=== PATIENT | female | born 1970 | race Caucasian/White ===

== ENCOUNTER 2016-07-16 20:50 | Emergency (ER) | payer MEDICAID ==
[~2016-07-16] VITALS: Ht 167.6 cm; Wt 95.4 kg
[~2016-07-16 20:50] MED LIST: ALBU2.5V4 IH; ALPR0.5T PO; BREX0.5T PO; CEFD300C3 PO; CEPH-507 PO; CEPH500C PO; CEPH500T PO; CLIN150C17 PO; CLIN300C11 PO; DIAZ5TAB3; DICL25CA4 PO; DOXY100T2 PO; FLUO40CA PO; FLX20C; GABA800T2 PO; HYDR-3820 PO; HYDR-700 PO; HYDR-757 PO; HYDR25TA4 PO; HYDR50CA3 PO; IBUP-1780 PO; IVER3TAB2 PO; LAMO25TA; LEVE500T99 PO; LEVO100T PO; LEVO125T PO; LEVO125T6 PO; LEVO750T9 PO; LISI1TAB8 PO; MUPI15CR11 TP; NAPR500T PO; NITR-65 PO; NITR100C10 PO; Norflex PO; OMEP40CA36 PO; ONDA4TAB11 PO; PERM60CR4 TOP; PHEN-827 PO; PRAZ600T2 PO; PRD20T PO; RISP0.2552 PO; RT-ALBUINH IH; SUMA100T3; TOPI100T11 PO; TPR100T PO; TRAM50TA2 PO; TRAZ-28 PO; TRAZ100T92 PO; [UNRECOGNIZED DRUG - REMARK]
[2016-07-16] MEDS ORDERED: ASPIRIN 81 MG CHEW (CHILDREN'S ASA) PO ONE (21:30)
[2016-07-16 21:44] LABS: BASOPHILS # (AUTO) 0.1 10^3/uL (0.0-0.1); BASOPHILS % (AUTO) 1 % (0-10); EOSINOPHILS # (AUTO) 0.4 10^3/uL (0.0-0.3); EOSINOPHILS % (AUTO) 4 % (0-10); LYMPHOCYTES # (AUTO) 5.1 X 10^3 (1.0-4.0); LYMPHOCYTES % (AUTO) 48 % (12-44); MEAN CORPUSCULAR HEMOGLOBIN 32 PG (25-34); MEAN CORPUSCULAR HGB CONC 34 G/DL (32-36); MEAN CORPUSCULAR VOLUME 93 FL (80-99); MEAN PLATELET VOLUME 9.8 FL (7.4-10.4); MONOCYTES # (AUTO) 0.9 X 10^3 (0.0-1.0); MONOCYTES % (AUTO) 9 % (0-12); NEUTROPHILS # (AUTO) 4.2 X 10^3 (1.8-7.8); NEUTROPHILS % (AUTO) 39 % (42-75); PLATELET COUNT 314 10^3/uL (130-400); RED BLOOD COUNT 4.42 10^6/uL (4.35-5.85); RED CELL DISTRIBUTION WIDTH 14.4 % (10.0-14.5); WHITE BLOOD COUNT 10.7 10^3/uL (4.3-11.0)
[2016-07-16 21:55] LABS: PROTHROMBIN TIME PATIENT 12.8 SEC (12.2-14.7)
[2016-07-16] MEDS ORDERED: RT-ALBUTEROL/IPRATROPIUM 3 ML (DUONEB) VIAL INH ONE (22:00)
[2016-07-16 22:04] LABS: ANION GAP 9 MMOL/L (5-14); BLOOD UREA NITROGEN 9 MG/DL (7-18); BUN/CREATININE RATIO 10; CARBON DIOXIDE 25 MMOL/L (21-32); CHLORIDE 108 MMOL/L (98-107); CREATININE SERUM 0.93 MG/DL (0.60-1.30); POTASSIUM 3.9 MMOL/L (3.6-5.0); SODIUM 142 MMOL/L (135-145)
[2016-07-16 22:05] LABS: ALANINE AMINOTRANSFERASE 10 U/L (0-55); ALBUMIN 3.8 G/DL (3.2-4.5); ASPARTATE AMINO TRANSFERASE 16 U/L (5-34); BILIRUBIN,TOTAL 0.2 MG/DL (0.1-1.0); CALCIUM 8.7 MG/DL (8.5-10.1); GFR ESTIMATED > 60; GLUCOSE 82 MG/DL (70-105); MAGNESIUM 2.4 MG/DL (1.8-2.4); TOTAL PROTEIN 6.9 G/DL (6.4-8.2)
[2016-07-16 22:10] LABS: MYOGLOBIN SERUM 27.1 NG/ML (10.0-92.0)
[2016-07-16] MEDS ORDERED: ONDA4TAB8 SL (23:11)
[2016-07-16] MEDS ORDERED: RT-ALBUINH IH (23:11)
--- NOTE | 2016-07-16 23:11 | ED Chest Pain ---
General Chief Complaint: General Problems/Pain Stated Complaint: LOW BP/VOMITING/CP/L SIDE NUMBNESS Nursing Triage Note: PT REPORTS SHE HAS HAD CP, DIZZINESS, DUNCAN, L ARM PAIN THAT HAS BEEN GOING ON FOR MONTHS. SHE REPORTS FATIGUE AND POOR APPETITE WELL. Nursing Sepsis Screen: No Definite Risk Source: patient Exam Limitations: no limitations History of Present Illness Time seen by provider: 21:16 Initial Comments This 45-year-old woman presents to the emergency room with numerous vague complaints. She describes vomiting in the parking lot just prior to checking in. She reports left facial numbness without weakness, lightheadedness, headache, and left chest and arm pain. The pain is reproducible with palpation. She reports having chest pain and shortness of air since having sepsis in February. Symptoms have been worse the past couple of days. She has had a remote cardiac workup but nothing performed recently. She complains of poor appetite recently. Pain is somewhat dependent on position and feels better when she is lying flat and still. She reports using her sister's supplemental oxygen at home which was helpful. She reports pain is a heaviness that is rated as a 10 at its worst and 7/10 now. She also complains of congestion, wheezing, and cough 3 months. She is a smoker. Allergies and Home Medications Allergies Coded Allergies: Sulfa (Sulfonamide Antibiotics) (Unverified Allergy, Severe, 11/30/06) PT STATES SHE'S "DEATHLY" ALLERGIC TO SULFA amoxicillin (Unverified Allergy, Severe, 11/30/06) Penicillins (Verified Allergy, Unknown, 12/22/06) moxifloxacin (Verified Allergy, Unknown, "HIGH FEVER, DIDN'T WAKE UP", CAN TAKE LEVAQUIN W/O PROBLEM, 12/22/06) Uncoded Allergies: AVALOX (Allergy, Intermediate, 11/30/06) FEVER AND VOMITTING Home Medications Albuterol Sulfate 18 Gm Hfa.aer.ad, 2 PUFF IH Q4H PRN for SHORTNESS OF BREATH, ( Reported) Albuterol Sulfate 2.5 Mg/3 Ml Vial.neb, 2.5 MG IH Q4H PRN for SHORTNESS OF BREATH, #30 Ref 1 Prescribed by: LIZBETH COFFMAN on 02/26/16 0066 Albuterol Sulfate 1 Puff Puff, 1-4 PUFF IH Q4H, #1 1 PUFF = 90 MCG Prescribed by: PAVEL JOY on 07/16/16 2311 Alprazolam 0.5 Mg Tablet, 0.5 MG PO BID PRN for ANXIETY, (Reported) Brexpiprazole 0.5 Mg Tablet, 0.5 MG PO UD, (Reported) FILLED 02/19/16 #30 1 TAB PO QD X 10 DAYS; THEN 2 TABS QD THEREAFTER Fluoxetine HCl 40 Mg Capsule, 40 MG PO DAILY, (Reported) Gabapentin 800 Mg Tablet, 800 MG PO TID, (Reported) Hydroxyzine Pamoate 50 Mg Capsule, 50 MG PO BID PRN for ANXIETY, (Reported) Ibuprofen 800 Mg Tablet, 800 MG PO TID PRN for PAIN, (Reported) Ivermectin 3 Mg Tablet, 3 MG PO ONCE, #1 Prescribed by: PAVEL JOY on 03/01/16 1230 Levothyroxine Sodium 125 Mcg Tablet, 125 MCG PO DAILY, (Reported) Lisinopril/Hydrochlorothiazide 1 Each Tablet, 1 TAB PO DAILY, (Reported) Omeprazole 40 Mg Capsule.dr, 40 MG PO DAILY, (Reported) Ondansetron 4 Mg Tab.rapdis, 4 MG SL Q4H, #10 Prescribed by: PAVEL JOY on 07/16/16 2311 Risperidone 0.25 Mg Tab.rapdis, 0.25 MG PO HS PRN for BAD THOUGHTS , (Reported) Sumatriptan Succinate 100 Mg Tablet, #9 (Reported) ONE TAB DAILY NEEDED; MAY REPEAT IN 2 HOURS IF HEADACHE REOCCURS Topiramate 100 Mg Tablet, 150 MG PO BID, (Reported) TAKES 1 & 1/2 OF A (100 MG) TABLETS Tramadol HCl 50 Mg Tablet, 50 MG PO Q6H PRN for PAIN, (Reported) Trazodone HCl 50 Mg Tablet, 50-100 MG PO HS PRN for SLEEP, (Reported) TAKES 1-2 (50 MG) TABLETS [Water Pill Otc ] , (Reported) Review of Systems Constitutional: see HPI EENTM: No Symptoms Reported Respiratory: See HPI Cardiovascular: See HPI Gastrointestinal: See HPI Genitourinary: No Symptoms Reported Musculoskeletal: see HPI Skin: no symptoms reported Psychiatric/Neurological: See HPI Endocrine: No Symptoms Reported Past Htnrkpq-Fgcbqg-Yckkwo Hx Patient Social History Alcohol Use: Denies Use Recreational Drug Use: No Smoking Status: Current Everyday Smoker Type Used: Cigarettes Recent Foreign Travel: No Contact w/Someone Who Travel: No Recent Infectious Disease Expo: No Recent Hopitalizations: No Immunizations Up To Date Tetanus Booster (TDap): More than 5yrs PED Vaccines UTD: No Date of Pneumonia Vaccine: Nov 26, 1999 Date of Influenza Vaccine: Feb 26, 2016 Seasonal Allergies Seasonal Allergies: No Surgeries HX Surgeries: Yes Surgeries: Appendectomy, Section, Gallbladder, Hysterectomy, Oophorectomy, Tubal Ligation Respiratory Hx Respiratory Disorders: Yes Respiratory Disorders: Pneumonia, COPD Cardiovascular Hx Cardiac Disorders: No Neurological Hx Neurological Disorders: Yes (CHRONIC HEADACHES) Neurological Disorders: Dementia, Headaches /Migraines, Seizure Disorder, Traumatic Brain Injury 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 System Hx 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 Disorders: No Sexually Transmitted Disease: No HIV/AIDS: No Female 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 Disorders: Denies FIELD TRAINER History: Hysterectomy Genitourinary Hx Genitourinary Disorders: Yes Genitourinary Disorders: Renal Failure, UTI-Chronic Gastrointestinal Hx Gastrointestinal Disorders: Yes Gastrointestinal Disorders: Gastroesophageal Reflux Musculoskeletal Hx Musculoskeletal Disorders: Yes Musculoskeletal Disorders: Degenerate Disk Disease, Chronic Back Pain Endocrine Hx Endocrine Disorders: Yes Endocrine Disorders: Hypothyroidsim HEENT HX ENT Disorders: No Loss of Vision: Denies Hearing Impairment: Denies Cancer Hx Cancer: No Psychosocial Hx Psychiatric Problems: Yes Behavioral Health Disorders: Anxiety, Depression Integumentary HX Skin/Integumentary Disorder: Yes (MRSA) Blood Transfusions Hx Blood Disorders: No Adverse Reaction to a Blood Tr: No Family Medical History Significant Family History: Diabetes, Psychiatric Problems, Renal Disease, Stroke, Vascular Disease Family Medial History: Arthritis 19 MOTHER GRANDMOTHER Cataracts GRANDMOTHER GRANDMOTHER Congenital heart disease 19 FATHER Diabetes mellitus 19 MOTHER FH: defects GRAND-DAUGHTER (3 LUNGS, 36 FINGER AND TOES) FH: brain aneurysm FH: irritable bowel syndrome 19 MOTHER FH: ovarian cancer PATERNAL AUNTS FH: pneumonia 19 MOTHER FH: uterine cancer PATERNAL AUNTS Glaucoma GRANDMOTHER GRANDMOTHER Kidney infection 19 FATHER Visual disorder GRANDMOTHER GRANDMOTHER Physical Exam Vital Signs Vital Sign - Last 12Hours 07/16/16 21:13 Temp 98.9 Pulse 53 Resp 16 B/P (MAP) 115/78 Pulse Ox 100 O2 Delivery Room Air Capillary Refill : Less Than 3 Seconds General Appearance: WD/WN, Mild Distress HEENT: PERRL/EOMI, Normal ENT Inspection, Pharynx Normal Neck: Normal Inspection Respiratory: No Accessory Muscle Use, No Respiratory Distress, Wheezing, Other (Left chest wall tender to palpation) Cardiovascular: Regular Rate, Rhythm, No Edema, No Murmur Gastrointestinal: Normal Bowel Sounds, Non Tender, Soft Extremity: Normal Inspection, No Pedal Edema, Calf Tenderness (Equal bilaterally) Neurologic/Psychiatric: Alert, Oriented x3, No Motor/Sensory Deficits, biologist aide II- XII Norm as Tested, Other (Anxious) Skin: Normal Color, Warm/Dry Progress/Results/Core Measures Results/Orders Lab Results Laboratory Tests Test 07/16/16 21:35 07/16/16 22:15 Range/Units White Blood Count 10.7 4.3-11.0 10^3/uL Red Blood Count 4.42 4.35-5.85 10^6/uL Hemoglobin 14.0 11.5-16.0 G/DL Hematocrit 41 35-52 % Mean Corpuscular Volume 93 80-99 FL Mean Corpuscular Hemoglobin 32 25-34 PG Mean Corpuscular Hemoglobin Concent 34 32-36 G/DL Red Cell Distribution Width 14.4 10.0-14.5 % Platelet Count 314 130-400 10^3/uL Mean Platelet Volume 9.8 7.4-10.4 FL Neutrophils (%) (Auto) 39 L 42-75 % Lymphocytes (%) (Auto) 48 H 12-44 % Monocytes (%) (Auto) 9 0-12 % Eosinophils (%) (Auto) 4 0-10 % Basophils (%) (Auto) 1 0-10 % Neutrophils # (Auto) 4.2 1.8-7.8 X 10^3 Lymphocytes # (Auto) 5.1 H 1.0-4.0 X 10^3 Monocytes # (Auto) 0.9 0.0-1.0 X 10^3 Eosinophils # (Auto) 0.4 H 0.0-0.3 10^3/uL Basophils # (Auto) 0.1 0.0-0.1 10^3/uL Prothrombin Time 12.8 12.2-14.7 SEC INR Comment 1.0 0.8-1.4 Activated Partial Thromboplast Time 29 24-35 SEC Sodium Level 142 135-145 MMOL/L Potassium Level 3.9 3.6-5.0 MMOL/L Chloride Level 108 H 98-107 MMOL/L Carbon Dioxide Level 25 21-32 MMOL/L Anion Gap 9 5-14 MMOL/L Blood Urea Nitrogen 9 7-18 MG/DL Creatinine 0.93 0.60-1.30 MG/DL Estimat Glomerular Filtration Rate > 60 BUN/Creatinine Ratio 10 Glucose Level 82 70-105 MG/DL Calcium Level 8.7 8.5-10.1 MG/DL Magnesium Level 2.4 1.8-2.4 MG/DL Total Bilirubin 0.2 0.1-1.0 MG/DL Aspartate Amino Transf (AST/SGOT) 16 5-34 U/L Alanine Aminotransferase (ALT/SGPT) 10 0-55 U/L Alkaline Phosphatase 86 40-136 U/L Myoglobin 27.1 10.0-92.0 NG/ML Troponin I < 0.30 <0.30 NG/ML C-Reactive Protein High Sensitivity 0.03 0.00-0.50 MG/DL Total Protein 6.9 6.4-8.2 G/DL Albumin 3.8 3.2-4.5 G/DL Urine Opiates Screen POSITIVE H NEGATIVE Urine Oxycodone Screen NEGATIVE NEGATIVE Urine Methadone Screen NEGATIVE NEGATIVE Urine Propoxyphene Screen NEGATIVE NEGATIVE Urine Barbiturates Screen NEGATIVE NEGATIVE Ur Tricyclic Antidepressants Screen NEGATIVE NEGATIVE Urine Phencyclidine Screen NEGATIVE NEGATIVE Urine Amphetamines Screen NEGATIVE NEGATIVE Urine Methamphetamines Screen NEGATIVE NEGATIVE Urine Benzodiazepines Screen NEGATIVE NEGATIVE Urine Cocaine Screen NEGATIVE NEGATIVE Urine Cannabinoids Screen NEGATIVE NEGATIVE My Orders Orders - PAVEL NASH MD Cbc With Automated Diff (07/16/16 21:25) Magnesium (07/16/16 21:25) Ekg Tracing (07/16/16 21:25) Cardiac Profile 1 (07/16/16 21:25) Comprehensive Metabolic Panel (07/16/16 21:25) Myoglobin Serum (07/16/16 21:25) Protime With Inr (07/16/16 21:25) Partial Thromboplastin Time (07/16/16 21:25) O2 (07/16/16 21:25) Monitor-Rhythm Ecg Trace Only (07/16/16 21:25) Aspirin Chewable Tablet (Baby Aspirin Ch (07/16/16 21:30) Saline Lock/Iv-Start (07/16/16 21:25) Hs C Reactive Protein (07/16/16 21:25) Drug Screen Stat (Urine) (07/16/16 21:25) Chest Pa/Lat (2 View) (07/16/16 21:28) Albuterol/Ipra Inhalation Soln (Duoneb I (07/16/16 22:00) Svn Sm Volume Nebulizer Rt-Rfs (07/16/16 21:57) Ketorolac Injection (Toradol Injection) (07/16/16 23:15) Medications Given in ED Vital Signs/I&O Vital Sign - Last 12Hours 07/16/16 07/16/16 07/16/16 21:13 22:04 23:24 Temp 98.9 Pulse 53 51 Resp 16 18 B/P (MAP) 115/78 Pulse Ox 100 98 96 O2 Delivery Room Air Blood Pressure Mean: 90 Progress Note : Progress Note Workup was relatively unremarkable. Patient received a DuoNeb treatment with some improvement. She requested to be dismissed after arrived. ECG Initial ECG Impression Date: Jul 16, 2016 Initial ECG Impression Time: 21:24 Initial ECG Rate: 52 Initial ECG Rhythm: Normal Sinus Comment Normal sinus rhythm with no ST elevation or depression. No abnormal intervals or axis deviation. Nonspecific T wave abnormalities. Diagnostic Imaging Diagonstic Imaging: Xray Plain Films/CT/US/NM/MRI: chest Comments Chest x-ray viewed by me. Report not yet available. No acute abnormalities appreciated. Departure Impression Impression: Primary Impression: Chest wall pain Additional Impressions: Headache Qualified Codes: R51 - Headache Nausea Myalgia Wheezing Disposition: 01 HOME, SELF-CARE Condition: Improved Departure-Patient Inst. Decision time for Depature: 23:00 Referrals: JOSE MCLEAN MD (PCP) Primary Care Physician [facility] (Family) Primary Care Physician Patient Instructions: Chest Pain That Is Not Caused by the Heart (DC) Add. Discharge Instructions: Follow-up with your primary care provider soon as possible. Return to the ER symptoms worsen. You may take Tylenol and/or ibuprofen for pain. Discontinue smoking as soon as possible. Use your inhaler as directed for wheezing. All discharge instructions reviewed with patient and/or family. Voiced understanding. Scripts Ondansetron (Zofran Odt) 4 Mg Tab.rapdis 4 MG SL Q4H, #10 TAB Prov: PAVEL NASH MD 07/16/16 Albuterol Sulfate (PROAIR HFA) 1 Puff Puff 1-4 PUFF IH Q4H, #1 PUFF 1 PUFF = 90 MCG Prov: PAVEL NASH MD 07/16/16 Copy Copies To 1: JOSE MCLEAN MD, JOSHUA T MD Jul 16, 2016 23:11
[2016-07-16] MEDS ORDERED: KETOROLAC 30 MG/ML VIAL IVP ONE (23:15)
[2016-07-16 23:24] VITALS: BP 97/61
--- NOTE | 2016-07-17 07:50 | Diagnostic Imaging Report ---
EXAMINATION: PA and lateral views of the chest. INDICATION: Chest pain and headache. FINDINGS: The lungs are clear. The heart size is normal. No effusion or pneumothorax Mediastinum and jeannie appear unremarkable. IMPRESSION: Unremarkable exam. Dictated by: Dictated on workstation # [id number]
--- OUTSIDE RECORDS SUMMARY | 2016-08-17 00:16 | XMS REPORT ---
Author Author GLADYS AUSTIN Organization [employer] Address Unknown Phone Unavailable Care Team Providers Care Camp Tender Name Role Phone GLADYS AUSTIN CP Unavailable Allergies No Known Allergies Problems Problem Type Condition Code Onset Dates Condition Status Problem Unspecified constipation 564.00 Active Problem Cellulitis and abscess of face 682.0 Active Problem Abdominal pain, generalized 789.07 Active Problem Diarrhea 787.91 Active Problem Acute nasopharyngitis (common cold) 460 Active Problem Lumbago 724.2 Active Problem Chest pain, unspecified 786.50 Active Problem Helicobacter pylori (H. pylori) infection 041.86 Active Problem Acute sinusitis, unspecified 461.9 Active Problem Cellulitis and abscess of leg, except foot 682.6 Active Problem Chronic back pain 724.5 Active Problem COPD (chronic obstructive pulmonary disease) 496 Active Problem PTSD (post-traumatic stress disorder) 309.81 Active Problem UTI (urinary tract infection) 599.0 Active Problem Pyelonephritis 590.80 Active Problem Special screening examination, human papillomavirus [HPV] V73.81 Active Problem Screening for malignant neoplasm of the cervix V76.2 Active Problem Facial abscess L02.01 Active Problem Unspecified breast screening V76.10 Active Problem Migraine 346.90 Active Problem Depression 311 Active Problem Degenerative disc disease, lumbar 722.52 Active Problem Insomnia 780.52 Active Problem Other affections of shoulder region, not elsewhere classified 726.2 Active Problem Esophageal reflux 530.81 Active Problem Urinary tract infection, site not specified 599.0 Active Problem Restless legs syndrome [RLS] 333.94 Active Problem Acute bronchitis 466.0 Active Problem Palpitations 785.1 Active Problem Pain in joint, pelvic region and thigh 719.45 Active Problem Thoracic or lumbosacral neuritis or radiculitis, unspecified 724.4 Active Medications Medication Code System Code Instructions Start Date End Date Status Dosage Diflucan [facility] [address]-11 150 MG Orally Once a day, repeat in 1 week Feb 04, 2015 1 tablet Results No Known Results Summary Purpose [employer] Submission
--- OUTSIDE RECORDS SUMMARY | 2016-08-17 00:16 | XMS REPORT ---
Author Author GLADYS AUSTIN Organization [employer] Address Unknown Phone Unavailable Care Team Providers Care Monorail Helper Name Role Phone GLADYS AUSTIN CP Unavailable Allergies No Known Allergies Problems Problem Type Condition ICD-9 Code Onset Dates Condition Status Problem Unspecified constipation 564.00 Active Problem Cellulitis and abscess of face 682.0 Active Problem Abdominal pain, generalized 789.07 Active Problem Diarrhea 787.91 Active Problem Acute nasopharyngitis (common cold) 460 Active Problem Palpitations 785.1 Active Problem Lumbago 724.2 Active Problem Chest pain, unspecified 786.50 Active Problem Helicobacter pylori (H. pylori) infection 041.86 Active Problem Acute sinusitis, unspecified 461.9 Active Problem PTSD (post-traumatic stress disorder) 309.81 Active Problem Chronic back pain 724.5 Active Problem Pyelonephritis 590.80 Active Problem Degenerative disc disease, lumbar 722.52 Active Problem Screening for malignant neoplasm of the cervix V76.2 Active Problem Unspecified breast screening V76.10 Active Problem UTI (urinary tract infection) 599.0 Active Problem Cellulitis and abscess of leg, except foot 682.6 Active Problem Depression 311 Active Problem COPD (chronic obstructive pulmonary disease) 496 Active Problem Insomnia 780.52 Active Problem Migraine 346.90 Active Problem Restless legs syndrome [RLS] 333.94 Active Problem Other affections of shoulder region, not elsewhere classified 726.2 Active Problem Special screening examination, human papillomavirus [HPV] V73.81 Active Problem Urinary tract infection, site not specified 599.0 Active Problem Thoracic or lumbosacral neuritis or radiculitis, unspecified 724.4 Active Problem Acute bronchitis 466.0 Active Problem Esophageal reflux 530.81 Active Problem Pain in joint, pelvic region and thigh 719.45 Active Medications No Known Medications Results No Known Results Summary Purpose [employer]Clinical[employer] Submission
--- OUTSIDE RECORDS SUMMARY | 2016-08-17 00:17 | XMS REPORT ---
Author Author GLADYS AUSTIN [facility] e[employer] Address Unknown Phone Unavailable Care Team Providers Care Emergency Vehicle Operations Instructor Name Role Phone GLADYS AUSTIN CP Unavailable Allergies, Adverse Reactions, Alerts Substance Reaction Event Type SulfADIAZINE rash Drug Allergy Depakote nausea Drug Allergy Avelox rash Drug Allergy Augmentin rash Drug Allergy Problems Problem Type Condition Code Onset Dates Condition Status Problem Unspecified constipation 564.00 Active Assessment Right wrist pain M25.531 Active Problem Abdominal pain, generalized 789.07 Active Problem Cellulitis and abscess of face 682.0 Active Problem Diarrhea 787.91 Active Problem Acute nasopharyngitis (common cold) 460 Active Problem Lumbago 724.2 Active Problem Helicobacter pylori (H. pylori) infection 041.86 Active Problem Cellulitis and abscess of leg, except foot 682.6 Active Problem Chronic back pain 724.5 Active Problem Unspecified breast screening V76.10 Active Problem PTSD (post-traumatic stress disorder) 309.81 Active Problem Screening for malignant neoplasm of the cervix V76.2 Active Problem COPD (chronic obstructive pulmonary disease) 496 Active Problem Migraine 346.90 Active Problem Depression 311 Active Problem Strain of right wrist S66.911A Active Problem Facial abscess L02.01 Active Problem Restless legs syndrome [RLS] 333.94 Active Problem Urinary tract infection, site not specified 599.0 Active Problem Right wrist pain M25.531 Active Problem Special screening examination, human papillomavirus [HPV] V73.81 Active Problem Degenerative disc disease, lumbar 722.52 Active Problem Insomnia 780.52 Active Problem UTI (urinary tract infection) 599.0 Active Problem Pyelonephritis 590.80 Active Problem Pain in joint, pelvic region and thigh 719.45 Active Problem Thoracic or lumbosacral neuritis or radiculitis, unspecified 724.4 Active Problem Other affections of shoulder region, not elsewhere classified 726.2 Active Problem Esophageal reflux 530.81 Active Problem Chest pain, unspecified 786.50 Active Problem Acute sinusitis, unspecified 461.9 Active Problem Acute bronchitis 466.0 Active Problem Palpitations 785.1 Active Medications Medication Code System Code Instructions Start Date End Date Status Dosage Gabapentin [facility] [address]-95 800 MG Orally Three times a day 1 tablet Lisinopril-Hydrochlorothiazide [facility] [address]-79 20-12.5 MG Orally Once a day Jan 29, 2015 1 tablet Omeprazole [facility] [address]-32 40 MG Orally Once a day 1 capsule Tramadol HCl [facility] [address]-12 50 MG Orally Once a day at Apr 08, 2015 1 tablet as needed Ibuprofen [facility] [address]-83 800 MG Orally Three times a day 1 tablet Topiramate [facility] [address]-45 100 MG Orally Twice a day 1 tablet Procedures Procedure Coding System Code Date Office Visit, Est Pt., Level 3 CPT-4 78795 Apr 08, 2015 Vital Signs Date/Time: Apr 08, 2015 Temperature 98.0 F Weight 190.8 lbs Height 64 in BMI 32.75 Index Blood Pressure Diastolic 86 mmHg Blood Pressure Systolic 112 mmHg Cardiac Monitoring Heart Rate 68 bpm Results No Known Results Summary Purpose [employer]ClinicalWorks Submission
--- OUTSIDE RECORDS SUMMARY | 2016-08-17 00:17 | XMS REPORT ---
Author Author JAI CORTEZ [facility] e[employer] Address Unknown Phone Unavailable Care Team Providers Care Nurse Behavioral Health Care Name Role Phone JAI CORTEZ CP Unavailable Allergies No Known Allergies Problems Problem Type Condition Code Onset Dates Condition Status Problem Hx of migraines Z86.69 Active Problem GERD (gastroesophageal reflux disease) K21.9 Active Problem HTN (hypertension) I10 Active Problem History of MRSA infection Z86.14 Active Problem Family history of diabetes mellitus Z83.3 Active Problem Lumbago with sciatica, left side M54.42 Active Problem Schizoaffective disorder, unspecified type F25.9 Active Problem Lumbago with sciatica, right side M54.41 Active Problem History of seizures Z87.898 Active Problem Hypothyroidism E03.9 Active Problem Anxiety state, unspecified F41.1 Active Problem Depression, unspecified depression type F32.9 Active Medications Medication Code System Code Instructions Start Date End Date Status Dosage Questran Light [facility] [address]-29 4 GM/DOSE Orally Twice a day Dec 09, 2015 1 null Results No Known Results Summary Purpose [employer]ClinicalWorks Submission
--- OUTSIDE RECORDS SUMMARY | 2016-08-17 00:17 | XMS REPORT ---
Author JAI Dobbins [facility] e[employer] Address Unknown Phone Unavailable Care Team Providers Care Production Or Plant Engineer Name Role Phone JAI CORTEZ CP Unavailable Allergies, Adverse Reactions, Alerts Substance Reaction Event Type Sulfamethoxazole-Trimethoprim anaphylaxis Drug Allergy Sulfamethoxazole-Trimethoprim anaphylaxis Drug Allergy Levaquin Info Not Available Drug Allergy Depakote nausea Drug Allergy Avelox rash Drug Allergy Augmentin anaphylaxis Drug Allergy Augmentin rash Drug Allergy Problems Problem Type Condition Code Onset Dates Condition Status Problem Hx of migraines Z86.69 Active Problem GERD (gastroesophageal reflux disease) K21.9 Active Problem HTN (hypertension) I10 Active Problem Lumbago with sciatica, left side M54.42 Active Problem Schizoaffective disorder, unspecified type F25.9 Active Problem Lumbago with sciatica, right side M54.41 Active Problem History of seizures Z87.898 Active Problem Hypothyroidism E03.9 Active Problem Anxiety state, unspecified F41.1 Active Problem Depression, unspecified depression type F32.9 Active Assessment HTN (hypertension) I10 Active Assessment Lumbago with sciatica, right side M54.41 Active Assessment Depression, unspecified depression type F32.9 Active Assessment Other chronic pain G89.29 Active Problem History of MRSA infection Z86.14 Active Assessment Lumbago with sciatica, left side M54.42 Active Problem Family history of diabetes mellitus Z83.3 Active Medications Medication Code System Code Instructions Start Date End Date Status Dosage Valium [facility] [address]-37 5 mg Orally Once a day October 22, 2015 1 tablet as needed HydrOXYzine HCl [facility] [address]-70 50 MG Orally every 6 hrs 1 tablet as needed Omeprazole [facility] [address]-93 40 MG Orally Once a day 1 capsule Promethazine HCl [facility] [address]-99 25 MG Orally every 12 hrs October 03, 2015 1 tablet as needed Prozac [facility] [address]-04 40 mg Orally Once a day October 22, 2015 1 capsule in the morning Zofran [facility] [address]-17 8 MG Orally 3 times a day 1 tablet as needed Keppra [facility] [address]-14 500 MG Orally 2 times a day 1 tablet Ibuprofen [facility] [address]-08 800 MG Orally Three times a day 1 tablet Gabapentin [facility] [address]-89 800 MG Orally Three times a day 1 tablet Ventolin HFA [facility] [address]-20 108 (90 Base) MCG/ACT Inhalation every 4 hrs 2 puffs as needed Levothyroxine Sodium [facility] [address]-56 125 mcg Orally Once a day 1 tablet Lisinopril [facility] [address]-00 10 mg Orally Once a day October 31, 2015 1 tablet Tramadol HCl [facility] [address]-11 50 mg Orally every 6 hours 1 Procedures Procedure Coding System Code Date Office Visit, Est Pt., Level 4 CPT-4 20234 October 31, 2015 Vital Signs Date/Time: October 31, 2015 Cardiac Monitoring Heart Rate 68 bpm Weight 186.2 lbs Height 64 in Blood Pressure Diastolic 70 mmHg Blood Pressure Systolic 94 mmHg Results No Known Results Summary Purpose eClinicalWorks Submission
--- OUTSIDE RECORDS SUMMARY | 2016-08-17 00:17 | XMS REPORT ---
Author Author GLADYS AUSTIN [facility] eClinicalWorks Address Unknown Phone Unavailable Care Team Providers Care Lathe Setup Operator Name Role Phone GLADYS AUSTIN CP Unavailable Allergies, Adverse Reactions, Alerts Substance Reaction Event Type SulfADIAZINE rash Drug Allergy Depakote nausea Drug Allergy Avelox rash Drug Allergy Augmentin rash Drug Allergy Problems Problem Type Condition Code Onset Dates Condition Status Assessment Essential hypertension I10 Active Problem Unspecified constipation 564.00 Active Assessment Cellulitis and abscess of face 682.0 Active Problem Cellulitis and abscess of face [...] Instructions Start Date End Date Status Dosage Omeprazole [facility] [address]-11 40 MG Orally Once a day 1 capsule Bactroban [facility] [address]-42 2 % Externally Three times a day 1 application to affected area Clindamycin HCl [facility] [address]-03 300 MG Orally every 8 hrs Jan 22, 2015 Feb 01, 2015 1 capsule Tramadol HCl [facility] [address]-16 50 MG Orally 3 times a day, PRN Dec 26, 2014 1 tablet as needed Doxycycline Hyclate [facility] [address]-74 100 MG Orally every 12 hrs 1 capsule Potassium Chloride [facility] [address]-48 20 MEQ Orally Twice a day 1 tablet Topiramate [facility] [address]-98 100 MG Orally Twice a day 1 tablet Ibuprofen [facility] [address]-17 800 MG Orally Three times a day 1 tablet Gabapentin [facility] [address]-65 800 MG Orally Three times a day 1 tablet Lisinopril-Hydrochlorothiazide [facility] [address]-25 20-12.5 MG Orally Once a day Jan 29, 2015 1 tablet Rifampin [facility] [address]-62 300 MG Orally 3 times a day Jan 22, 2015 1 cap Procedures Procedure Coding System Code Date Office Visit, Est Pt., Level 3 CPT-4 03528 Jan 29, 2015 Vital Signs Date/Time: Jan 29, 2015 Temperature 98 F Weight 187 lbs Height 64 in BMI 32.09 Index Blood Pressure Diastolic 95 mmHg Blood Pressure Systolic 150 mmHg Cardiac Monitoring Heart Rate 70 bpm Results No Known Results Summary Purpose eClinicalWorks Submission
--- OUTSIDE RECORDS SUMMARY | 2016-08-17 00:18 | XMS REPORT ---
Author Author JOSE MCLEAN Organization eClinicalWorks Address Unknown Phone Unavailable Care Team Providers Care Board Finisher Name Role Phone JOSE MCLEAN CP Unavailable Allergies No Known Allergies Problems Problem Type Condition Code Onset Dates Condition Status Problem GERD (gastroesophageal reflux disease) K21.9 Active Problem History of seizures Z87.898 Active Problem Hypothyroidism E03.9 Active Problem Irritable bowel syndrome with diarrhea K58.0 Active Problem Lumbago with sciatica, right side M54.41 Active Problem High risk sexual behavior Z72.51 Active Problem Anxiety state, unspecified F41.1 Active Problem Depression, unspecified depression type F32.9 Active Problem Lumbago with sciatica, left side M54.42 Active Problem Schizoaffective disorder, unspecified type F25.9 Active Problem History of MRSA infection Z86.14 Active Problem Family history of diabetes mellitus Z83.3 Active Problem Hx of migraines Z86.69 Active Problem HTN (hypertension) I10 Active Medications Medication Code System Code Instructions Start Date End Date Status Dosage Magic Mouthwash NDC 0 30 ML each of 2% Viscous Lidocaine/Maalox/Benadryl Oral Swish and Spit 4 times daily as needed Mar 03, 2016 Mar 17, 2016 5 ML Results No Known Results Summary Purpose eClinicalWorks Submission
--- OUTSIDE RECORDS SUMMARY | 2016-08-17 00:18 | XMS REPORT ---
Author Author JOSE MCLEAN [facility] eClinicalWorks Address Unknown Phone Unavailable Care Team Providers Care Author Agent Name Role Phone JOSE MCLEAN CP Unavailable Allergies, Adverse Reactions, Alerts Substance Reaction Event Type Sulfamethoxazole-Trimethoprim anaphylaxis Drug Allergy Levaquin Info Not Available Drug Allergy Depakote nausea Drug Allergy Avelox rash Drug Allergy Augmentin anaphylaxis Drug Allergy Problems Problem Type Condition Code [...] Problem Schizoaffective disorder, unspecified type F25.9 Active Assessment Hypotension, unspecified hypotension type I95.9 Active Assessment Acute cystitis with hematuria N30.01 Active Problem History of MRSA infection Z86.14 Active Problem Family history of diabetes mellitus Z83.3 Active Assessment History of MRSA infection Z86.14 Active Problem Hx of migraines Z86.69 Active Assessment Community acquired pneumonia J18.9 Active Problem HTN (hypertension) I10 Active Medications Medication Code System Code Instructions Start Date End Date Status Dosage Imitrex [facility] [address]-19 100 MG Orally 1 time per day and repeat once more after 2 hours if headache recurs PRN Nov 29, 2015 1 tablet Tramadol HCl [facility] [address]-96 50 mg Orally every 6 hours 1 Ventolin HFA [facility] [address]-23 108 (90 Base) MCG/ACT Inhalation every 4 hrs 2 puffs as needed Abilify [facility] [address]-42 5 mg Orally Once a day Jan 14, 2016 1 tablet Omeprazole [facility] [address]-81 40 MG Orally Once a day 1 capsule Topiramate [facility] [address]-54 100 MG Orally Twice a day 1.5 tablets Omeprazole [facility] [address]-02 40 mg Orally Once a day 1 capsule Prozac [facility] [address]-55 40 mg Orally Once a day October 22, 2015 1 capsule in the morning Lisinopril [facility] [address]-89 10 mg Orally Once a day October 31, 2015 1 tablet Gabapentin [facility] [address]-16 800 MG Orally Three times a day 1 tablet Alprazolam [facility] [address]-97 0.5 MG Orally Twice a day as needed 1 tablet HydrOXYzine HCl [facility] [address]-16 50 MG Orally every 6 hrs 1 tablet as needed Levothyroxine Sodium [facility] [address]-10 125 mcg Orally Once a day 1 tablet Procedures Procedure Coding System Code Date Office Visit, Est Pt., Level 4 CPT-4 28776 Feb 25, 2016 MEASURE BLOOD OXYGEN LEVEL CPT-4 90911 Feb 25, 2016 Vital Signs Date/Time: Feb 25, 2016 Cardiac Monitoring Heart Rate 59 bpm Weight 206.9 lbs Height 64 in BMI 35.51 Index Oximetry 99 % Blood Pressure Diastolic 77 mmHg Blood Pressure Systolic 92 mmHg Results No Known Results Summary Purpose eClinicalWorks Submission
--- OUTSIDE RECORDS SUMMARY | 2016-08-17 00:18 | XMS REPORT ---
Author Author GLADYS AUSTIN [facility] eClinicalWorks Address Unknown Phone Unavailable Care Team Providers Care Cras Name Role Phone GLADYS AUSTIN CP Unavailable Allergies, Adverse Reactions, Alerts Substance Reaction Event Type SulfADIAZINE rash Drug Allergy Depakote nausea Drug Allergy Avelox rash Drug Allergy Augmentin rash Drug Allergy Problems Problem Type Condition Code Onset Dates Condition Status Problem Unspecified constipation 564.00 Active Assessment Facial abscess L02.01 Active Problem Cellulitis and abscess of face [...] Instructions Start Date End Date Status Dosage Bactroban [facility] [address]-17 2 % Externally Three times a day 1 application to affected area Gabapentin [facility] [address]-40 800 MG Orally Three times a day [address] [facility] [address]-11 20 MEQ Orally Twice a day [address] [facility] [address]-54 300 MG Orally every 8 hrs Jan 22, 2015 Feb 01, [address] [facility] [address]-48 40 MG Orally Once a day [address] [facility] [address]-78 100 MG Orally Twice a day [address] [facility] [address]-68 300 MG Orally 3 times a day Jan 22, [address] [facility] [address]-44 100 MG Orally every 12 hrs [address] [facility] [address]-26 50 MG Orally 3 times a day, PRN Dec 26, 2014 1 tablet as needed Ibuprofen [facility] [address]-70 800 MG Orally Three times a day 1 tablet Procedures Procedure Coding System Code Date ROCEPHIN 1 GM (IM) CPT-4 J0696 Jan 22, 2015 THER/PROPH/DIAG INJ, SC/IM CPT-4 73238 Jan 22, 2015 Office Visit, Est Pt., Level 3 CPT-4 25076 Jan 22, 2015 Vital Signs Date/Time: Jan 22, 2015 Temperature 97.8 F Weight 191 lbs Height 64 in BMI 32.78 Index Blood Pressure Diastolic 80 mmHg Blood Pressure Systolic 130 mmHg Cardiac Monitoring Heart Rate 61 bpm Results No Known Results Summary Purpose eClinicalWorks Submission
--- OUTSIDE RECORDS SUMMARY | 2016-08-17 00:18 | XMS REPORT ---
Author Author NICOLA SYLVESTER Organization eClinicalWorks Address Unknown Phone Unavailable Care Team Providers Care Hoseman Name Role Phone NICOLA SYLVESTER CP Unavailable Allergies, Adverse Reactions, Alerts Substance Reaction Event Type SulfADIAZINE rash Drug Allergy Levaquin Info Not Available Drug Allergy Depakote nausea Drug Allergy Avelox rash Drug Allergy Augmentin rash Drug Allergy Problems Problem Type Condition Code Onset Dates Condition Status Assessment Obesity E66.9 Active Assessment Urinary tract infection N39.0 Active Assessment Abnormal lung sounds R09.89 Active Assessment Cervicalgia M54.2 Active Assessment Dysuria R30.0 Active Assessment History of seizures Z87.898 Active Assessment History of tremor G25.0 Active Assessment History of chronic pain Z87.898 Active Assessment Exposure to hepatitis Z20.5 Active Problem History of drug abuse Z87.898 Active Assessment Right upper quadrant pain R10.11 Active Problem Urinary tract infection N39.0 Active Assessment General medical exam Z00.00 Active Problem Obesity E66.9 Active Problem Abnormal lung sounds R09.89 Active Problem Cervicalgia M54.2 Active Problem Right upper quadrant pain R10.11 Active Problem Exposure to hepatitis Z20.5 Active Problem Family history of diabetes mellitus Z83.3 Active Problem History of MRSA infection Z86.14 Active Assessment Hx of migraines Z86.69 Active Problem General medical exam Z00.00 Active Problem Urinary tract infection, site not specified N39.0 Active Assessment Family history of brain aneurysm Z82.49 Active Problem History of seizures Z87.898 Active Assessment Family history of cancer Z80.9 Active Problem Dysuria R30.0 Active Assessment Family history of diabetes mellitus Z83.3 Active Problem History of chronic pain Z87.898 Active Assessment History of MRSA infection Z86.14 Active Problem History of tremor G25.0 Active Assessment History of chest pain Z87.898 Active Problem Hx of migraines Z86.69 Active Assessment History of drug abuse Z87.898 Active Problem High risk sexual behavior Z72.51 Active Assessment GERD (gastroesophageal reflux disease) K21.9 Active Problem Family history of cancer Z80.9 Active Assessment Hypothyroidism E03.9 Active Problem Family history of brain aneurysm Z82.49 Active Assessment High risk sexual behavior Z72.51 Active Problem Hypothyroidism E03.9 Active Assessment HTN (hypertension) I10 Active Problem History of chest pain Z87.898 Active Problem HTN (hypertension) I10 Active Problem GERD (gastroesophageal reflux disease) K21.9 Active Medications Medication Code System Code Instructions Start Date End Date Status Dosage Gabapentin [facility] [address]-01 800 MG Orally Three times a day 1 tablet Tylenol 8 Hour [facility] [address]-99 650 MG Orally every 8 hrs 1 tablet as needed Levothyroxine Sodium [facility] [address]-08 88 MCG Orally Once a day 1 tablet ProAir HFA [facility] [address]-96 108 (90 Base) MCG/ACT Inhalation every 4 hrs May 21, 2015 2 puffs as needed Lisinopril-Hydrochlorothiazide [facility] [address]-02 20-12.5 MG Orally Once a day Jan 29, 2015 1 tablet Topiramate [facility] [address]-60 100 MG Orally Twice a day 1 tablet Omeprazole [facility] [address]-98 40 MG Orally Once a day 1 capsule Doxycycline Monohydrate [facility] [address]-27 100 MG Orally every 12 hrs MayMay 31, 2015 1 tablet Macrobid [facility] [address]-22 100 MG Orally every 12 hrs May 24, 2015May 1 capsule with food Ibuprofen [facility] [address]-11 800 MG Orally Three times a day 1 tablet Procedures Procedure Coding System Code Date CHEST X-RAY CPT-4 48042 May 24, 2015 X-RAY EXAM OF NECK SPINE CPT-4 03258 May 24, 2015 URINALYSIS, AUTO, W/O SCOPE CPT-4 87249 May 24, 2015 Office Visit, Est Pt., Level 4 CPT-4 73971 May 24, 2015 URINE CULTURE/COLONY COUNT CPT-4 48952 May 24, 2015 Vital Signs Date/Time: May 24, 2015 Temperature 98.8 F Weight 187.6 lbs Height 64 in BMI 32.20 Index Blood Pressure Diastolic 84 mmHg Blood Pressure Systolic 104 mmHg Cardiac Monitoring Heart Rate 74 bpm Results No Known Results Summary Purpose eClinicalWorks Submission
--- OUTSIDE RECORDS SUMMARY | 2016-08-17 00:18 | XMS REPORT ---
Author Author JAI CORTEZ [facility] eClinicalWorks Address Unknown Phone Unavailable Care Team Providers Care Electrician Journeyman Wireman Name Role Phone JAI CORTEZ CP Unavailable [...] Depression, unspecified depression type F32.9 Active Medications No Known Medications Results No Known Results Summary Purpose eClinicalWorks Submission
--- OUTSIDE RECORDS SUMMARY | 2016-08-17 00:18 | XMS REPORT ---
Author Author BUTCH GARZA Organization eClinicalWorks Address Unknown Phone Unavailable Care Team Providers Care Loading Dock Hand Name Role Phone BUTCH GARZA CP Unavailable Allergies No Known Allergies Problems Problem Type Condition Code Onset Dates Condition Status Assessment Anxiety state, unspecified F41.1 Active Assessment Schizoaffective disorder, unspecified type F25.9 Active Problem Urinary tract infection, site not specified N39.0 Active Problem History of MRSA infection Z86.14 Active Problem Abnormal lung sounds R09.89 Active Problem Family history of diabetes mellitus Z83.3 Active Problem Dysuria R30.0 Active Problem Family history of cancer Z80.9 Active Problem History of seizures Z87.898 Active Problem History of chronic pain Z87.898 Active Problem History of tremor G25.0 Active Problem Anxiety state, unspecified F41.1 Active Problem Depression, unspecified depression type F32.9 Active Problem High risk sexual behavior Z72.51 Active Problem Hx of migraines Z86.69 Active Problem Schizoaffective disorder, unspecified type F25.9 Active Problem Family history of brain aneurysm Z82.49 Active Problem Right upper quadrant pain R10.11 Active Problem Exposure to hepatitis Z20.5 Active Problem Shortness of breath R06.02 Active Problem General medical exam Z00.00 Active Problem Hypothyroidism E03.9 Active Problem History of chest pain Z87.898 Active Problem HTN (hypertension) I10 Active Problem GERD (gastroesophageal reflux disease) K21.9 Active Problem Obesity E66.9 Active Problem Cervicalgia M54.2 Active Problem History of drug abuse Z87.898 Active Problem Urinary tract infection N39.0 Active Medications No Known Medications Procedures Procedure Coding System Code Date Psychotherapy, patient &/family, 30 minutes, established patient CPT-4 54105 October 22, 2015 Results No Known Results Summary Purpose eClinicalWorks Submission
--- OUTSIDE RECORDS SUMMARY | 2016-08-17 00:20 | XMS REPORT | Continuity of Care Document ---
Author Author [facility] Address Unknown Phone Unavailable Allergies Active Description Code Type Severity Reaction Onset Reported/Identified Relationship to Patient Clinical Status Yes amoxicillin [id number] Drug Allergy Severe N/A 11/30/2006 Yes Sulfa (Sulfonamide Antibiotics) [id number] Drug Allergy Severe N/A 11/30/2006 Yes AVALOX AVALOX Moderate N/A 11/30/2006 Yes moxifloxacin [id number] Drug Allergy Unknown "HIGH FEVER, DI 12/22/2006 Yes Penicillins [id number] Drug Allergy Unknown N/A 12/22/2006 Yes Augmentin Drug Allergy N/A N/A 04/22/2009 Yes Avelox Drug Allergy N/A N/A 04/22/2009 Yes Augmentin Drug Allergy 04/22/2009 Yes Avelox Drug Allergy 04/22/2009 Yes sulfa drug Drug Allergy 04/22/2009 Medications Problems Date Dx Coded Attending Type Code Diagnosis Diagnosed By 04/22/2009 682.9 OTHER CELLULITIS AND ABSCESS, UNSPECIFIED SITE 04/22/2009 682.9 OTHER CELLULITIS AND ABSCESS, UNSPECIFIED SITE 04/22/2009 682.9 OTHER CELLULITIS AND ABSCESS, UNSPECIFIED SITE 04/22/2009 682.9 OTHER CELLULITIS AND ABSCESS, UNSPECIFIED SITE 04/22/2009 YUKI BRAN DO 682.9 OTHER CELLULITIS AND ABSCESS, UNSPECIFIED SITE 04/22/2009 YUKI BRAN DO 682.9 OTHER CELLULITIS AND ABSCESS, UNSPECIFIED SITE 04/22/2009 GLADYS AUSTIN APRN 682.9 OTHER CELLULITIS AND ABSCESS, UNSPECIFIED SITE 04/22/2009 YUKI BRAN DO 682.9 OTHER CELLULITIS AND ABSCESS, UNSPECIFIED SITE 04/22/2009 YUKI BRAN DO 682.9 OTHER CELLULITIS AND ABSCESS, UNSPECIFIED SITE 04/22/2009 YUKI BRAN DO 682.9 OTHER CELLULITIS AND ABSCESS, UNSPECIFIED SITE 04/22/2009 BRAN DO, YUKI K 682.9 OTHER CELLULITIS AND ABSCESS, UNSPECIFIED SITE 04/22/2009 GLADYS AUSTIN APRN 682.9 OTHER CELLULITIS AND ABSCESS, UNSPECIFIED SITE 04/22/2009 BRAN DO, YUKI K 682.9 OTHER CELLULITIS AND ABSCESS, UNSPECIFIED SITE 04/22/2009 BRAN DO, YUKI K 682.9 OTHER CELLULITIS AND ABSCESS, UNSPECIFIED SITE 04/22/2009 BRAN DO, YUKI K 682.9 OTHER CELLULITIS AND ABSCESS, UNSPECIFIED SITE 04/22/2009 BRAN DO, YUKI K 682.9 OTHER CELLULITIS AND ABSCESS, UNSPECIFIED SITE 04/22/2009 BRAN DO, YUKI K 682.9 OTHER CELLULITIS AND ABSCESS, UNSPECIFIED SITE 04/22/2009 GLADYS AUSTIN APRN 682.9 OTHER CELLULITIS AND ABSCESS, UNSPECIFIED SITE 04/22/2009 YUKI BRAN DO K 682.9 OTHER CELLULITIS AND ABSCESS, UNSPECIFIED SITE 04/22/2009 GLADYS AUSTIN APRN 682.9 OTHER CELLULITIS AND ABSCESS, UNSPECIFIED SITE 04/22/2009 GLADYS AUSTIN APRN 682.9 OTHER CELLULITIS AND ABSCESS, UNSPECIFIED SITE 04/22/2009 YUKI BRAN DO K 682.9 OTHER CELLULITIS AND ABSCESS, UNSPECIFIED SITE 04/22/2009 GLADYS AUSTIN APRN 682.9 OTHER CELLULITIS AND ABSCESS, UNSPECIFIED SITE 04/22/2009 YUKI BRAN DO K 682.9 OTHER CELLULITIS AND ABSCESS, UNSPECIFIED SITE 04/22/2009 IRMA ARIAS APRN 682.9 OTHER CELLULITIS AND ABSCESS, UNSPECIFIED SITE 04/25/2009 787.01 NAUSEA WITH VOMITING 04/25/2009 787.01 NAUSEA WITH VOMITING 04/25/2009 787.01 NAUSEA WITH VOMITING 04/25/2009 787.01 NAUSEA WITH VOMITING 04/25/2009 SHANT DOELIZAA K 787.01 NAUSEA WITH VOMITING 04/25/2009 SHANT DO YUKI K 787.01 NAUSEA WITH VOMITING 04/25/2009 GLADYS AUSTIN APRN 787.01 NAUSEA WITH VOMITING 04/25/2009 ELIZA BRAN DOA K 787.01 NAUSEA WITH VOMITING 04/25/2009 BRAN DO, YUKI K 787.01 NAUSEA WITH VOMITING 04/25/2009 BRAN DO, YUKI K 787.01 NAUSEA WITH VOMITING 04/25/2009 BRAN DO, YUKI K 787.01 NAUSEA WITH VOMITING 04/25/2009 GLADYS AUSTIN APRN 787.01 NAUSEA WITH VOMITING 04/25/2009 BRAN DO, YUKI K 787.01 NAUSEA WITH VOMITING 04/25/2009 BRAN DO, YUKI K 787.01 NAUSEA WITH VOMITING 04/25/2009 BRAN DO, YUKI K 787.01 NAUSEA WITH VOMITING 04/25/2009 BRAN DO, YUKI K 787.01 NAUSEA WITH VOMITING 04/25/2009 BRAN DO, YUKI K 787.01 NAUSEA WITH VOMITING 04/25/2009 GLADYS AUSTIN APRN 787.01 NAUSEA WITH VOMITING 04/25/2009 SHANT DO, YUKI K 787.01 NAUSEA WITH VOMITING 04/25/2009 GLADYS AUSTIN APRN 787.01 NAUSEA WITH VOMITING 04/25/2009 GLADYS AUSTIN APRN 787.01 NAUSEA WITH VOMITING 04/25/2009 ELIZA BRAN DOA K 787.01 NAUSEA WITH VOMITING 04/25/2009 GLADYS AUSTIN APRN 787.01 NAUSEA WITH VOMITING 04/25/2009 BRAN DO, YUKI K 787.01 NAUSEA WITH VOMITING 04/25/2009 IRMA ARIAS APRN 787.01 NAUSEA WITH VOMITING 01/29/2011 244.9 HYPOTHYROIDISM 01/29/2011 272.4 OTHER AND UNSPECIFIED HYPERLIPIDEMIA 01/29/2011 296.90 MOOD DISORDER NOS 01/29/2011 346.90 HEADACHE, MIGRAINE 01/29/2011 V69.2 HIGH-RISK SEXUAL BEHAVIOR 01/29/2011 244.9 HYPOTHYROIDISM 01/29/2011 272.4 OTHER AND UNSPECIFIED HYPERLIPIDEMIA 01/29/2011 296.90 MOOD DISORDER NOS 01/29/2011 346.90 HEADACHE, MIGRAINE 01/29/2011 V69.2 HIGH-RISK SEXUAL BEHAVIOR 01/29/2011 244.9 HYPOTHYROIDISM 01/29/2011 272.4 OTHER AND UNSPECIFIED HYPERLIPIDEMIA 01/29/2011 296.90 MOOD DISORDER NOS 01/29/2011 346.90 HEADACHE, MIGRAINE 01/29/2011 V69.2 HIGH-RISK SEXUAL BEHAVIOR 01/29/2011 244.9 HYPOTHYROIDISM 01/29/2011 272.4 OTHER AND UNSPECIFIED HYPERLIPIDEMIA 01/29/2011 296.90 MOOD DISORDER NOS 01/29/2011 346.90 HEADACHE, MIGRAINE 01/29/2011 V69.2 HIGH-RISK SEXUAL BEHAVIOR 01/29/2011 BRAN DO, YUKI K 244.9 HYPOTHYROIDISM 01/29/2011 BRAN DO, YUKI K 272.4 OTHER AND UNSPECIFIED HYPERLIPIDEMIA 01/29/2011 BRAN DO, YUKI K 296.90 MOOD DISORDER NOS 01/29/2011 BRAN DO, YUKI K 346.90 HEADACHE, MIGRAINE 01/29/2011 BRAN DO, YUKI K V69.2 HIGH-RISK SEXUAL BEHAVIOR 01/29/2011 BRAN DO, YUKI K 244.9 HYPOTHYROIDISM 01/29/2011 BRAN DO, YUKI K 272.4 OTHER AND UNSPECIFIED HYPERLIPIDEMIA 01/29/2011 BRAN DO, UYKI K 296.90 MOOD DISORDER NOS 01/29/2011 BRAN DO, YUKI K 346.90 HEADACHE, MIGRAINE 01/29/2011 BRAN DO, YUKI K V69.2 HIGH-RISK SEXUAL BEHAVIOR 01/29/2011 GLADYS AUSTIN APRN R 244.9 HYPOTHYROIDISM 01/29/2011 GLADYS AUSTIN APRN R 272.4 OTHER AND UNSPECIFIED HYPERLIPIDEMIA 01/29/2011 GLADYS AUSTIN APRN R 296.90 MOOD DISORDER NOS 01/29/2011 GLADYS AUSTIN APRN R 346.90 HEADACHE, MIGRAINE 01/29/2011 GLADYS AUSTIN APRN R V69.2 HIGH-RISK SEXUAL BEHAVIOR 01/29/2011 BRAN DO, YUKI K 244.9 HYPOTHYROIDISM 01/29/2011 BRAN DO, YUKI K 272.4 OTHER AND UNSPECIFIED HYPERLIPIDEMIA 01/29/2011 BRAN DO, YUKI K 296.90 MOOD DISORDER NOS 01/29/2011 BRAN DO, YUKI K 346.90 HEADACHE, MIGRAINE 01/29/2011 BRAN DO, YUKI K V69.2 HIGH-RISK SEXUAL BEHAVIOR 01/29/2011 BRAN DO, YUKI K 244.9 HYPOTHYROIDISM 01/29/2011 BRAN DO, YUKI K 272.4 OTHER AND UNSPECIFIED HYPERLIPIDEMIA 01/29/2011 BRAN DO, YUKI K 296.90 MOOD DISORDER NOS 01/29/2011 BRAN DO, YUKI K 346.90 HEADACHE, MIGRAINE 01/29/2011 BRAN DO, YUKI K V69.2 HIGH-RISK SEXUAL BEHAVIOR 01/29/2011 BRAN DO, YUKI K 244.9 HYPOTHYROIDISM 01/29/2011 BRAN DO, YUKI K 272.4 OTHER AND UNSPECIFIED HYPERLIPIDEMIA 01/29/2011 BRAN DO, YUKI K 296.90 MOOD DISORDER NOS 01/29/2011 BRAN DO, YUKI K 346.90 HEADACHE, MIGRAINE 01/29/2011 BRAN DO, YUKI K V69.2 HIGH-RISK SEXUAL BEHAVIOR 01/29/2011 BRAN DO, YUKI K 244.9 HYPOTHYROIDISM 01/29/2011 BRAN DO, YUKI K 272.4 OTHER AND UNSPECIFIED HYPERLIPIDEMIA 01/29/2011 BRAN DO, YUKI K 296.90 MOOD DISORDER NOS 01/29/2011 BRAN DO, YUKI K 346.90 HEADACHE, MIGRAINE 01/29/2011 BRAN DO, YUKI K V69.2 HIGH-RISK SEXUAL BEHAVIOR 01/29/2011 AUSTINGLADYS GARZA APRN R 244.9 HYPOTHYROIDISM 01/29/2011 GLADYS AUSTIN APRN R 272.4 OTHER AND UNSPECIFIED HYPERLIPIDEMIA 01/29/2011 GLADYS AUSTIN APRN R 296.90 MOOD DISORDER NOS 01/29/2011 GLADYS AUSTIN APRN R 346.90 HEADACHE, MIGRAINE 01/29/2011 AUSTINGLADYS GARZA APRN R V69.2 HIGH-RISK SEXUAL BEHAVIOR 01/29/2011 BRAN DO, YUKI K 244.9 HYPOTHYROIDISM 01/29/2011 BRAN DO, YUKI K 272.4 OTHER AND UNSPECIFIED HYPERLIPIDEMIA 01/29/2011 BRAN DO, YUKI K 296.90 MOOD DISORDER NOS 01/29/2011 BRAN DO, YUKI K 346.90 HEADACHE, MIGRAINE 01/29/2011 BRAN DO, YUKI K V69.2 HIGH-RISK SEXUAL BEHAVIOR 01/29/2011 BRAN DO, YUKI K 244.9 HYPOTHYROIDISM 01/29/2011 BRAN DO, YUKI K 272.4 OTHER AND UNSPECIFIED HYPERLIPIDEMIA 01/29/2011 BRAN DO, YUKI K 296.90 MOOD DISORDER NOS 01/29/2011 BRAN DO, YUKI K 346.90 HEADACHE, MIGRAINE 01/29/2011 BRAN DO, YUKI K V69.2 HIGH-RISK SEXUAL BEHAVIOR 01/29/2011 BRAN DO, YUKI K 244.9 HYPOTHYROIDISM 01/29/2011 BRAN DO, YUKI K 272.4 OTHER AND UNSPECIFIED HYPERLIPIDEMIA 01/29/2011 BRAN DO, YUKI K 296.90 MOOD DISORDER NOS 01/29/2011 BRAN DO, YUKI K 346.90 HEADACHE, MIGRAINE 01/29/2011 BRAN DO, YUKI K V69.2 HIGH-RISK SEXUAL BEHAVIOR 01/29/2011 BRAN DO, YUKI K 244.9 HYPOTHYROIDISM 01/29/2011 BRAN DO, YUKI K 272.4 OTHER AND UNSPECIFIED HYPERLIPIDEMIA 01/29/2011 BRAN DO, YUKI K 296.90 MOOD DISORDER NOS 01/29/2011 BRAN DO, YUKI K 346.90 HEADACHE, MIGRAINE 01/29/2011 BRAN DO, YUKI K V69.2 HIGH-RISK SEXUAL BEHAVIOR 01/29/2011 BRAN DO, YUKI K 244.9 HYPOTHYROIDISM 01/29/2011 BRAN DO, YUKI K 272.4 OTHER AND UNSPECIFIED HYPERLIPIDEMIA 01/29/2011 BRAN DO, YUKI K 296.90 MOOD DISORDER NOS 01/29/2011 BRAN DO, YUKI K 346.90 HEADACHE, MIGRAINE 01/29/2011 BRAN DO, YUKI K V69.2 HIGH-RISK SEXUAL BEHAVIOR 01/29/2011 GLADYS AUSTIN APRN R 244.9 HYPOTHYROIDISM 01/29/2011 GLADYS AUSTIN APRN R 272.4 OTHER AND UNSPECIFIED HYPERLIPIDEMIA 01/29/2011 GLADYS AUSTIN APRN R 296.90 MOOD DISORDER NOS 01/29/2011 GLADYS AUSTIN APRN R 346.90 HEADACHE, MIGRAINE 01/29/2011 GLADYS AUSTIN APRN R V69.2 HIGH-RISK SEXUAL BEHAVIOR 01/29/2011 BRAN DO, YUKI K 244.9 HYPOTHYROIDISM 01/29/2011 BRAN DO, YUKI K 272.4 OTHER AND UNSPECIFIED HYPERLIPIDEMIA 01/29/2011 BRAN DO, YUKI K 296.90 MOOD DISORDER NOS 01/29/2011 BRAN DO, YUKI K 346.90 HEADACHE, MIGRAINE 01/29/2011 BRAN DO, YUKI K V69.2 HIGH-RISK SEXUAL BEHAVIOR 01/29/2011 GLADYS AUSTIN APRN R 244.9 HYPOTHYROIDISM 01/29/2011 GLADYS AUSTIN APRN R 272.4 OTHER AND UNSPECIFIED HYPERLIPIDEMIA 01/29/2011 GLADYS AUSTIN APRN R 296.90 MOOD DISORDER NOS 01/29/2011 GLADYS AUSTIN APRN R 346.90 HEADACHE, MIGRAINE 01/29/2011 GLADYS AUSTIN APRN R V69.2 HIGH-RISK SEXUAL BEHAVIOR 01/29/2011 GLADYS AUSTIN APRN R 244.9 HYPOTHYROIDISM 01/29/2011 NORMAN FRIENDDeniz GLADYS R 272.4 OTHER AND UNSPECIFIED HYPERLIPIDEMIA 01/29/2011 NORMAN FRIENDDeniz GLADYS R 296.90 MOOD DISORDER NOS 01/29/2011 NORMAN FRIENDN, GLADYS R 346.90 HEADACHE, MIGRAINE 01/29/2011 NORMAN FRIENDDeniz GLADYS R V69.2 HIGH-RISK SEXUAL BEHAVIOR 01/29/2011 BRAN DO, YUKI K 244.9 HYPOTHYROIDISM 01/29/2011 BRAN DO, YUKI K 272.4 OTHER AND UNSPECIFIED HYPERLIPIDEMIA 01/29/2011 BRAN DO, YUKI K 296.90 MOOD DISORDER NOS 01/29/2011 BRAN DO, YUKI K 346.90 HEADACHE, MIGRAINE 01/29/2011 BRAN DO, YUKI K V69.2 HIGH-RISK SEXUAL BEHAVIOR 01/29/2011 NORMAN FRIENDGLADYS Guaman R 244.9 HYPOTHYROIDISM 01/29/2011 NORMAN FRIENDGLADYS Guaman R 272.4 OTHER AND UNSPECIFIED HYPERLIPIDEMIA 01/29/2011 NORMAN FRIENDGLADYS Guaman R 296.90 MOOD DISORDER NOS 01/29/2011 NORMAN FRIENDDeniz GLADYS R 346.90 HEADACHE, MIGRAINE 01/29/2011 NORMAN FRIENDDeniz GLADYS R V69.2 HIGH-RISK SEXUAL BEHAVIOR 01/29/2011 BRAN DO, YUKI K 244.9 HYPOTHYROIDISM 01/29/2011 BRAN DO, YUKI K 272.4 OTHER AND UNSPECIFIED HYPERLIPIDEMIA 01/29/2011 BRAN DO, YUKI K 296.90 MOOD DISORDER NOS 01/29/2011 BRAN DO, YUKI K 346.90 HEADACHE, MIGRAINE 01/29/2011 BRAN DO, YUKI K V69.2 HIGH-RISK SEXUAL BEHAVIOR 01/29/2011 HELLCHARLIE MAX IRMA E 244.9 HYPOTHYROIDISM 01/29/2011 HELLCHARLIE MSWS, IRMA E 272.4 OTHER AND UNSPECIFIED HYPERLIPIDEMIA 01/29/2011 HELLCHARLIE MSWS, IRMA E 296.90 MOOD DISORDER NOS 01/29/2011 HELLWIG MSWS, IRMA E 346.90 HEADACHE, MIGRAINE 01/29/2011 HELLWIG MSWS, IRMA E V69.2 HIGH-RISK SEXUAL BEHAVIOR 04/28/2012 333.94 RESTLESS LEGS SYNDROME (RLS) 04/28/2012 726.2 OTHER AFFECTIONS OF SHOULDER REGION NOT ELSEWHERE CLASSIFIED 04/28/2012 333.94 RESTLESS LEGS SYNDROME (RLS) 04/28/2012 726.2 OTHER AFFECTIONS OF SHOULDER REGION NOT ELSEWHERE CLASSIFIED 04/28/2012 333.94 RESTLESS LEGS SYNDROME (RLS) 04/28/2012 726.2 OTHER AFFECTIONS OF SHOULDER REGION NOT ELSEWHERE CLASSIFIED 04/28/2012 333.94 RESTLESS LEGS SYNDROME (RLS) 04/28/2012 726.2 OTHER AFFECTIONS OF SHOULDER REGION NOT ELSEWHERE CLASSIFIED 04/28/2012 BRAN DO, YUKI K 333.94 RESTLESS LEGS SYNDROME (RLS) 04/28/2012 BRAN DO, YUKI K 726.2 OTHER AFFECTIONS OF SHOULDER REGION NOT ELSEWHERE CLASSIFIED 04/28/2012 BRAN DO, YUKI K 333.94 RESTLESS LEGS SYNDROME (RLS) 04/28/2012 BRAN DO, YUKI K 726.2 OTHER AFFECTIONS OF SHOULDER REGION NOT ELSEWHERE CLASSIFIED 04/28/2012 GLADYS AUSTIN APRN 333.94 RESTLESS LEGS SYNDROME (RLS) 04/28/2012 GLADYS AUSTIN APRN 726.2 OTHER AFFECTIONS OF SHOULDER REGION NOT ELSEWHERE CLASSIFIED 04/28/2012 BRAN DO, YUKI K 333.94 RESTLESS LEGS SYNDROME (RLS) 04/28/2012 BRAN DO, YUKI K 726.2 OTHER AFFECTIONS OF SHOULDER REGION NOT ELSEWHERE CLASSIFIED 04/28/2012 BRAN DO, YUKI K 333.94 RESTLESS LEGS SYNDROME (RLS) 04/28/2012 BRAN DO, YUKI K 726.2 OTHER AFFECTIONS OF SHOULDER REGION NOT ELSEWHERE CLASSIFIED 04/28/2012 BRAN DO, YUKI K 333.94 RESTLESS LEGS SYNDROME (RLS) 04/28/2012 BRAN DO, YUKI K 726.2 OTHER AFFECTIONS OF SHOULDER REGION NOT ELSEWHERE CLASSIFIED 04/28/2012 BRAN DO, YUKI K 333.94 RESTLESS LEGS SYNDROME (RLS) 04/28/2012 BRAN DO, YUKI K 726.2 OTHER AFFECTIONS OF SHOULDER REGION NOT ELSEWHERE CLASSIFIED 04/28/2012 GLADYS AUSTIN APRN 333.94 RESTLESS LEGS SYNDROME (RLS) 04/28/2012 GLADYS AUSTIN APRN 726.2 OTHER AFFECTIONS OF SHOULDER REGION NOT ELSEWHERE CLASSIFIED 04/28/2012 BRAN DO, YUKI K 333.94 RESTLESS LEGS SYNDROME (RLS) 04/28/2012 BRAN DO, YUKI K 726.2 OTHER AFFECTIONS OF SHOULDER REGION NOT ELSEWHERE CLASSIFIED 04/28/2012 BRAN DO, YUKI K 333.94 RESTLESS LEGS SYNDROME (RLS) 04/28/2012 BRAN DO, YUKI K 726.2 OTHER AFFECTIONS OF SHOULDER REGION NOT ELSEWHERE CLASSIFIED 04/28/2012 BRAN DO, YUKI K 333.94 RESTLESS LEGS SYNDROME (RLS) 04/28/2012 BRAN DO, YUKI K 726.2 OTHER AFFECTIONS OF SHOULDER REGION NOT ELSEWHERE CLASSIFIED 04/28/2012 BRAN DO, YUKI K 333.94 RESTLESS LEGS SYNDROME (RLS) 04/28/2012 BRAN DO, YUKI K 726.2 OTHER AFFECTIONS OF SHOULDER REGION NOT ELSEWHERE CLASSIFIED 04/28/2012 BRAN DO, YUKI K 333.94 RESTLESS LEGS SYNDROME (RLS) 04/28/2012 BRAN DO, YUKI K 726.2 OTHER AFFECTIONS OF SHOULDER REGION NOT ELSEWHERE CLASSIFIED 04/28/2012 GLADYS AUSTIN APRN 333.94 RESTLESS LEGS SYNDROME (RLS) 04/28/2012 GLADYS AUSTIN APRN 726.2 OTHER AFFECTIONS OF SHOULDER REGION NOT ELSEWHERE CLASSIFIED 04/28/2012 BRAN DO, YUKI K 333.94 RESTLESS LEGS SYNDROME (RLS) 04/28/2012 BRAN DO, YUKI K 726.2 OTHER AFFECTIONS OF SHOULDER REGION NOT ELSEWHERE CLASSIFIED 04/28/2012 GLADYS AUSTIN APRN 333.94 RESTLESS LEGS SYNDROME (RLS) 04/28/2012 GLADYS AUSTIN APRN R 726.2 OTHER AFFECTIONS OF SHOULDER REGION NOT ELSEWHERE CLASSIFIED 04/28/2012 GLADYS AUSTIN APRN 333.94 RESTLESS LEGS SYNDROME (RLS) 04/28/2012 GLADYS AUSTIN APRN R 726.2 OTHER AFFECTIONS OF SHOULDER REGION NOT ELSEWHERE CLASSIFIED 04/28/2012 BRAN DO YUKI K 333.94 RESTLESS LEGS SYNDROME (RLS) 04/28/2012 BRAN DO, YUKI K 726.2 OTHER AFFECTIONS OF SHOULDER REGION NOT ELSEWHERE CLASSIFIED 04/28/2012 GLADYS AUSTIN APRN 333.94 RESTLESS LEGS SYNDROME (RLS) 04/28/2012 GLADYS AUSTIN APRN R 726.2 OTHER AFFECTIONS OF SHOULDER REGION NOT ELSEWHERE CLASSIFIED 04/28/2012 BRAN DO YUKI K 333.94 RESTLESS LEGS SYNDROME (RLS) 04/28/2012 BRAN DO, YUKI K 726.2 OTHER AFFECTIONS OF SHOULDER REGION NOT ELSEWHERE CLASSIFIED 04/28/2012 IRMA ARIAS APRN 333.94 RESTLESS LEGS SYNDROME (RLS) 04/28/2012 IRMA ARIAS APRN E 726.2 OTHER AFFECTIONS OF SHOULDER REGION NOT ELSEWHERE CLASSIFIED 08/05/2012 724.2 BACK PAIN, LOWER 08/05/2012 724.2 BACK PAIN, LOWER 08/05/2012 724.2 BACK PAIN, LOWER 08/05/2012 BRAN DO, YUKI K 724.2 BACK PAIN, LOWER 08/05/2012 BRAN DO, YUKI K 724.2 BACK PAIN, LOWER 08/05/2012 GLADYS AUSTIN APRN 724.2 BACK PAIN, LOWER 08/05/2012 BRAN DO, YUKI K 724.2 BACK PAIN, LOWER 08/05/2012 BRAN DO, YUKI K 724.2 BACK PAIN, LOWER 08/05/2012 BRAN DO, YUKI K 724.2 BACK PAIN, LOWER 08/05/2012 BRAN DO, YUKI K 724.2 BACK PAIN, LOWER 08/05/2012 AUSTINGLADYS GARZA APRN R 724.2 BACK PAIN, LOWER 08/05/2012 BRAN DO, YUKI K 724.2 BACK PAIN, LOWER 08/05/2012 BRAN DO, YUKI K 724.2 BACK PAIN, LOWER 08/05/2012 BRAN DO, YUKI K 724.2 BACK PAIN, LOWER 08/05/2012 BRAN DO, YUKI K 724.2 BACK PAIN, LOWER 08/05/2012 BRAN DO, YUKI K 724.2 BACK PAIN, LOWER 08/05/2012 GLADYS AUSTIN APRN 724.2 BACK PAIN, LOWER 08/05/2012 BRAN DO, YUKI K 724.2 BACK PAIN, LOWER 08/05/2012 GLADYS AUSTIN APRN 724.2 BACK PAIN, LOWER 08/05/2012 GLADYS AUSTIN APRN 724.2 BACK PAIN, LOWER 08/05/2012 BRAN DO, YUKI K 724.2 BACK PAIN, LOWER 08/05/2012 GLADYS AUSTIN APRN 724.2 BACK PAIN, LOWER 08/05/2012 BRAN DO, YUKI K 724.2 BACK PAIN, LOWER 08/05/2012 IRMA ARIAS APRN 724.2 BACK PAIN, LOWER 10/26/2012 599.0 URINARY TRACT INFECTION 10/26/2012 599.0 URINARY TRACT INFECTION 10/26/2012 BRAN DO, YUKI K 599.0 URINARY TRACT INFECTION 10/26/2012 BRAN DO, YUKI K 599.0 URINARY TRACT INFECTION 10/26/2012 GLADYS AUSTIN APRN 599.0 URINARY TRACT INFECTION 10/26/2012 BRAN DO, YUKI K 599.0 URINARY TRACT INFECTION 10/26/2012 BRAN DO, YUKI K 599.0 URINARY TRACT INFECTION 10/26/2012 BRAN DO, YUKI K 599.0 URINARY TRACT INFECTION 10/26/2012 BRAN DO, YUKI K 599.0 URINARY TRACT INFECTION 10/26/2012 GLADYS AUSTIN APRN 599.0 URINARY TRACT INFECTION 10/26/2012 BRAN DO, YUKI K 599.0 URINARY TRACT INFECTION 10/26/2012 BRAN DO, YUKI K 599.0 URINARY TRACT INFECTION 10/26/2012 BRAN DO, YUKI K 599.0 URINARY TRACT INFECTION 10/26/2012 BRAN DO, YUKI K 599.0 URINARY TRACT INFECTION 10/26/2012 BRAN DO, YUKI K 599.0 URINARY TRACT INFECTION 10/26/2012 GLADYS AUSTIN APRN 599.0 URINARY TRACT INFECTION 10/26/2012 BRAN DO, YUKI K 599.0 URINARY TRACT INFECTION 10/26/2012 GLADYS AUSTIN APRN 599.0 URINARY TRACT INFECTION 10/26/2012 GLADYS AUSTIN APRN 599.0 URINARY TRACT INFECTION 10/26/2012 BRAN DO, YUKI K 599.0 URINARY TRACT INFECTION 10/26/2012 GLADYS AUSTIN APRN 599.0 URINARY TRACT INFECTION 10/26/2012 BRAN DO, YUKI K 599.0 URINARY TRACT INFECTION 10/26/2012 IRMA ARIAS APRN 599.0 URINARY TRACT INFECTION 01/11/2013 BRAN DO, YKUI K 461.9 SINUSITIS ACUTE 01/11/2013 BRAN DO, YUKI K 461.9 SINUSITIS ACUTE 01/11/2013 GLADYS AUSTIN APRN 461.9 SINUSITIS ACUTE 01/11/2013 BRAN DO, YUKI K 461.9 SINUSITIS ACUTE 01/11/2013 BRAN DO, YUKI K 461.9 SINUSITIS ACUTE 01/11/2013 BRAN DO, YUKI K 461.9 SINUSITIS ACUTE 01/11/2013 BRAN DO, YUKI K 461.9 SINUSITIS ACUTE 01/11/2013 AUSTINGLADYS GARZA APRN R 461.9 SINUSITIS ACUTE 01/11/2013 BRAN DO, YUKI K 461.9 SINUSITIS ACUTE 01/11/2013 BRAN DO, YUKI K 461.9 SINUSITIS ACUTE 01/11/2013 BRAN DO, YUKI K 461.9 SINUSITIS ACUTE 01/11/2013 BRAN DO, YUKI K 461.9 SINUSITIS ACUTE 01/11/2013 BRAN DO, YUKI K 461.9 SINUSITIS ACUTE 01/11/2013 GLADYS AUSTIN APRN R 461.9 SINUSITIS ACUTE 01/11/2013 BRAN DO, YKUI K 461.9 SINUSITIS ACUTE 01/11/2013 GLADYS AUSTIN APRN R 461.9 SINUSITIS ACUTE 01/11/2013 AUSTINGLADYS GARZA APRN R 461.9 SINUSITIS ACUTE 01/11/2013 BRAN DO, YUKI K 461.9 SINUSITIS ACUTE 01/11/2013 AUSTINGLADYS GARZA APRN R 461.9 SINUSITIS ACUTE 01/11/2013 BRAN DO, YUKI K 461.9 SINUSITIS ACUTE 01/11/2013 IRMA ARIAS APRN 461.9 SINUSITIS ACUTE 02/20/2013 GLADYS AUSTIN APRN 719.45 PAIN- HIP 02/20/2013 BRAN DO, YUKI K 719.45 PAIN- HIP 02/20/2013 BRAN DO, YUKI K 719.45 PAIN- HIP 02/20/2013 BRAN DO, YUKI K 719.45 PAIN- HIP 02/20/2013 BRAN DO, YUKI K 719.45 PAIN- HIP 02/20/2013 GLADYS AUSTIN APRN 719.45 PAIN- HIP 02/20/2013 BRAN DO, YUKI K 719.45 PAIN- HIP 02/20/2013 BRAN DO, YUKI K 719.45 PAIN- HIP 02/20/2013 BRAN DO, YUKI K 719.45 PAIN- HIP 02/20/2013 BRAN DO, YUKI K 719.45 PAIN- HIP 02/20/2013 BRAN DO, YUKI K 719.45 PAIN- HIP 02/20/2013 GLADYS A[place] APRN 719.45 PAIN- HIP 02/20/2013 BRAN DO, YUKI K 719.45 PAIN- HIP 02/20/2013 GLADYS [place] APRN 719.45 PAIN- HIP 02/20/2013 GLADYS A[place]IN APRN 719.45 PAIN- HIP 02/20/2013 BRAN DO, YUKI K 719.45 PAIN- HIP 02/20/2013 GLADYS [place] APRN 719.45 PAIN- HIP 02/20/2013 BRAN DO, YUKI K 719.45 PAIN- HIP 02/20/2013 IRMA ARIAS APRN 719.45 PAIN- HIP 04/07/2013 BRAN DO, YUKI K 787.91 DIARRHEA 04/07/2013 BRAN DO, YUKI K 789.07 ABDOMINAL PAIN GENERALIZED 04/07/2013 BRAN DO, YUKI K 787.91 DIARRHEA 04/07/2013 BRAN DO, YUKI K 789.07 ABDOMINAL PAIN GENERALIZED 04/07/2013 BRAN DO, YUKI K 787.91 DIARRHEA 04/07/2013 BRAN DO, YUKI K 789.07 ABDOMINAL PAIN GENERALIZED 04/07/2013 GLADYS AUSTIN APRN 787.91 DIARRHEA 04/07/2013 GLADYS AUSTIN APRN 789.07 ABDOMINAL PAIN GENERALIZED 04/07/2013 BRAN DO, YUKI K 787.91 DIARRHEA 04/07/2013 BRAN DO, YUKI K 789.07 ABDOMINAL PAIN GENERALIZED 04/07/2013 BRAN DO, YUKI K 787.91 DIARRHEA 04/07/2013 BRAN DO, YUKI K 789.07 ABDOMINAL PAIN GENERALIZED 04/07/2013 BRAN DO, YUKI K 787.91 DIARRHEA 04/07/2013 BRAN DO, YUKI K 789.07 ABDOMINAL PAIN GENERALIZED 04/07/2013 BRAN DO, YUKI K 787.91 DIARRHEA 04/07/2013 BRAN DO, YUKI K 789.07 ABDOMINAL PAIN GENERALIZED 04/07/2013 BRAN DO, YUKI K 787.91 DIARRHEA 04/07/2013 BRAN DO, YUKI K 789.07 ABDOMINAL PAIN GENERALIZED 04/07/2013 [place] MSWSGLADYS Guaman R 787.91 DIARRHEA 04/07/2013 [place] MSWS, GLADYS R 789.07 ABDOMINAL PAIN GENERALIZED 04/07/2013 BRAN DO, YUKI K 787.91 DIARRHEA 04/07/2013 BRAN DO, YUKI K 789.07 ABDOMINAL PAIN GENERALIZED 04/07/2013 [place] MSWSGLADYS Guaman R 787.91 DIARRHEA 04/07/2013 [place] MSWS, GLADYS R 789.07 ABDOMINAL PAIN GENERALIZED 04/07/2013 [place] MSWS, GLADYS R 787.91 DIARRHEA 04/07/2013 [place] MSWSGLADYS R 789.07 ABDOMINAL PAIN GENERALIZED 04/07/2013 BRAN DO, YUKI K 787.91 DIARRHEA 04/07/2013 BRAN DO, YUKI K 789.07 ABDOMINAL PAIN GENERALIZED 04/07/2013 [place] MSWSGLADYS Guaman R 787.91 DIARRHEA 04/07/2013 [place] MSWSGLADYS Guaman R 789.07 ABDOMINAL PAIN GENERALIZED 04/07/2013 BRAN DO, YUKI K 787.91 DIARRHEA 04/07/2013 BRAN DO, YUKI K 789.07 ABDOMINAL PAIN GENERALIZED 04/07/2013 HELLWIG IRMA MAX E 787.91 DIARRHEA 04/07/2013 HELLWIG IRMA MAX E 789.07 ABDOMINAL PAIN GENERALIZED 04/10/2013 BRAN DO, YUKI K 564.00 CONSTIPATION 04/10/2013 BRAN DO, YUKI K 564.00 CONSTIPATION 04/10/2013 GLADYS AUSTIN APRN R 564.00 CONSTIPATION 04/10/2013 BRAN DO, YUKI K 564.00 CONSTIPATION 04/10/2013 BRAN DO, YUKI K 564.00 CONSTIPATION 04/10/2013 BRAN DO, YUKI K 564.00 CONSTIPATION 04/10/2013 BRAN DO, YUKI K 564.00 CONSTIPATION 04/10/2013 BRAN DO, YUKI K 564.00 CONSTIPATION 04/10/2013 GLADYS AUSTIN APRN 564.00 CONSTIPATION 04/10/2013 BRAN DO, YUKI K 564.00 CONSTIPATION 04/10/2013 GLADYS AUSTIN APRN R 564.00 CONSTIPATION 04/10/2013 NORMAN WINTER GLADYS Matthews 564.00 CONSTIPATION 04/10/2013 BRAN DO, YUKI K 564.00 CONSTIPATION 04/10/2013 [place] MSWS, GLADYS R 564.00 CONSTIPATION 04/10/2013 BRAN DO, YUKI K 564.00 CONSTIPATION 04/10/2013 IRMA ARIAS APRN 564.00 CONSTIPATION 04/20/2013 BRAN DO, YUKI K 724.4 BACK PAIN WITH RADIATION 04/20/2013 [place] MSWS, GLADYS R 724.4 BACK PAIN WITH RADIATION 04/20/2013 BRAN DO, YUKI K 724.4 BACK PAIN WITH RADIATION 04/20/2013 BRAN DO, YUKI K 724.4 BACK PAIN WITH RADIATION 04/20/2013 BRAN DO, YUKI K 724.4 BACK PAIN WITH RADIATION 04/20/2013 BRAN DO, YUKI K 724.4 BACK PAIN WITH RADIATION 04/20/2013 BRAN DO, YUKI K 724.4 BACK PAIN WITH RADIATION 04/20/2013 [place] MSWS, GLADYS R 724.4 BACK PAIN WITH RADIATION 04/20/2013 BRAN DO, YUKI K 724.4 BACK PAIN WITH RADIATION 04/20/2013 [place] MSWS, GLADYS R 724.4 BACK PAIN WITH RADIATION 04/20/2013 [place] MSWS, GLADYS R 724.4 BACK PAIN WITH RADIATION 04/20/2013 BRAN DO, YUKI K 724.4 BACK PAIN WITH RADIATION 04/20/2013 [place] MSWS, GLADYS R 724.4 BACK PAIN WITH RADIATION 04/20/2013 BRAN DO, YUKI K 724.4 BACK PAIN WITH RADIATION 04/20/2013 IRMA ARIAS APRN 724.4 BACK PAIN WITH RADIATION 10/23/2013 BRAN DO, YUKI K 530.81 GERD 10/23/2013 BRAN DO, YUKI K 530.81 GERD 10/23/2013 BRAN DO, YUKI K 530.81 GERD 10/23/2013 [place] MSWS, GLADYS R 530.81 GERD 10/23/2013 BRAN DO, YUKI K 530.81 GERD 10/23/2013 [place] MSWS, GLADYS R 530.81 GERD 10/23/2013 [place] MSWS, GLADYS R 530.81 GERD 10/23/2013 BRAN DO, YUKI K 530.81 GERD 10/23/2013 [place] MSWS, GLADYS R 530.81 GERD 10/23/2013 BRAN DO, YUKI K 530.81 GERD 10/23/2013 IRMA ARIAS APRN 530.81 GERD 11/07/2013 BRAN DO, YUKI K 682.0 ABCESS, FACE 11/07/2013 BRAN DO, YUKI K 682.0 ABCESS, FACE 11/07/2013 [place] MSWS, GLADYS R 682.0 ABCESS, FACE 11/07/2013 BRAN DO, YUKI K 682.0 ABCESS, FACE 11/07/2013 [place] MSWS, GLADYS R 682.0 ABCESS, FACE 11/07/2013 [place] MSWS, GLADYS R 682.0 ABCESS, FACE 11/07/2013 BRAN DO, YUKI K 682.0 ABCESS, FACE 11/07/2013 [place] MSWS, GLADYS R 682.0 ABCESS, FACE 11/07/2013 BRAN DO, YUKI K 682.0 ABCESS, FACE 11/07/2013 IRMA ARIAS APRN 682.0 ABCESS, FACE 12/18/2013 BRAN DO, YUKI K 785.1 PALPITATIONS 12/18/2013 BRAN DO, YUKI K 786.50 CHEST PAIN 12/18/2013 [place] MSWS, GLADYS R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 SMEAR 04/30/2014 76239 THERAPUTIC INJ SQ/IM 07/05/2014 J2930 SOLUMEDROL INJ 42846 INFLUENZA A & B (IN-HOUSE) 07/05/2014 56536 STREP A (IN-HOUSE) 07/05/2014 01056 OXIMETRY 2014 86.04 OTHER SKIN SUBQ I D 11/24/2014 Encounters ACCT No. Visit Date/Time Discharge Status Pt. Type Provider Facility Loc./Unit Complaint [id number] 07/05/2014 14:42:00 07/05/2014 23: 59:59 CLS Outpatient YUKI BRAN DO [id number] 07/05/2014 14:42:00 07/05/2014 23: 59:59 CLS Outpatient IRMA ARIAS APRN [id number] 05/10/2014 13:42:00 05/10/2014 23: 59:59 CLS Outpatient GLADYS AUSTIN APRN [id number] 04/30/2014 14:23:00 04/30/2014 23: 59:59 CLS Outpatient BRAN DOELIZAQuinten Joyner [id number] 04/03/2014 10:53:00 04/03/2014 23: 59:59 CLS Outpatient NORMAN MAXGLADYS [id number] 03/20/2014 09:56:00 03/20/2014 23: 59:59 CLS Outpatient BRAN DO YUKI Joyner [id number] 03/20/2014 09:56:00 03/20/2014 23: 59:59 CLS Outpatient NORMAN MAXGLADYS [id number] 12/18/2013 12:45:00 12/18/2013 23: 59:59 CLS Outpatient BRAN DO YUKI Joyner [id number] 12/18/2013 12:45:00 12/18/2013 23: 59:59 CLS Outpatient NORMAN MAXGLADYS [id number] 11/07/2013 11:06:00 11/07/2013 23: 59:59 CLS Outpatient BRAN DOELIZAQuinten Joyner [id number] 10/23/2013 11:03:00 10/23/2013 23: 59:59 CLS Outpatient BRAN DOELIZAQuinten Joyner [id number] 09/25/2013 09:57:00 09/25/2013 23: 59:59 CLS Outpatient BRAN DOELIZAQuinten Joyner [id number] 08/28/2013 09:30:00 08/28/2013 23: 59:59 CLS Outpatient BRAN DOYUKI Ar [id number] 05/22/2013 14:18:00 05/22/2013 23: 59:59 CLS Outpatient NORMAN MAXGLADYS [id number] 04/28/2013 10:05:00 04/28/2013 23: 59:59 CLS Outpatient BRAN DOELIZAQuinten Joyner [id number] 04/10/2013 13:50:00 04/10/2013 23: 59:59 CLS Outpatient BRAN DO YUKI Joyner [id number] 04/07/2013 13:59:00 04/07/2013 23: 59:59 CLS Outpatient BRAN DOELIZAQuinten Joyner [id number] 03/28/2013 14:28:00 03/28/2013 23: 59:59 CLS Outpatient BRAN DO YUKI Joyner [id number] 02/20/2013 11:10:00 02/20/2013 23: 59:59 CLS Outpatient GLADYS AUSTIN APRN [id number] 02/06/2013 12:40:00 02/06/2013 23: 59:59 CLS Outpatient YUKI BRAN DO [id number] 01/11/2013 13:52:00 01/11/2013 23: 59:59 CLS Outpatient YUKI BRAN DO [id number] 04/28/2012 14:07:00 04/28/2012 23: 59:59 CLS Outpatient [id number] 12/05/2012 09:54:00 Document Registration [id number] 11/21/2012 11:53:00 Document Registration [id number] 08/18/2012 14:45:00 Document Registration
--- OUTSIDE RECORDS SUMMARY | 2016-08-17 00:21 | XMS REPORT ---
Author Author JAI CORTEZ Organization [facility] Address [address] [place] [address] Care Team Providers Care Nut Sorter Operator Name Role Phone JAI CORTEZ Unavailable PROBLEMS Type Condition ICD9-CM Code UQU01-RT Code Onset Dates Condition Status SNOMED Code Problem GERD (gastroesophageal reflux disease) K21.9 Active 648941033 Problem History of seizures Z87.898 Active 217219718 Problem Hypothyroidism E03.9 Active 74003501 Problem History of MRSA infection Z86.14 Active 754813325 Problem Family history of diabetes mellitus Z83.3 Active 546490054 Problem Hx of migraines Z86.69 Active 358550832 Problem HTN (hypertension) I10 Active 03785275 Problem Irritable bowel syndrome with diarrhea K58.0 Active 030601239 Problem Lumbago with sciatica, right side M54.41 Active 363746588 Problem Anxiety state, unspecified F41.1 Active 353300459 Problem Depression, unspecified depression type F32.9 Active 64565998 Problem Lumbago with sciatica, left side M54.42 Active 189633178 Problem Schizoaffective disorder, unspecified type F25.9 Active 80527172 ALLERGIES Unknown Allergies SOCIAL HISTORY No smoking Hx information available PLAN OF CARE VITAL SIGNS MEDICATIONS Medication Instructions Dosage Frequency Start Date End Date Duration Status Ventolin HFA 108 (90 Base) MCG/ACT Inhalation every 4 hrs 2 puffs as needed 4h Active RESULTS No Results PROCEDURES No Known procedures IMMUNIZATIONS No Known Immunizations
--- OUTSIDE RECORDS SUMMARY | 2016-08-17 00:21 | XMS REPORT ---
Author Author GLADYS AUSTIN [facility] eClinicalWorks Address Unknown Phone Unavailable Care Team Providers Care Dielectric Testing Machine Operator Name Role Phone GLADYS AUSTIN CP Unavailable Allergies, Adverse Reactions, Alerts Substance Reaction Event Type SulfADIAZINE rash Drug Allergy Depakote nausea Drug Allergy Avelox rash Drug Allergy Augmentin rash Drug Allergy Problems Problem Type Condition ICD-9 Code Onset Dates Condition Status Assessment Urinary tract infection, site not specified 599.0 Active Problem Unspecified constipation 564.00 Active Problem Cellulitis [...] pelvic region and thigh 719.45 Active Medications Medication Code System Code Instructions Start Date End Date Status Dosage Fluoxetine [facility] [address]-69 20 MG Orally Once a day 1 tab qd x 2 wk then 2 tab qd October 03, 2014 1-2 capsule in the morning HydrOXYzine HCl [facility] [address]-42 25 MG Orally every 8 hrs October 03, 2014 1 tablet as needed dicyclomine NDC 0 20 mg Mar 20, 2014 1 tablet by Oral route 3 times per day PRN levothyroxine NDC 0 125 mcg Apr 03, 2014 1 Tablet by Oral route 1 time per day Tramadol HCl [facility] [address]-61 50 MG Orally 3 times a day Nov 20, 2014 1 tablet as needed Rocephin [facility] [address]-47 1 GM Injection Once a day Dec 10, 2014Dec as directed Topamax [facility] [address]-78 100 MG Orally Twice a day October 03, 2014 1 tablet Albuterol Sulfate [facility] [address]-62 90 mcg/actuation Mar 20, 2014 inhale 2 puff by Inhalation route as needed every 4-6 hours PRN SOB, wheezing cough Tramadol HCl [facility] [address]-04 50 MG Orally 3 times a day October 22, 2014 1 tablet as needed Gabapentin [facility] [address]-83 800 MG Orally Three times a day October 03, 2014 1 tablet Trazodone HCl [facility] [address]-86 100 MG Orally Once a day October 03, 2014 2 tablet at bedtime Clonazepam [facility] [address]-42 0.5 mg Dec 18, 2013 0.5-1 tablet by Oral route 2 times per day Omeprazole [facility] [address]-47 40 mg May 10, 2014 take 1 capsule by Oral route before a meal 2 times per day Imitrex [facility] [address]-52 100 MG June 14, 2014 1 tablet by Oral route 1 time per day and repeat once more after 2 hours if headache recurs PRN Carafate [facility] [address]-33 1 gram May 10, 2014 1 tablet by Oral route 4 times per day Procedures Procedure Coding System Code Date URINALYSIS, AUTO, W/O SCOPE CPT-4 47710 Dec 10, 2014 No Charge CPT-4 10615 Dec 10, 2014 URINE CULTURE/COLONY COUNT CPT-4 80854 Dec 10, 2014 ROCEPHIN 1 GM (IM) CPT-4 J0696 Dec 10, 2014 Office Visit, Est Pt., Level 3 CPT-4 36116 Dec 10, 2014 THER/PROPH/DIAG INJ, SC/IM CPT-4 92283 Dec 10, 2014 Vital Signs Date/Time: Dec 10, 2014 Temperature 98.3 F Weight 189 lbs Height 64 in BMI 32.44 Index Blood Pressure Diastolic 70 mmHg Blood Pressure Systolic 110 mmHg Cardiac Monitoring Heart Rate 84 bpm Results Name Result Date Reference Range Unit Abnormality Flag UA LONG DIP (IN HOUSE) CULTURE, URINE ----Urine Culture, Routine Final report [id number] Summary Purpose eClinicalWorks Submission
--- OUTSIDE RECORDS SUMMARY | 2016-08-17 00:21 | XMS REPORT ---
Author Author BUTCH GARZA Organization eClinicalWorks Address Unknown Phone Unavailable Care Team Providers Care Joist Setter Name Role Phone BUTCH GARZA CP Unavailable [...] patient &/family, 30 minutes, established patient CPT-4 25815 October 30, 2015 Results No Known Results Summary Purpose eClinicalWorks Submission
--- OUTSIDE RECORDS SUMMARY | 2016-08-17 00:21 | XMS REPORT ---
Author LIZBETH Aguirre [facility] eClinicalWorks Address Unknown Phone Unavailable Care Team Providers Care Special Inspector Name Role Phone LIZBETH COFFMAN CP Unavailable Allergies No Known Allergies Problems [...] Instructions Start Date End Date Status Dosage HydrOXYzine HCl [facility] [address]-03 50 MG Orally every 6 hrs 1 tablet as needed Omeprazole [facility] [address]-23 40 MG Orally Once a day [address] [facility] [address]-45 0.5 MG Orally Twice a day as needed [address] [facility] [address]-11 0.25 MG Orally Once a day ay HS as needed 1 tablet on the tongue and allow to dissolve Topiramate [facility] [address]-67 100 MG Orally Twice a day 1.[address] [facility] [address]-41 108 (90 Base) MCG/ACT Inhalation every 4 hrs 2 puffs as needed Trazodone HCl [facility] [address]-57 50 mg Orally Once a day 1.5 tablet at bedtime as needed Levaquin [facility] [address]-36 750 MG Orally Once a day Feb 27, 2016 Mar 01, [address] [facility] [address]-96 (2.5 MG/3ML) 0.083% Inhalation every 4 hours as needed Feb 26, [address] [facility] [address]-80 40 mg Orally Once a day October 22, 2015 1 capsule in the morning Levothyroxine Sodium [facility] [address]-47 125 mcg Orally Once a day [address] [facility] [address]-82 20 mg Orally Once a day Feb 27, 2016 Mar 02, 2016 2 tablets Lisinopril-Hydrochlorothiazide [facility] [address]-21 20-12.5 MG Orally Once a day [address] [facility] [address]-03 800 MG Orally Three times a day [address] [facility] [address]-20 800 MG Orally Three times a day [address] [facility] [address]-09 50 mg Orally every [address] [facility] [address]-57 0.5 MG Orally Once a day 1 tablet every lynda for 10 days and then 2 tabs thereafter Results No Known Results Summary Purpose eClinicalWorks Submission
--- OUTSIDE RECORDS SUMMARY | 2016-08-17 00:22 | XMS REPORT ---
Author Author GLADYS AUSTIN Organization eClinicalWorks Address Unknown Phone Unavailable Care Team Providers Care Foreign Exchange Trader Name Role Phone GLADYS AUSTIN CP Unavailable [...] neuritis or radiculitis, unspecified 724.4 Active Medications No Known Medications Vital Signs Date/Time: Feb 06, 2015 Blood Pressure Diastolic 68 mmHg Blood Pressure Systolic 110 mmHg Height 64 in Results No Known Results Summary Purpose eClinicalWorks Submission
--- OUTSIDE RECORDS SUMMARY | 2016-08-17 00:22 | XMS REPORT ---
Author Author AYLEEN ROBERSON [facility] eClinicalWorks Address Unknown Phone Unavailable Care Team Providers Care Blacksmith Hammer Operator Name Role Phone AYLEEN ROBERSON CP Unavailable Allergies No Known Allergies Problems Problem Type Condition ICD-9 Code Onset Dates Condition Status Assessment Dental examination V72.2 Active Problem Unspecified constipation 564.00 Active Problem Cellulitis and abscess of face 682.0 Active Problem Abdominal pain, generalized 789.07 Active Problem Diarrhea 787.91 Active Problem Acute bronchitis 466.0 Active Problem Acute nasopharyngitis (common cold) 460 Active Problem Palpitations 785.1 Active Problem Lumbago 724.2 Active Problem Chest pain, unspecified 786.50 Active Problem Chronic back pain 724.5 Active Problem Acute sinusitis, unspecified 461.9 Active Problem Degenerative disc disease, lumbar 722.52 Active Problem Insomnia 780.52 Active Problem Unspecified breast screening V76.10 Active Problem Cellulitis and abscess of leg, except foot 682.6 Active Problem Pyelonephritis 590.80 Active Problem Helicobacter pylori (H. pylori) infection 041.86 Active Problem COPD (chronic obstructive pulmonary disease) 496 Active Problem PTSD (post-traumatic stress disorder) 309.81 Active Problem Migraine 346.90 Active Problem Depression 311 Active Problem Urinary tract infection, site not specified 599.0 Active Problem Restless legs syndrome [RLS] 333.94 Active Problem Screening for malignant neoplasm of the cervix V76.2 Active Problem Special screening examination, human papillomavirus [HPV] V73.81 Active Problem Pain in joint, pelvic region and thigh 719.45 Active Problem Thoracic or lumbosacral neuritis or radiculitis, unspecified 724.4 Active Problem Other affections of shoulder region, not elsewhere classified 726.2 Active Problem Esophageal reflux 530.81 Active Medications No Known Medications Procedures Procedure Coding System Code Date INTRAORL-PERIAPICAL 1 FILM 27003 CPT-4 D0220 November 02, 2014 BITEWING - SINGLE FILM CPT-4 D0270 November 02, 2014 LTD ORAL EVALUATION - PROBLEM FOCUS CPT-4 D0140 November 02, 2014 EXTRAC ERUPTED TOOTH/EXPOSED ROOT CPT-4 D7140 November 02, 2014 Results No Known Results Summary Purpose eClinicalWorks Submission
--- OUTSIDE RECORDS SUMMARY | 2016-08-17 00:22 | XMS REPORT ---
Author Author JAI CORTEZ [facility] eClinicalWorks Address Unknown Phone Unavailable Care Team Providers Care Air Defense Control Officer Name Role Phone JAI CORTEZ CP Unavailable [...] Active Problem HTN (hypertension) I10 Active Medications No Known Medications Results No Known Results Summary Purpose eClinicalWorks Submission
--- OUTSIDE RECORDS SUMMARY | 2016-08-17 00:22 | XMS REPORT ---
Author Author GLADYS AUSTIN Organization eClinicalWorks Address Unknown Phone Unavailable Care Team Providers Care Industrial Relations Specialist Name Role Phone GLADYS AUSTIN CP Unavailable [...] unspecified 724.4 Active Medications No Known Medications Results No Known Results Summary Purpose eClinicalWorks Submission
--- OUTSIDE RECORDS SUMMARY | 2016-08-17 00:22 | XMS REPORT ---
Author Author GLADYS AUSTIN [facility] eClinicalWorks Address Unknown Phone Unavailable Care Team Providers Care Recovery Agent Name Role Phone GLADYS AUSTIN CP Unavailable [...] thigh 719.45 Active Medications No Known Medications Procedures Procedure Coding System Code Date URINALYSIS, AUTO, W/O SCOPE CPT-4 88688 Dec 18, 2014 ROCEPHIN 1 GM (IM) CPT-4 J0696 Dec 18, 2014 Office Visit, Est Pt., Level 3 CPT-4 14486 Dec 18, 2014 THER/PROPH/DIAG INJ, SC/IM CPT-4 70654 Dec 18, 2014 Vital Signs Date/Time: Dec 18, 2014 Temperature 98.8 F Weight 189 lbs Height 64 in BMI 32.44 Index Blood Pressure Diastolic 90 mmHg Blood Pressure Systolic 120 mmHg Results Name Result Date Reference Range Unit Abnormality Flag UA LONG DIP (IN HOUSE) Summary Purpose eClinicalWorks Submission
--- OUTSIDE RECORDS SUMMARY | 2016-08-17 00:23 | XMS REPORT ---
Author Author JAI CORTEZ [facility] eClinicalWorks Address Unknown Phone Unavailable Care Team Providers Care Application Technical Designer Name Role Phone JAI CORTEZ CP Unavailable Allergies, Adverse Reactions, Alerts Substance Reaction Event Type Sulfamethoxazole-Trimethoprim anaphylaxis Drug Allergy Sulfamethoxazole-Trimethoprim anaphylaxis Drug Allergy Levaquin Info Not Available Drug Allergy Depakote nausea Drug Allergy Avelox rash Drug Allergy Augmentin anaphylaxis Drug Allergy Augmentin rash Drug Allergy Problems Problem Type Condition Code Onset Dates Condition Status Problem History of MRSA infection Z86.14 Active Problem Hx of migraines Z86.69 Active Problem Family history of diabetes mellitus Z83.3 Active Problem Anxiety state, unspecified F41.1 Active Problem Depression, unspecified depression type F32.9 Active Problem Schizoaffective disorder, unspecified type F25.9 Active Problem GERD (gastroesophageal reflux disease) K21.9 Active Problem HTN (hypertension) I10 Active Problem History of seizures Z87.898 Active Problem Hypothyroidism E03.9 Active Assessment GERD (gastroesophageal reflux disease) K21.9 Active Assessment HTN (hypertension) I10 Active Assessment History of chronic pain Z87.898 Active Assessment Cellulitis of face L03.211 Active Assessment Hypothyroidism E03.9 Active Assessment Depression, unspecified depression type F32.9 Active Medications Medication Code System Code Instructions Start Date End Date Status Dosage Omeprazole [facility] [address]-29 40 MG Orally Once a day [address] [facility] [address]-39 not defined Imitrex [facility] [address]-07 not defined Lisinopril-Hydrochlorothiazide [facility] [address]-18 20-12.5 MG Orally Once a day [address] [facility] [address]-20 500 MG Orally not defined Valium [facility] [address]-70 5 MG Orally qd prn anxiety October 22, 2015 1 tablet as needed Cleocin [facility] [address]-17 300 MG Orally every 8 hrs October 22, 2015October 1 capsule Promethazine HCl [facility] [address]-35 25 MG Orally every 12 hrs October 03, 2015 1 tablet as needed Ventolin HFA [facility] [address]-15 108 (90 Base) MCG/ACT Inhalation every 4 hrs 2 puffs as needed HydrOXYzine HCl [facility] [address]-69 50 MG Orally every 6 hrs 1 tablet as needed Gabapentin [facility] [address]-57 800 MG Orally Three times a day 1 tablet Prozac [facility] [address]-59 40 mg Orally Once a day October 22, 2015 1 capsule in the morning Levothyroxine Sodium [facility] [address]-50 125 mcg Orally Once a day 1 tablet Ibuprofen [facility] [address]-33 800 MG Orally Three times a day 1 tablet Procedures Procedure Coding System Code Date Office Visit, Est Pt., Level 5 CPT-4 83177 October 22, 2015 Vital Signs Date/Time: October 22, 2015 Cardiac Monitoring Heart Rate 70 bpm Weight 191.5 lbs Height 64 in Blood Pressure Diastolic 80 mmHg Blood Pressure Systolic 118 mmHg Results No Known Results Summary Purpose eClinicalWorks Submission
--- OUTSIDE RECORDS SUMMARY | 2016-08-17 00:24 | XMS REPORT ---
Author Author GLADYS AUSTIN [facility] eClinicalWorks Address Unknown Phone Unavailable Care Team Providers Care Fruit Dumper Name Role Phone GLADYS AUSTIN CP Unavailable Allergies, Adverse Reactions, Alerts Substance Reaction Event Type SulfADIAZINE rash Drug Allergy Depakote nausea Drug Allergy Avelox rash Drug Allergy Augmentin rash Drug Allergy Problems Problem Type Condition Code Onset Dates Condition Status Problem Unspecified constipation 564.00 Active Assessment Cellulitis [...] Instructions Start Date End Date Status Dosage Rifampin [facility] [address]-43 300 MG Orally 3 times a day Jan 22, 2015 1 cap Clindamycin HCl [facility] [address]-22 300 MG Orally every 8 hrs Jan 22, 2015 Feb 01, 2015 1 capsule Potassium Chloride [facility] [address]-99 20 MEQ Orally Twice a day 1 tablet Gabapentin [facility] [address]-52 800 MG Orally Three times a day 1 tablet Tramadol HCl [facility] [address]-91 50 MG Orally 3 times a day, PRN Dec 26, 2014 1 tablet as needed Topiramate [facility] [address]-70 100 MG Orally Twice a day 1 tablet Bactroban [facility] [address]-86 2 % Externally Three times a day 1 application to affected area Ibuprofen [facility] [address]-11 800 MG Orally Three times a day 1 tablet Omeprazole [facility] [address]-83 40 MG Orally Once a day 1 capsule Doxycycline Hyclate [facility] [address]-12 100 MG Orally every 12 hrs 1 capsule Procedures Procedure Coding System Code Date Office Visit, Est Pt., Level 3 CPT-4 90134 Jan 24, 2015 Vital Signs Date/Time: Jan 24, 2015 Temperature 97.9 F Weight 187.0 lbs Height 64 in BMI 32.09 Index Blood Pressure Diastolic 90 mmHg Blood Pressure Systolic 130 mmHg Cardiac Monitoring Heart Rate 56 bpm Results No Known Results Summary Purpose eClinicalWorks Submission
--- OUTSIDE RECORDS SUMMARY | 2016-08-17 00:24 | XMS REPORT ---
Author Author JAI CORTEZ [facility] eClinicalWorks Address Unknown Phone Unavailable Care Team Providers Care Credit Analysis Manager Name Role Phone JAI CORTEZ CP Unavailable [...]
--- OUTSIDE RECORDS SUMMARY | 2016-08-17 00:24 | XMS REPORT ---
Author Author GLADYS AUSTIN [facility] eClinicalWorks Address Unknown Phone Unavailable Care Team Providers Care Ui Designer Name Role Phone GLADYS AUSTIN CP Unavailable Allergies No Known Allergies Problems Problem Type Condition Code Onset Dates Condition Status Problem Cellulitis and abscess of face 682.0 Active Problem Unspecified constipation 564.00 Active Problem Diarrhea 787.91 Active Problem Abdominal pain, generalized 789.07 Active Problem Acute nasopharyngitis (common cold) 460 Active Problem Lumbago 724.2 Active Problem Helicobacter pylori (H. pylori) infection 041.86 Active Problem Cellulitis and abscess of leg, except foot 682.6 Active Problem Unspecified breast screening V76.10 Active Problem PTSD (post-traumatic stress disorder) 309.81 Active Problem Screening for malignant neoplasm of the cervix V76.2 Active Problem COPD (chronic obstructive pulmonary disease) 496 Active Problem Special screening examination, human papillomavirus [HPV] V73.81 Active Problem Depression 311 Active Problem Insomnia 780.52 Active Problem Migraine 346.90 Active Problem Right wrist pain M25.531 Active Problem Strain of right wrist S66.911A Active Problem Other affections of shoulder region, not elsewhere classified 726.2 Active Problem Restless legs syndrome [RLS] 333.94 Active Problem Urinary tract infection, site not specified N39.0 Active Problem Urinary tract infection, site not specified 599.0 Active Problem Pyelonephritis 590.80 Active Problem Degenerative disc disease, lumbar 722.52 Active Problem Facial abscess L02.01 Active Problem UTI (urinary tract infection) 599.0 Active Problem Thoracic or lumbosacral neuritis or radiculitis, unspecified 724.4 Active Assessment Trichomoniasis A59.9 Active Problem Acute bronchitis 466.0 Active Problem Esophageal reflux 530.81 Active Problem Pain in joint, pelvic region and thigh 719.45 Active Problem Acute sinusitis, unspecified 461.9 Active Problem Chronic back pain 724.5 Active Problem Palpitations 785.1 Active Problem Chest pain, unspecified 786.50 Active Medications Medication Code System Code Instructions Start Date End Date Status Dosage Yara [facility] [address]-97 500 MG Orally once May 02, 2015 4 tablets Results No Known Results Summary Purpose eClinicalWorks Submission
--- OUTSIDE RECORDS SUMMARY | 2016-08-17 00:24 | XMS REPORT ---
Author IRMA Swain [facility] eClinicalWorks Address Unknown Phone Unavailable Care Team Providers Care Solar Installer Technician Name Role Phone IRMA ARIAS Unavailable Allergies No Known Allergies Problems Problem Type Condition ICD-9 Code Onset Dates Condition Status Assessment Cellulitis and abscess of face 682.0 [...] Instructions Start Date End Date Status Dosage Wilber [facility] [address]-05 0.5 % Externally one time Dec 13, 2014 as directed Procedures Procedure Coding System Code Date THER/PROPH/DIAG INJ, SC/IM CPT-4 88769 Dec 13, 2014 ROCEPHIN 1 GM () CPT-4 J0696 Dec 13, 2014 Results No Known Results Summary Purpose eClinicalWorks Submission
--- OUTSIDE RECORDS SUMMARY | 2016-08-17 00:24 | XMS REPORT ---
Author YUKI Rodriguez Organization [employer] Address Unknown Phone Unavailable Care Team Providers Care Railroader Name Role Phone YUKI BRAN CP Unavailable Allergies No Known Allergies Problems Problem Type Condition Code Onset Dates Condition Status Problem Urinary tract infection N39.0 Active Assessment test negative Z32.02 Active Problem Obesity E66.9 Active Problem Urinary tract infection, site not specified N39.0 Active Problem Cervicalgia M54.2 Active Problem Dysuria R30.0 Active Problem Abnormal lung sounds R09.89 Active Problem General medical exam Z00.00 Active Problem Right upper quadrant pain R10.11 Active Problem Family history of cancer Z80.9 Active Problem Family history of diabetes mellitus Z83.3 Active Problem Shortness of breath R06.02 Active Problem History of MRSA infection Z86.14 Active Problem History of tremor G25.0 Active Problem History of seizures Z87.898 Active Problem Exposure to hepatitis Z20.5 Active Problem History of chronic pain Z87.898 Active Problem High risk sexual behavior Z72.51 Active Problem HTN (hypertension) I10 Active Problem Family history of brain aneurysm Z82.49 Active Problem Hx of migraines Z86.69 Active Problem History of chest pain Z87.898 Active Problem History of drug abuse Z87.898 Active Problem GERD (gastroesophageal reflux disease) K21.9 Active Problem Hypothyroidism E03.9 Active Medications No Known Medications Procedures Procedure Coding System Code Date URINE TEST CPT-4 16796 July 29, 2015 Results No Known Results Summary Purpose eClinicalWorks Submission
--- OUTSIDE RECORDS SUMMARY | 2016-08-17 00:24 | XMS REPORT ---
Author Author JAI CORTEZ [facility] Address [address] [place] [address] Care Team Providers Care Inspector Motor Vehicles Name Role Phone JAI CORTEZ Unavailable PROBLEMS Type Condition ICD9-CM Code [id number] Code Onset Dates Condition Status SNOMED Code Problem GERD (gastroesophageal reflux disease) K21.9 Active 422005984 Problem History of seizures Z87.898 Active 678608219 Problem Hypothyroidism E03.9 Active 16712505 Problem History of MRSA infection Z86.14 Active 534292052 Problem Family history of diabetes mellitus Z83.3 Active 634980103 Problem Hx of migraines Z86.69 Active 243911425 Problem HTN (hypertension) I10 Active 03806593 Problem Irritable bowel syndrome with diarrhea K58.0 Active 798047842 Problem Lumbago with sciatica, right side M54.41 Active 874329687 Problem Anxiety state, unspecified F41.1 Active 224186482 Problem Depression, unspecified depression type F32.9 Active 25173439 Problem Lumbago with sciatica, left side M54.42 Active 492620448 Problem Schizoaffective disorder, unspecified type F25.9 Active 46431842 ALLERGIES Unknown Allergies SOCIAL HISTORY No smoking Hx information available PLAN OF CARE VITAL SIGNS MEDICATIONS Unknown Medications RESULTS No Results PROCEDURES No Known procedures IMMUNIZATIONS No Known Immunizations
--- OUTSIDE RECORDS SUMMARY | 2016-08-17 00:24 | XMS REPORT ---
Author Author JAI CORTEZ [facility] eClinicalWorks Address Unknown Phone Unavailable Care Team Providers Care Sheet Rocker Name Role Phone JAI CORTEZ CP Unavailable [...] Problem Hx of migraines Z86.69 Active Assessment High risk sexual behavior Z72.51 Active Problem HTN (hypertension) I10 Active Medications No Known Medications Results No Known Results Summary Purpose eClinicalWorks Submission
--- OUTSIDE RECORDS SUMMARY | 2016-08-17 00:24 | XMS REPORT ---
Author Author JAI CORTEZ [facility] eClinicalWorks Address Unknown Phone Unavailable Care Team Providers Care Franchise Consultant Name Role Phone JAI CORTEZ CP Unavailable [...] (hypertension) I10 Active Medications No Known Medications Procedures Procedure Coding System Code Date No Charge CPT-4 24152 Jan 27, 2016 Results No Known Results Summary Purpose eClinicalWorks Submission
--- OUTSIDE RECORDS SUMMARY | 2016-08-17 00:25 | XMS REPORT ---
Author Author JAI CORTEZ [facility] Address [address] [place] [address] Care Team Providers Care Heating Engineer Name Role Phone JAI CORTEZ Unavailable PROBLEMS Type Condition ICD9-CM Code [id number] Code Onset Dates Condition Status SNOMED Code Problem GERD (gastroesophageal reflux disease) K21.9 Active 462492280 Problem History of seizures Z87.898 Active 174968653 Problem Hypothyroidism E03.9 Active 35488469 Problem History of MRSA infection Z86.14 Active 342965509 Problem Family history of diabetes mellitus Z83.3 Active 480691491 Problem Hx of migraines Z86.69 Active 825008215 Problem HTN (hypertension) I10 Active 32446305 Problem Irritable bowel syndrome with diarrhea K58.0 Active 660374439 Problem Lumbago with sciatica, right side M54.41 Active 290696254 Problem Anxiety state, unspecified F41.1 Active 617291485 Problem Depression, unspecified depression type F32.9 Active 39464868 Problem Lumbago with sciatica, left side M54.42 Active 189869012 Problem Schizoaffective disorder, unspecified type F25.9 Active 42939362 ALLERGIES Unknown Allergies SOCIAL HISTORY No smoking Hx information available PLAN OF CARE VITAL SIGNS MEDICATIONS Medication Instructions Dosage Frequency Start Date End Date Duration Status Valium 5 mg Orally Once a day 1 tablet as needed 24h 12 Oct, 2015 Active RESULTS No Results PROCEDURES No Known procedures IMMUNIZATIONS No Known Immunizations
--- OUTSIDE RECORDS SUMMARY | 2016-08-17 00:25 | XMS REPORT ---
Author Author JAI CORTEZ Organization [facility] Address [address] [place] [address] Care Team Providers Care Australian Rules Footballer Name Role Phone JAI CORTEZ Unavailable PROBLEMS Type Condition ICD9-CM Code ETK34-MR Code Onset Dates Condition Status SNOMED Code Problem GERD (gastroesophageal reflux disease) K21.9 Active 926797812 Problem History of seizures Z87.898 Active 642345446 Problem Hypothyroidism E03.9 Active 56987907 Problem Irritable bowel syndrome with diarrhea K58.0 Active 960815947 Problem Lumbago with sciatica, right side M54.41 Active 890589426 Problem Anxiety state, unspecified F41.1 Active 725059562 Problem Depression, unspecified depression type F32.9 Active 81428580 Problem Lumbago with sciatica, left side M54.42 Active 837474372 Problem Schizoaffective disorder, unspecified type F25.9 Active 45331615 Problem History of MRSA infection Z86.14 Active 166535338 Problem Family history of diabetes mellitus Z83.3 Active 167524842 Problem Hx of migraines Z86.69 Active 776725041 Assessment Methamphetamine abuse F15.10 Dec, 2016 Active 749130333 Problem HTN (hypertension) I10 Active 46748682 ALLERGIES Unknown Allergies SOCIAL HISTORY No smoking Hx information available PLAN OF CARE VITAL SIGNS MEDICATIONS Unknown Medications RESULTS No Results PROCEDURES No Known procedures IMMUNIZATIONS No Known Immunizations
--- OUTSIDE RECORDS SUMMARY | 2016-08-17 00:25 | XMS REPORT ---
Author Author JAI CORTEZ [facility] Address [address] [place] [address] Care Team Providers Care Lead Military Analyst Name Role Phone JAI CORTEZ Unavailable PROBLEMS Type Condition ICD9-CM Code [id number] Code Onset Dates Condition Status SNOMED Code Problem GERD (gastroesophageal reflux disease) K21.9 Active 202313259 Problem History of seizures Z87.898 Active 981671351 Problem Hypothyroidism E03.9 Active 00085584 Problem Irritable bowel syndrome with diarrhea K58.0 Active 692104847 Problem Lumbago with sciatica, right side M54.41 Active 257764636 Problem Anxiety state, unspecified F41.1 Active 653472546 Problem Depression, unspecified depression type F32.9 Active 74840266 Problem Lumbago with sciatica, left side M54.42 Active 614824161 Problem Schizoaffective disorder, unspecified type F25.9 Active 03919510 Problem History of MRSA infection Z86.14 Active 751881195 Problem Family history of diabetes mellitus Z83.3 Active 346373594 Problem Hx of migraines Z86.69 Active 744751401 Assessment Irritable bowel syndrome with diarrhea K58.0 Dec, Active 638403253 Problem HTN (hypertension) I10 Active 70116240 ALLERGIES Substance Reaction Event Type Date Status Sulfamethoxazole-Trimethoprim anaphylaxis Drug Allergy Dec, Active Sulfamethoxazole-Trimethoprim anaphylaxis Drug Allergy Dec, Active Levaquin Unknown Drug Allergy Dec, Active Depakote nausea Drug Allergy Dec, Active Avelox rash Drug Allergy Dec, Active Augmentin anaphylaxis Drug Allergy Dec, Active Augmentin rash Drug Allergy Dec, Active SOCIAL HISTORY No smoking Hx information available PLAN OF CARE VITAL SIGNS Height 64 in 2015-12-30 Weight 184.4 lbs 2015-12-30 Heart Rate 64 bpm 2015-12-30 Respiratory Rate 18 2015-12-30 BMI 31.65 kg/m2 2015-12-30 Blood pressure systolic 90 mmHg 2015-12-30 Blood pressure diastolic 60 mmHg 2015-12-30 MEDICATIONS Medication Instructions Dosage Frequency Start Date End Date Duration Status HydrOXYzine HCl 50 MG Orally every 6 hrs 1 tablet as needed 6h Active Levothyroxine Sodium 125 mcg Orally Once a day 1 tablet 24h Active Lisinopril 10 mg Orally Once a day 1 tablet 24h Oct, Active Omeprazole 40 MG Orally Once a day 1 capsule 24h Active Ibuprofen 800 MG Orally Three times a day 1 tablet 8h Active Imitrex Active Bentyl 10 mg Orally 3 times a day, ac 1 capsule Dec, Active Prozac 40 mg Orally Once a day 1 capsule in the morning 24h Oct, Active Imitrex 100 MG Orally 1 time per day and repeat once more after 2 hours if headache recurs PRN 1 tablet Nov, Active Promethazine HCl 25 MG Orally every 6 hours as needed 1 tablet as needed Sep, Active Valium 5 mg Orally Once a day 1 tablet as needed 24h Oct, Active Gabapentin 800 MG Orally Three times a day 1 tablet 8h Active Tramadol HCl 50 mg Orally every 6 hours 1 6h Active Ventolin HFA 108 (90 Base) MCG/ACT Inhalation every 4 hrs 2 puffs as needed 4h Active RESULTS No Results PROCEDURES Procedure Date Ordered Related Diagnosis Body Site Office Visit, Est Pt., Level 3 Dec 30, 2015 IMMUNIZATIONS No Known Immunizations
--- OUTSIDE RECORDS SUMMARY | 2016-08-17 00:25 | XMS REPORT ---
Author Author GLADYS AUSTIN [facility] eClinicalWorks Address Unknown Phone Unavailable Care Team Providers Care Cook Dinner Name Role Phone GLADYS AUSTIN CP Unavailable [...] Instructions Start Date End Date Status Dosage Ibuprofen NDC [address]-12 800 MG Orally Three times a day 1 tablet Omeprazole [facility] [address]-94 40 MG Orally Once a day 1 capsule Results No Known Results Summary Purpose eClinicalWorks Submission
--- OUTSIDE RECORDS SUMMARY | 2016-08-17 00:25 | XMS REPORT ---
Author Author GLADYS AUSTIN Organization [employer] Address Unknown Phone Unavailable Care Team Providers Care Reserve Operator Name Role Phone GLADYS AUSTIN CP [...] Instructions Start Date End Date Status Dosage Tramadol HCl [facility] [address]-93 50 MG Orally 3 times a day, PRN Dec 26, 2014 1 tablet as needed Results No Known Results Summary Purpose eClinicalWorks Submission
--- OUTSIDE RECORDS SUMMARY | 2016-08-17 00:25 | XMS REPORT ---
Author Author FRANCHESCA CALIXTO [facility] eClinicalWorks Address Unknown Phone Unavailable Care Team Providers Care Director Of Brand Marketing Name Role Phone FRANCHESCA CALIXTO CP Unavailable Allergies No Known Allergies Problems [...] Depression, unspecified depression type F32.9 Active Assessment Schizoaffective disorder, unspecified type F25.9 Active Assessment Depression, unspecified depression type F32.9 Active Problem History of MRSA infection Z86.14 Active Assessment Anxiety state, unspecified F41.1 Active Problem Family history of diabetes mellitus Z83.3 Active Medications No Known Medications Procedures Procedure Coding System Code Date Psych diagnostic evaluation, established patient CPT-4 91843 October 31, 2015 Results No Known Results Summary Purpose eClinicalWorks Submission
--- OUTSIDE RECORDS SUMMARY | 2016-08-17 00:25 | XMS REPORT ---
Author Author GLADYS AUSTIN [facility] eClinicalWorks Address Unknown Phone Unavailable Care Team Providers Care Fresh Foods Technician Name Role Phone GLADYS AUSTIN CP Unavailable Allergies, Adverse Reactions, Alerts Substance Reaction Event Type SulfADIAZINE rash Drug Allergy Depakote nausea Drug Allergy Avelox rash Drug Allergy Augmentin rash Drug Allergy Problems Problem Type Condition ICD-9 Code Onset Dates Condition Status Assessment Chronic back pain 724.5 Active Assessment UTI (urinary tract infection) 599.0 Active Problem Unspecified constipation 564.00 Active [...] Code Date URINALYSIS, AUTO, W/O SCOPE CPT-4 70420 Dec 25, 2014 Office Visit, Est Pt., Level 3 CPT-4 94795 Dec 25, 2014 Vital Signs Date/Time: Dec 25, 2014 Temperature 98.8 F Weight 187 lbs Height 64 in BMI 32.09 Index Blood Pressure Diastolic 90 mmHg Blood Pressure Systolic 130 mmHg Cardiac Monitoring Heart Rate 80 bpm Results No Known Results Summary Purpose eClinicalWorks Submission
--- OUTSIDE RECORDS SUMMARY | 2016-08-17 00:26 | XMS REPORT ---
Author Author JAI CORTEZ Organization [facility] Address [address] [place] [address] Care Team Providers Care Medical Sonographer Name Role Phone JAI CORTEZ Unavailable PROBLEMS Type Condition ICD9-CM Code EZF31-ML Code Onset Dates Condition Status SNOMED Code Problem GERD (gastroesophageal reflux disease) K21.9 Active 174329800 Problem History of seizures Z87.898 Active 374444563 Problem Hypothyroidism E03.9 Active 35110759 Problem History of MRSA infection Z86.14 Active 203785076 Problem Family history of diabetes mellitus Z83.3 Active 624517167 Problem Hx of migraines Z86.69 Active 136932870 Problem HTN (hypertension) I10 Active 80373737 Problem Irritable bowel syndrome with diarrhea K58.0 Active 879950399 Problem Lumbago with sciatica, right side M54.41 Active 730044404 Problem Anxiety state, unspecified F41.1 Active 168304372 Problem Depression, unspecified depression type F32.9 Active 16447609 Problem Lumbago with sciatica, left side M54.42 Active 868267923 Problem Schizoaffective disorder, unspecified type F25.9 Active 37592659 ALLERGIES Unknown Allergies SOCIAL HISTORY No smoking Hx information available PLAN OF CARE VITAL SIGNS MEDICATIONS Medication Instructions Dosage Frequency Start Date End Date Duration Status Ventolin HFA 108 (90 Base) MCG/ACT Inhalation every 4 hrs 2 puffs as needed 4h Active RESULTS No Results PROCEDURES No Known procedures IMMUNIZATIONS No Known Immunizations
--- OUTSIDE RECORDS SUMMARY | 2016-08-17 00:26 | XMS REPORT ---
Author JAI Dobbins [facility] eClinicalWorks Address Unknown Phone Unavailable Care Team Providers Care Parking Enforcement Manager Name Role Phone JAI CORTEZ CP [...] Schizoaffective disorder, unspecified type F25.9 Active Assessment High risk sexual behavior Z72.51 Active Assessment Irritable bowel syndrome with diarrhea K58.0 Active Problem History of MRSA infection Z86.14 Active Problem Family history of diabetes mellitus Z83.3 Active Assessment Lumbago with sciatica, right side M54.41 Active Problem Hx of migraines Z86.69 Active Assessment Schizoaffective disorder, unspecified type F25.9 Active Problem HTN (hypertension) I10 Active Medications Medication Code System Code Instructions Start Date End Date Status Dosage Prozac [facility] [address]-19 40 mg Orally Once a day October 22, 2015 1 capsule in the morning Lisinopril [facility] [address]-83 10 mg Orally Once a day October 31, 2015 1 tablet Ibuprofen [facility] [address]-54 800 MG Orally Three times a day 1 tablet Tramadol HCl [facility] [address]-53 50 mg Orally every 6 hours 1 Valium [facility] [address]-13 5 mg Orally Once a day October 22, 2015 1 tablet as needed Omeprazole [facility] [address]-83 40 MG Orally Once a day 1 capsule Levothyroxine Sodium [facility] [address]-27 125 mcg Orally Once a day 1 tablet Abilify [facility] [address]-43 5 mg Orally Once a day Jan 14, 2016 1 tablet Bentyl [facility] [address]-22 10 mg Orally 3 times a day, ac Dec 30, 2015 1 capsule Imitrex [facility] [address]-27 100 MG Orally 1 time per day and repeat once more after 2 hours if headache recurs PRN Nov 29, 2015 1 tablet HydrOXYzine HCl [facility] [address]-55 50 MG Orally every 6 hrs 1 tablet as needed Gabapentin [facility] [address]-63 800 MG Orally Three times a day 1 tablet Ventolin HFA [facility] [address]-61 108 (90 Base) MCG/ACT Inhalation every 4 hrs 2 puffs as needed Procedures Procedure Coding System Code Date LAB [facility] CPT-4 NOBLL Jan 14, 2016 Office Visit, Est Pt., Level 4 CPT-4 86627 Jan 14, 2016 No Charge CPT-4 08426 Jan 14, 2016 VENIPUNCT, ROUTINE* CPT-4 27113 Jan 14, 2016 Vital Signs Date/Time: Jan 14, 2016 Cardiac Monitoring Heart Rate 66 bpm Weight 179.8 lbs Height 64 in BMI 30.86 Index Blood Pressure Diastolic 72 mmHg Blood Pressure Systolic 98 mmHg Results Name Result Date Reference Range Unit Abnormality Flag ROUTINE VENIPUNCTURE Summary Purpose eClinicalWorks Submission
--- OUTSIDE RECORDS SUMMARY | 2016-08-17 00:26 | XMS REPORT ---
Author Author GLADYS AUSTIN [facility] eClinicalWorks Address Unknown Phone Unavailable Care Team Providers Care Excelsior Picker Name Role Phone GLADYS AUSTIN CP Unavailable Allergies, Adverse Reactions, Alerts Substance Reaction Event Type SulfADIAZINE rash Drug Allergy Depakote nausea Drug Allergy Avelox rash Drug Allergy Augmentin rash Drug Allergy Problems Problem Type Condition Code Onset Dates Condition Status Assessment Strain of right wrist S66.911A Active Problem Cellulitis and abscess of face 682.0 Active Problem Unspecified constipation 564.00 Active Problem Abdominal pain, generalized 789.07 Active [...] PTSD (post-traumatic stress disorder) 309.81 Active Problem Depression 311 Active Problem COPD (chronic obstructive pulmonary disease) 496 Active Problem Facial abscess L02.01 Active Problem UTI (urinary tract infection) 599.0 Active Problem Urinary tract infection, site not specified 599.0 Active Problem Special screening examination, human papillomavirus [HPV] V73.81 Active Problem Strain of right wrist S66.911A Active Problem Screening for malignant neoplasm of the cervix V76.2 Active Problem Insomnia 780.52 Active Problem Migraine 346.90 Active Problem Pyelonephritis 590.80 Active Problem Degenerative disc disease, lumbar 722.52 Active Problem Esophageal reflux 530.81 Active Problem Pain in joint, pelvic region and thigh 719.45 Active Problem Restless legs syndrome [RLS] 333.94 Active Problem Other affections of shoulder region, not elsewhere classified 726.2 Active Problem Palpitations 785.1 Active Problem Chest pain, unspecified 786.50 Active Problem Thoracic or lumbosacral neuritis or radiculitis, unspecified 724.4 Active Problem Acute bronchitis 466.0 Active Medications Medication Code System Code Instructions Start Date End Date Status Dosage Bactroban [facility] [address]-65 2 % Externally Three times a day 1 application to affected area Potassium Chloride [facility] [address]-22 20 MEQ Orally Twice a day 1 tablet Gabapentin [facility] [address]-73 800 MG Orally Three times a day 1 tablet Rifampin [facility] [address]-08 300 MG Orally 3 times a day Jan 22, 2015 1 cap Lisinopril-Hydrochlorothiazide [facility] [address]-72 20-12.5 MG Orally Once a day Jan 29, 2015 1 tablet Topiramate [facility] [address]-41 100 MG Orally Twice a day 1 tablet Hydrocodone-Acetaminophen [facility] [address]-27 5-325 MG Orally 3 times a day Feb 26, 2015 1 tablet as needed Ibuprofen [facility] [address]-20 800 MG Orally Three times a day 1 tablet Omeprazole [facility] [address]-00 40 MG Orally Once a day 1 capsule Procedures Procedure Coding System Code Date Office Visit, Est Pt., Level 3 CPT-4 06466 Mar 05, 2015 Vital Signs Date/Time: Mar 05, 2015 Temperature 98.7 F Weight 187 lbs Height 64 in BMI 32.09 Index Blood Pressure Diastolic 72 mmHg Blood Pressure Systolic 128 mmHg Cardiac Monitoring Heart Rate 55 bpm Results No Known Results Summary Purpose eClinicalWorks Submission
--- OUTSIDE RECORDS SUMMARY | 2016-08-17 00:26 | XMS REPORT ---
Author Author AYLEEN ROBERSON [facility] eClinicalWorks Address Unknown Phone Unavailable Care Team Providers Care Aoc Airspace Control Officer Name Role Phone AYLEEN ROBERSON CP Unavailable Allergies, Adverse Reactions, Alerts Substance Reaction Event Type SulfADIAZINE rash Drug Allergy Depakote nausea Drug Allergy Avelox rash Drug Allergy Augmentin rash Drug Allergy Problems Problem Type Condition Code Onset Dates Condition Status Assessment Dental caries K02.9 Active Problem Unspecified constipation 564.00 Active Assessment Dental examination Z01.20 Active Problem Cellulitis and abscess of face [...] Start Date End Date Status Dosage Ibuprofen [facility] [address]-33 800 MG Orally Three times a day 1 tablet Topiramate [facility] [address]-06 100 MG Orally Twice a day 1 tablet Bactroban [facility] [address]-26 2 % Externally Three times a day 1 application to affected area [place] [facility] [address]-10 5-325 MG Orally every 6 hrs Feb 19, 2015 Feb 23, 2015 1 tablet as needed Lisinopril-Hydrochlorothiazide [facility] [address]-24 20-12.5 MG Orally Once a day Jan 29, 2015 1 tablet Rifampin [facility] [address]-84 300 MG Orally 3 times a day Jan 22, 2015 1 cap Omeprazole [facility] [address]-16 40 MG Orally Once a day 1 capsule Gabapentin [facility] [address]-66 800 MG Orally Three times a day 1 tablet Potassium Chloride [facility] [address]-97 20 MEQ Orally Twice a day 1 tablet Diflucan [facility] [address]-89 150 MG Orally Once a day, repeat in 1 week Feb 04, 2015 1 tablet Doxycycline Hyclate [facility] [address]-00 100 MG Orally every 12 hrs 1 capsule Procedures Procedure Coding System Code Date INTRAORL-PERIAPICAL 1 FILM 30454 CPT-4 D0220 Feb 19, 2015 INTRAORL-PERIAPICAL EA ADD FILM CPT-4 D0230 Feb 19, 2015 LTD ORAL EVALUATION - PROBLEM FOCUS CPT-4 D0140 Feb 19, 2015 EXTRAC ERUPTED TOOTH/EXPOSED ROOT CPT-4 D7140 Feb 19, 2015 BITEWING - SINGLE FILM CPT-4 D0270 Feb 19, 2015 Vital Signs Date/Time: Feb 19, 2015 Blood Pressure Diastolic 90 mmHg Blood Pressure Systolic 140 mmHg Results No Known Results Summary Purpose eClinicalWorks Submission
--- OUTSIDE RECORDS SUMMARY | 2016-08-17 00:26 | XMS REPORT ---
Author Author GLADYS AUSTIN Organization e[employer] Address Unknown Phone Unavailable Care Team Providers Care Director Of Nursing Name Role Phone GLADYS AUSTIN CP Unavailable Allergies, Adverse Reactions, Alerts Substance Reaction Event Type Sulfamethoxazole-Trimethoprim anaphylaxis Drug Allergy Levaquin Info Not Available Drug Allergy Depakote nausea Drug Allergy Avelox rash Drug Allergy Augmentin rash Drug Allergy Problems Problem Type Condition Code Onset Dates Condition Status Problem Urinary tract infection N39.0 Active Assessment Boil, face L02.03 Active Problem Obesity E66.9 Active Problem Urinary [...] K21.9 Active Problem Hypothyroidism E03.9 Active Medications Medication Code System Code Instructions Start Date End Date Status Dosage Clindamycin HCl [facility] [place] [address]-65 300 MG Orally 2 times a day July 18, 2015 July 28, 2015 1 capsule Topiramate [facility] [place] [address]-71 100 MG Orally Twice a day 1.5 tablets Lisinopril-Hydrochlorothiazide [facility] [place] [address]-98 20-12.5 MG Orally Once a day Jan 29, 2015 1 tablet Zofran [facility] [place] [address]-25 8 MG Orally q 8 hours prn Jun 05, 2015 1 tablet Levothyroxine Sodium [facility] [place] [address]-66 88 MCG Orally Once a day 1 tablet Gabapentin [facility] [place] [address]-90 800 MG Orally Three times a day 1 tablet Omeprazole [facility] [place] [address]-13 40 MG Orally Once a day 1 capsule Ibuprofen [facility] [place] [address]-88 800 MG Orally Three times a day 1 tablet ProAir HFA [facility] [place] [address]-47 108 (90 Base) MCG/ACT Inhalation every 4 hrs May 21, 2015 2 puffs as needed Procedures Procedure Coding System Code Date [facility] NOBLL July 18, 2015 Office Visit, Est Pt., Level 3 CPT-4 91769 July 18, 2015 Vital Signs Date/Time: July 18, 2015 Temperature 98.1 F Weight 193.0 lbs Height 64 in BMI 33.12 Index Blood Pressure Diastolic 70 mmHg Blood Pressure Systolic 102 mmHg Cardiac Monitoring Heart Rate 68 bpm Results Name Result Date Reference Range Unit Abnormality Flag CULTURE, ANAEROBIC AND AEROBIC ----Anaerobic Culture [facility] [id number] ----Aerobic Culture Final report [id number] ----Request Problem [facility] [id number] Summary Purpose eClinicalWorks Submission
--- OUTSIDE RECORDS SUMMARY | 2016-08-17 00:26 | XMS REPORT ---
Author KAELA Phillip [facility] eClinicalWorks Address Unknown Phone Unavailable Care Team Providers Care Store Clerk Cashier Name Role Phone KAELA MUNROE CP Unavailable Allergies No Known Allergies Problems [...] neuritis or radiculitis, unspecified 724.4 Active Assessment De Quervain's disease (radial styloid tenosynovitis) M65.4 Active Problem Acute bronchitis 466.0 Active Problem Esophageal reflux 530.81 Active Problem Pain in joint, pelvic region and thigh 719.45 Active Problem Acute sinusitis, unspecified 461.9 Active Problem Chronic back pain 724.5 Active Problem Palpitations 785.1 Active Problem Chest pain, unspecified 786.50 Active Medications No Known Medications Procedures Procedure Coding System Code Date DRAIN/INJECT, JOINT/BURSA CPT-4 May 16, 2015 DEPO MEDROL 40 MG/ML CPT-4 J1030 May 16, 2015 Office Visit, Est Pt., Level 3 CPT-4 28111 May 16, 2015 Vital Signs Date/Time: May 16, 2015 Blood Pressure Diastolic 81 mmHg Blood Pressure Systolic 110 mmHg Height 64 in Results Name Result Date Reference Range Unit Abnormality Flag JOINT INJECTION-SMALL JOINT (specify site) Summary Purpose eClinicalWorks Submission
--- OUTSIDE RECORDS SUMMARY | 2016-08-17 00:27 | XMS REPORT ---
Author Author GLADYS AUSTIN [facility] eClinicalWorks Address Unknown Phone Unavailable Care Team Providers Care Insurance Collector Name Role Phone GLADYS AUSTIN CP Unavailable Allergies, Adverse Reactions, Alerts Substance Reaction Event Type SulfADIAZINE rash Drug Allergy Depakote nausea Drug Allergy Avelox rash Drug Allergy Augmentin rash Drug Allergy Problems Problem Type Condition Code Onset Dates Condition Status Assessment Wrist pain, right M25.531 Active Problem Unspecified constipation 564.00 Active Assessment Pain, dental K08.8 Active Problem Cellulitis and abscess of face [...] Start Date End Date Status Dosage Rifampin [facility] [address]-96 300 MG Orally 3 times a day Jan 22, 2015 1 cap Bactroban [facility] [address]-63 2 % Externally Three times a day 1 application to affected area Potassium Chloride [facility] [address]-69 20 MEQ Orally Twice a day 1 tablet Hydrocodone-Acetaminophen [facility] [address]-10 5-325 MG Orally every 6 hrs Feb 26, 2015 1 tablet as needed Ibuprofen [facility] [address]-72 800 MG Orally Three times a day 1 tablet Topiramate [facility] [address]-94 100 MG Orally Twice a day 1 tablet Omeprazole [facility] [address]-81 40 MG Orally Once a day 1 capsule Gabapentin [facility] [address]-38 800 MG Orally Three times a day 1 tablet Lisinopril-Hydrochlorothiazide [facility] [address]-69 20-12.5 MG Orally Once a day Jan 29, 2015 1 tablet Procedures Procedure Coding System Code Date Office Visit, Est Pt., Level 3 CPT-4 05932 Feb 26, 2015 Vital Signs Date/Time: Feb 26, 2015 Temperature 98.3 F Weight 183 lbs Height 64 in BMI 31.41 Index Blood Pressure Diastolic 82 mmHg Blood Pressure Systolic 140 mmHg Cardiac Monitoring Heart Rate 76 bpm Results Name Result Date Reference Range Unit Abnormality Flag Xray : Wrist, Right Summary Purpose eClinicalWorks Submission
--- OUTSIDE RECORDS SUMMARY | 2016-08-17 00:27 | XMS REPORT ---
Author Author GLADYS AUSTIN [facility] eClinicalWorks Address Unknown Phone Unavailable Care Team Providers Care Job Change Crew Member Name Role Phone GLADYS AUSTIN CP Unavailable Allergies No Known Allergies Problems Problem Type Condition ICD-9 Code Onset Dates Condition Status Assessment UTI (urinary tract infection) 599.0 Active Assessment Migraine 346.90 Active Problem Unspecified constipation 564.00 Active Problem [...] Medications Procedures Procedure Coding System Code Date ROCEPHIN 1 GM (IM) CPT-4 J0696 Dec 19, 2014 THER/PROPH/DIAG INJ, SC/IM CPT-4 52831 Dec 19, 2014 URINE CULTURE/COLONY COUNT CPT-4 87159 Dec 19, 2014 PHENERGAN (IM) 12.5 MG (25 MG/ML) CPT-4 J2550 Dec 19, 2014 Results No Known Results Summary Purpose eClinicalWorks Submission
--- OUTSIDE RECORDS SUMMARY | 2016-08-17 00:27 | XMS REPORT ---
Author Author JAI CORTEZ [facility] eClinicalWorks Address Unknown Phone Unavailable Care Team Providers Care Marketing Sales Manager Name Role Phone AJI CORTEZ CP Unavailable Allergies No Known Allergies [...]
--- OUTSIDE RECORDS SUMMARY | 2016-08-17 00:27 | XMS REPORT ---
Author JAI Dobbins [facility] eClinicalWorks Address Unknown Phone Unavailable Care Team Providers Care Gm Name Role Phone JAI CORTEZ CP Unavailable [...] history of diabetes mellitus Z83.3 Active Assessment Thyroid mass E07.9 Active Problem Hx of migraines Z86.69 Active Assessment Worms in stool B83.9 Active Problem HTN (hypertension) I10 Active Medications Medication Code System Code Instructions Start Date End Date Status Dosage HydrOXYzine HCl [facility] [address]-57 50 MG Orally every 6 hrs 1 tablet as needed Omeprazole [facility] [address]-97 40 MG Orally Once a day 1 capsule Abilify [facility] [address]-58 5 mg Orally Once a day Jan 14, 2016 1 tablet Levothyroxine Sodium [facility] [address]-05 125 mcg Orally Once a day 1 tablet Tramadol HCl [facility] [address]-35 50 mg Orally every 6 hours 1 Topiramate [facility] [address]-34 100 MG Orally Twice a day 1.5 tablets Lisinopril [facility] [address]-49 10 mg Orally Once a day October 31, 2015 1 tablet Gabapentin [facility] [address]-86 800 MG Orally Three times a day 1 tablet Prozac [facility] [address]-12 40 mg Orally Once a day October 22, 2015 1 capsule in the morning Omeprazole [facility] [address]-34 40 mg Orally Once a day 1 capsule Alprazolam [facility] [address]-75 0.5 MG Orally Twice a day as needed 1 tablet Imitrex [facility] [address]-77 100 MG Orally 1 time per day and repeat once more after 2 hours if headache recurs PRN Nov 29, 2015 1 tablet Ventolin HFA [facility] [address]-18 108 (90 Base) MCG/ACT Inhalation every 4 hrs 2 puffs as needed Procedures Procedure Coding System Code Date Office Visit, Est Pt., Level 4 CPT-4 02204 Feb 21, 2016 MEASURE BLOOD OXYGEN LEVEL CPT-4 42995 Feb 21, 2016 Vital Signs Date/Time: Feb 21, 2016 Cardiac Monitoring Heart Rate 88 bpm Weight 200.5 lbs Height 64 in BMI 34.41 Index Oximetry 98 % Blood Pressure Diastolic 64 mmHg Blood Pressure Systolic 96 mmHg Results Name Result Date Reference Range Unit Abnormality Flag Ultrasound : Thyroid Summary Purpose eClinicalWorks Submission
--- OUTSIDE RECORDS SUMMARY | 2016-08-17 00:28 | XMS REPORT ---
Author Author JAI CORTEZ [facility] eClinicalWorks Address Unknown Phone Unavailable Care Team Providers Care Director Hospice Operations Name Role Phone JAI CORTEZ CP Unavailable [...]
--- OUTSIDE RECORDS SUMMARY | 2016-08-17 00:28 | XMS REPORT ---
Author Author GLADYS AUSTIN [facility] eClinicalWorks Address Unknown Phone Unavailable Care Team Providers Care Corrosion Engineer Name Role Phone GLADYS AUSTIN CP Unavailable [...] Instructions Start Date End Date Status Dosage Permethrin [facility] [address]-40 5 % Externally x1 dose, repeat in 10 days Nov 20, 2014 apply to neck to feet before bedtime and shower in the morning Results No Known Results Summary Purpose eClinicalWorks Submission
--- OUTSIDE RECORDS SUMMARY | 2016-08-17 00:28 | XMS REPORT ---
Author Author JAI CORTEZ [facility] Address [address] [place] [address] Care Team Providers Care Rn Renal Name Role Phone JAI CORTEZ Unavailable PROBLEMS Type Condition ICD9-CM Code [id number] Code Onset Dates Condition Status SNOMED Code Problem GERD (gastroesophageal reflux disease) K21.9 Active 959456899 Problem History of seizures Z87.898 Active 704824429 Problem Hypothyroidism E03.9 Active 89740092 Problem History of MRSA infection Z86.14 Active 905117529 Problem Family history of diabetes mellitus Z83.3 Active 776304258 Problem Hx of migraines Z86.69 Active 154621088 Problem HTN (hypertension) I10 Active 57037647 Problem Irritable bowel syndrome with diarrhea K58.0 Active 581494074 Problem Lumbago with sciatica, right side M54.41 Active 989033279 Problem Anxiety state, unspecified F41.1 Active 099880095 Problem Depression, unspecified depression type F32.9 Active 84743954 Problem Lumbago with sciatica, left side M54.42 Active 688669457 Problem Schizoaffective disorder, unspecified type F25.9 Active 54002648 ALLERGIES Unknown Allergies SOCIAL HISTORY No smoking Hx information available PLAN OF CARE VITAL SIGNS MEDICATIONS Unknown Medications RESULTS No Results PROCEDURES No Known procedures IMMUNIZATIONS No Known Immunizations
--- OUTSIDE RECORDS SUMMARY | 2016-08-17 00:28 | XMS REPORT ---
Author Author GLADYS AUSTIN Organization [employer]Works Address Unknown Phone Unavailable Care Team Providers Care Bucket Pusher Name Role Phone GLADYS AUSTIN CP Unavailable [...]
--- OUTSIDE RECORDS SUMMARY | 2016-08-17 00:28 | XMS REPORT ---
Author FRANCHESCA Aguero [employer] Address Unknown Phone Unavailable Care Team Providers Care Engineering Mechanic Name Role Phone FRANCHESCA POWERS CP Unavailable Allergies, Adverse Reactions, Alerts Substance [...] history of diabetes mellitus Z83.3 Active Assessment Dental caries K02.9 Active Problem Hx of migraines Z86.69 Active Assessment Dental examination Z01.20 Active Problem HTN (hypertension) I10 Active Medications Medication Code System Code Instructions Start Date End Date Status Dosage Gabapentin [facility] [address]-31 800 MG Orally Three times a day 1 tablet Lisinopril [facility] [address]-17 10 mg Orally Once a day October 31, 2015 1 tablet Tramadol HCl [facility] [address]-49 50 mg Orally every 6 hours 1 Prozac [facility] [address]-12 40 mg Orally Once a day October 22, 2015 1 capsule in the morning Levothyroxine Sodium [facility] [address]-04 125 mcg Orally Once a day 1 tablet Abilify [facility] [address]-13 5 mg Orally Once a day Jan 14, 2016 1 tablet Procedures Procedure Coding System Code Date INTRAORL-PERIAPICAL 1 FILM 91754 CPT-4 D0220 Jan 15, 2016 EXTRAC ERUPTED TOOTH/EXPOSED ROOT CPT-4 D7140 Jan 15, 2016 LTD ORAL EVALUATION - PROBLEM FOCUS CPT-4 D0140 Jan 15, 2016 Vital Signs Date/Time: Jan 15, 2016 Blood Pressure Diastolic 76 mmHg Blood Pressure Systolic 109 mmHg Height 64 in Results No Known Results Summary Purpose eClinicalWorks Submission
--- OUTSIDE RECORDS SUMMARY | 2016-08-17 00:29 | XMS REPORT ---
Author Author BUTCH GARZA Organization eClinicalWorks Address Unknown Phone Unavailable Care Team Providers Care Dental Aide Name Role Phone BUTCH GARZA CP Unavailable [...] Depression, unspecified depression type F32.9 Active Assessment Anxiety state, unspecified F41.1 Active Assessment Schizoaffective disorder, unspecified type F25.9 Active Problem History of MRSA infection Z86.14 Active Problem Family history of diabetes mellitus Z83.3 Active Medications No Known Medications Procedures Procedure Coding System Code Date Psychotherapy, patient &/family, 30 minutes, established patient CPT-4 04214 Nov 28, 2015 Results No Known Results Summary Purpose eClinicalWorks Submission
--- OUTSIDE RECORDS SUMMARY | 2016-08-17 00:29 | XMS REPORT ---
Author Author JAI CORTEZ [facility] eClinicalWorks Address Unknown Phone Unavailable Care Team Providers Care Structural Metal Fabricator Apprentice Name Role Phone JAI CORTEZ CP Unavailable [...] Instructions Start Date End Date Status Dosage [facility] [address]-94 4 GM Orally Twice a day Dec 06, 2015 1 packet mixed with water or non-carbonated drink Results No Known Results Summary Purpose eClinicalWorks Submission
--- OUTSIDE RECORDS SUMMARY | 2016-08-17 00:29 | XMS REPORT ---
Author Author JAI CORTEZ [facility] eClinicalWorks Address Unknown Phone Unavailable Care Team Providers Care Warehouse Order Puller Name Role Phone JAI CORTEZ CP Unavailable [...] Instructions Start Date End Date Status Dosage Ventolin HFA [facility] [address]-47 108 (90 Base) MCG/ACT Inhalation every 4 hrs 2 puffs as needed Promethazine HCl [facility] [address]-65 25 MG Orally every 6 hours as needed October 03, 2015 1 tablet as needed Imitrex [facility] [address]-68 100 MG Orally 1 time per day and repeat once more after 2 hours if headache recurs PRN Nov 29, 2015 1 tablet Results No Known Results Summary Purpose eClinicalWorks Submission
--- OUTSIDE RECORDS SUMMARY | 2016-08-17 00:30 | XMS REPORT ---
Author KAYLEE Knutson eClinicalWorks Address Unknown Phone Unavailable Care Team Providers Care Guest Relation Officer Name Role Phone KAYLEE KENDALL CP Unavailable Allergies, Adverse Reactions, Alerts Substance [...] Problem UTI (urinary tract infection) 599.0 Active Assessment Lower abdominal pain R10.30 Active Problem Thoracic or lumbosacral neuritis or radiculitis, unspecified 724.4 Active Assessment Urinary tract infection, site not specified N39.0 Active Problem Acute bronchitis 466.0 Active Assessment Unprotected sex Z72.51 Active Problem Esophageal reflux 530.81 Active Assessment Hematuria, unspecified R31.9 Active Problem Pain in joint, pelvic region and thigh 719.45 Active Assessment Trichomoniasis A59.9 Active Problem Acute sinusitis, unspecified 461.9 Active Assessment Diarrhea R19.7 Active Problem Chronic back pain 724.5 Active Problem Palpitations 785.1 Active Problem Chest pain, unspecified 786.50 Active Medications Medication Code System Code Instructions Start Date End Date Status Dosage Tramadol HCl [facility] [address]-86 50 MG Orally Once a day at hs Apr 08, 2015 1 tablet as needed Flagyl [facility] [address]-95 500 MG Orally Once May 01, 2015 4 tablets orally today Topiramate [facility] [address]-72 100 MG Orally Twice a day 1 tablet Omeprazole [facility] [address]-98 40 MG Orally Once a day 1 capsule Ibuprofen [facility] [address]-41 800 MG Orally Three times a day 1 tablet Gabapentin [facility] [address]-08 800 MG Orally Three times a day 1 tablet Pyridium [facility] [address]-96 100 mg Orally Three times a day May 01, 2015 May 08, 2015 1 Tylenol 8 Hour [facility] [address]-72 650 MG Orally every 8 hrs 1 tablet as needed Macrobid [facility] [address]-22 100 MG Orally every 12 hrs May 01, 2015Apr 1 capsule with food Lisinopril-Hydrochlorothiazide [facility] [address]-81 20-12.5 MG Orally Once a day Jan 29, 2015 1 tablet Procedures Procedure Coding System Code Date URINE CULTURE/COLONY COUNT CPT-4 83704 May 01, 2015 Office Visit, Est Pt., Level 3 CPT-4 02175 May 01, 2015 URINALYSIS, AUTO, W/O SCOPE CPT-4 45405 May 01, 2015 ROCEPHIN 1 GM (IM) CPT-4 J0696 May 01, 2015 TRICHOMONAS ASSAY W/OPTIC CPT-4 60907 May 01, 2015 THER/PROPH/DIAG INJ, SC/IM CPT-4 87522 May 01, 2015 Vital Signs Date/Time: May 01, 2015 Temperature 98.7 F Weight 190.6 lbs Height 64 in BMI 32.71 Index Blood Pressure Diastolic 90 mmHg Blood Pressure Systolic 130 mmHg Cardiac Monitoring Heart Rate 64 bpm Results Name Result Date Reference Range Unit Abnormality Flag TRICHOMONAS (IN HOUSE) ----TRICHOMONAS positive [id number] ----Control + [id number] ----Lot # [id number] ----Exp date 20150501 UA LONG DIP (IN HOUSE) ----ARMANDO ngative 20150501 ----GLU NEGATIVE 20150501 ----SG <=1.005 20150501 ----KET negative 20150501 ----pH 5.5 20150501 ----Protein negative 20150501 ----BLO trace-intact 20150501 ----SUNNY 1+ 20150501 ----Color yellow [id number] ----Lot # [id number] ----Odor NONE 20150501 ----Exp date 20150501 ----URO 0.2 20150501 ----NIT positive 20150501 ----Clarity clear 20150501 ----Lot # [id number] ----Exp date 20150501 Summary Purpose eClinicalWorks Submission
== END 2016-07-16 23:24 | disposition home or self-care (01) ==
LOC: EDUNIT# 20:50 → ER 20:51
DX: R07.89 Other chest pain (principal); R51 Headache; R11.0 Nausea; M79.1 Myalgia; J44.9 Chronic obstructive pulmonary disease, unspecified; F17.210 Nicotine dependence, cigarettes, uncomplicated; Z79.899 Other long term (current) drug therapy
CPT/HCPCS: 36415; 71020; 80053; 80306; 83735; 83874; 84484; 85025; 85610; 85730; 86141; 93005; 93041; 94640; 96374

== ENCOUNTER 2017-03-01 01:06 | Emergency (ER) | payer MEDICAID ==
[~2017-03-01] VITALS: Ht 162.6 cm; Wt 97.5 kg
[~2017-03-01 01:06] MED LIST changes: +ONDA4TAB8 SL; +RISP0.2549 PO; -RISP0.2552 PO
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
[2017-03-01] MEDS ORDERED: RX-HYDROCODONE/APAP 5/325 MG #4 TAB PK PO PRN (02:15)
[2017-03-01] MEDS ORDERED: RX-CYCLOBENZAPRINE 10 MG (FLEXERIL) TAB PPK#3 PO STA (02:15)
[2017-03-01] MEDS ORDERED: RX-NAPROXEN (NAPROSYN) 250 MG TAB PPK#4 PO STA (02:15)
[2017-03-01] MEDS ORDERED: HYDR-3990 PO (02:19)
[2017-03-01] MEDS ORDERED: CYCL10TA9 PO (02:19)
[2017-03-01 02:29] VITALS: BP 115/77
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
== END 2017-03-01 02:22 | disposition home or self-care (01) ==
LOC: EDUNIT# 01:06 → ER 01:07
DX: S09.90XA Unspecified injury of head, initial encounter (principal); S32.020A Wedge compression fracture of second lumbar vertebra, initial encounter for closed fracture; S16.1XXA Strain of muscle, fascia and tendon at neck level, initial encounter; S00.83XA Contusion of other part of head, initial encounter; S50.02XA Contusion of left elbow, initial encounter; J44.9 Chronic obstructive pulmonary disease, unspecified; F03.90 Unspecified dementia, unspecified severity, without behavioral disturbance, psychotic disturbance, mood disturbance, and anxiety; G43.909 Migraine, unspecified, not intractable, without status migrainosus; K21.9 Gastro-esophageal reflux disease without esophagitis; E03.9 Hypothyroidism, unspecified; F41.9 Anxiety disorder, unspecified; F31.9 Bipolar disorder, unspecified; F20.9 Schizophrenia, unspecified; G40.909 Epilepsy, unspecified, not intractable, without status epilepticus; F17.210 Nicotine dependence, cigarettes, uncomplicated; Z91.19 Patient's noncompliance with other medical treatment and regimen; Z86.14 Personal history of Methicillin resistant Staphylococcus aureus infection; Z80.41 Family history of malignant neoplasm of ovary; Z80.49 Family history of malignant neoplasm of other genital organs; Z82.49 Family history of ischemic heart disease and other diseases of the circulatory system; Z87.440 Personal history of urinary (tract) infections; Z87.820 Personal history of traumatic brain injury; Z87.59 Personal history of other complications of pregnancy, childbirth and the puerperium; Z90.49 Acquired absence of other specified parts of digestive tract; Z90.710 Acquired absence of both cervix and uterus; Z98.51 Tubal ligation status; V57.6XXA Passenger in pick-up truck or van injured in collision with fixed or stationary object in traffic accident, initial encounter
CPT/HCPCS: 70450; 70486; 72125; 72128; 72131; 73080; 99283

== ENCOUNTER 2017-03-08 12:04 | Emergency (ER) | payer MEDICAID ==
[~2017-03-08] VITALS: Ht 162.6 cm; Wt 97.5 kg
[~2017-03-08 12:04] MED LIST changes: +CYCL10TA9 PO; +HYDR-3990 PO
[2017-03-08] MEDS ORDERED: HYDR-87 (13:05)
[2017-03-08] MEDS ORDERED: PRD50T (13:05)
[2017-03-08] MEDS ORDERED: KETOROLAC 60 MG/2 ML VIAL IM ONE (13:30)
[2017-03-08] MEDS ORDERED: ORPHENADRINE 60 MG/2 ML (NORFLEX) AMP IM ONE (13:30)
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
[2017-03-08] MEDS ORDERED: HYDR-3812 PO (14:26)
[2017-03-08 14:30] VITALS: BP 145/75
[2017-03-08] MEDS ORDERED: HYDROcodone/APAP 5 MG/325 MG (LORTAB) TAB PO ONE (14:30)
== END 2017-03-08 14:35 | disposition home or self-care (01) ==
LOC: EDUNIT# 12:04 → ER 12:07
DX: S32.010D Wedge compression fracture of first lumbar vertebra, subsequent encounter for fracture with routine healing (principal); Z77.22 Contact with and (suspected) exposure to environmental tobacco smoke (acute) (chronic)
CPT/HCPCS: 71100; 73030; 96372; 99284

== ENCOUNTER 2017-06-07 18:53 | Emergency (ER) | payer MEDICAID ==
[~2017-06-07] VITALS: Ht 162.6 cm; Wt 79.4 kg
[~2017-06-07 18:53] MED LIST changes: +ACHD5005 PO; +HYDR-87; +NAPR-1071 PO; -NAPR500T PO; +PRD50T
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
[2017-06-07] MEDS ORDERED: PRD20T PO (20:05)
[2017-06-07] MEDS ORDERED: PANT40TA2 PO (20:05)
[2017-06-07 20:07] VITALS: BP 104/68
== END 2017-06-07 20:07 | disposition home or self-care (01) ==
LOC: EDUNIT# 18:53 → ER 18:56
DX: M54.12 Radiculopathy, cervical region (principal); J44.9 Chronic obstructive pulmonary disease, unspecified; I10 Essential (primary) hypertension; F03.90 Unspecified dementia, unspecified severity, without behavioral disturbance, psychotic disturbance, mood disturbance, and anxiety; G43.909 Migraine, unspecified, not intractable, without status migrainosus; G40.909 Epilepsy, unspecified, not intractable, without status epilepticus; K21.9 Gastro-esophageal reflux disease without esophagitis; E03.9 Hypothyroidism, unspecified; F41.9 Anxiety disorder, unspecified; F31.9 Bipolar disorder, unspecified; F20.9 Schizophrenia, unspecified; Z82.49 Family history of ischemic heart disease and other diseases of the circulatory system; Z80.49 Family history of malignant neoplasm of other genital organs; Z80.41 Family history of malignant neoplasm of ovary; Z86.14 Personal history of Methicillin resistant Staphylococcus aureus infection; Z87.440 Personal history of urinary (tract) infections; Z87.820 Personal history of traumatic brain injury; Z77.22 Contact with and (suspected) exposure to environmental tobacco smoke (acute) (chronic); Z88.2 Allergy status to sulfonamides; Z88.0 Allergy status to penicillin; Z90.49 Acquired absence of other specified parts of digestive tract; Z87.59 Personal history of other complications of pregnancy, childbirth and the puerperium; Z90.710 Acquired absence of both cervix and uterus; Z98.51 Tubal ligation status; Z87.01 Personal history of pneumonia (recurrent); Z88.1 Allergy status to other antibiotic agents; Z88.8 Allergy status to other drugs, medicaments and biological substances
CPT/HCPCS: 72125

== ENCOUNTER 2017-09-17 14:51 | Emergency (ER) | payer MEDICAID ==
[~2017-09-17] VITALS: Ht 162.6 cm; Wt 81.6 kg
[~2017-09-17 14:51] MED LIST changes: +PANT40TA2 PO
[2017-09-17 15:58] VITALS: BP 125/103
[2017-09-18] MEDS ORDERED: ONDA8TAB9 PO (10:47)
[2017-09-18] MEDS ORDERED: CEPH-507 PO (10:47)
== END 2017-09-17 15:58 | disposition left against medical advice (07) ==
LOC: EDUNIT# 14:51 → ER 14:54
DX: R20.0 Anesthesia of skin (principal); R06.02 Shortness of breath
CPT/HCPCS: 99282

== ENCOUNTER 2017-09-18 10:08 | Emergency (ER) | payer MEDICAID ==
[~2017-09-18] VITALS: Ht 162.6 cm; Wt 81.6 kg
[2017-09-18] MEDS ORDERED: KETOROLAC 30 MG/ML VIAL IVP ONE (10:45)
[2017-09-18] MEDS ORDERED: ONDANSETRON 4 MG/2 ML (SDV) Z0FRAN IVP ONE (10:45)
[2017-09-18] MEDS ORDERED: CEPH-507 PO (10:47)
[2017-09-18] MEDS ORDERED: ONDA8TAB9 PO (10:47)
--- NOTE | 2017-09-18 10:47 | ED General ---
General Chief Complaint: General Problems/Pain Stated Complaint: MULTIPLE COMPLAINTS Nursing Triage Note: TO ROOM PER [facility] WAS IN ED YESTERDAY LWBS. C/O NUMB FEEING ON L SIDE OF FACE FOR 2 DAYS AND IN ARM.ALOW C/O SORE THROAT. Nursing Sepsis Screen: No Definite Risk Source of Information: Patient Exam Limitations: No Limitations History of Present Illness Date Seen by Provider: Sep 18, 2017 Time Seen by Provider: 10:44 Initial Comments To ER with reports of left-sided facial pain, numbness on the left side of the face and left arm, sore throat, nausea for 2-3 days. She was here yesterday but left without being seen. Timing/Duration: 1-2 Days Severity: Moderate Allergies and Home Medications Allergies Coded Allergies: Sulfa (Sulfonamide Antibiotics) (Unverified Allergy, Severe, 11/30/06) PT STATES SHE'S "DEATHLY" ALLERGIC TO SULFA amoxicillin (Unverified Allergy, Severe, 11/30/06) Penicillins (Verified Allergy, Unknown, 12/22/06) moxifloxacin (Verified Allergy, Unknown, "HIGH FEVER, DIDN'T WAKE UP", CAN TAKE LEVAQUIN W/O PROBLEM, 12/22/06) Uncoded Allergies: AVALOX (Allergy, Intermediate, 11/30/06) FEVER AND VOMITTING Home Medications Albuterol Sulfate 18 Gm Hfa.aer.ad, 2 PUFF IH Q4H PRN for SHORTNESS OF BREATH, ( Reported) Albuterol Sulfate 2.5 Mg/3 Ml Vial.neb, 2.5 MG IH Q4H PRN for SHORTNESS OF BREATH Prescribed by: LIZBETH COFFMAN on 02/26/16 1403 Alprazolam 0.5 Mg Tablet, 0.5 MG PO BID PRN for ANXIETY, (Reported) Brexpiprazole 0.5 Mg Tablet, 0.5 MG PO UD, (Reported) FILLED 02/19/16 #30 1 TAB PO QD X 10 DAYS; THEN 2 TABS QD THEREAFTER Cephalexin 500 Mg Capsule, 500 MG PO TID Prescribed by: BUSHRA MANCILLA on 09/18/17 1047 Cyclobenzaprine HCl 10 Mg Tablet, 10 MG PO Q8H Prescribed by: BEAR KRISHNAMURTHY on 03/01/17 0219 Fluoxetine HCl 40 Mg Capsule, 40 MG PO DAILY, (Reported) Gabapentin 800 Mg Tablet, 800 MG PO TID, (Reported) Hydrocodone Bit/Acetaminophen 1 Each Tablet, 1-2 EACH PO Q6H PRN for PAIN Prescribed by: PAVEL JOY on 03/08/17 1426 Hydrocodone/Ibuprofen 1 Each Tablet, 1 EACH PO Q 4 HOURS Prescribed by: BEAR KRISHNAMURTHY on 03/01/17 0219 Hydroxyzine Pamoate 50 Mg Capsule, 50 MG PO BID PRN for ANXIETY, (Reported) Ibuprofen 800 Mg Tablet, 800 MG PO TID PRN for PAIN, (Reported) Ivermectin 3 Mg Tablet, 3 MG PO ONCE Prescribed by: PAVEL JOY on 03/01/16 1230 Levothyroxine Sodium 125 Mcg Tablet, 125 MCG PO DAILY, (Reported) Lisinopril/Hydrochlorothiazide 1 Each Tablet, 1 TAB PO DAILY, (Reported) Omeprazole 40 Mg Capsule.dr, 40 MG PO DAILY, (Reported) Ondansetron 4 Mg Tab.rapdis, 4 MG SL Q4H Prescribed by: PAVEL JOY on 07/16/16 2311 Ondansetron 8 Mg Tab.rapdis, 8 MG PO Q6H PRN for NAUSEA/VOMITING-1ST LINE Prescribed by: BUSHRA MANCILLA on 09/18/17 1047 Pantoprazole Sodium 40 Mg Tablet.dr, 40 MG PO DAILY Prescribed by: BUSHRA MANCILLA on 06/07/172004 Risperidone 0.25 Mg Tab.rapdis, 0.25 MG PO HS PRN for BAD THOUGHTS , (Reported) Topiramate 100 Mg Tablet, 150 MG PO BID, (Reported) TAKES 1 & 1/2 OF A (100 MG) TABLETS Tramadol HCl 50 Mg Tablet, 50 MG PO Q6H PRN for PAIN, (Reported) Trazodone HCl 50 Mg Tablet, 50-100 MG PO HS PRN for SLEEP, (Reported) TAKES 1-2 (50 MG) TABLETS Patient Home Medication List Home Medication List Reviewed: Yes Review of Systems Constitutional: see HPI EENTM: see HPI, ear pain Respiratory: no symptoms reported Cardiovascular: no symptoms reported Gastrointestinal: nausea, vomiting Genitourinary: no symptoms reported Musculoskeletal: no symptoms reported Skin: no symptoms reported Psychiatric/Neurological: No Symptoms Reported Hematologic/Lymphatic: No Symptoms Reported Past Gxxgjdj-Xrmbmq-Fweokm Hx Patient Social History Alcohol Use: Denies Use Recreational Drug Use: No Type Used: Cigarettes 2nd Hand Smoke Exposure: Yes Recent Foreign Travel: No Contact w/Someone Who Travel: No Recent Infectious Disease Expo: No Recent Hopitalizations: No Immunizations Up To Date Tetanus Booster (TDap): More than 5yrs PED Vaccines UTD: No Date of Pneumonia Vaccine: Nov 26, 1999 Date of Influenza Vaccine: Feb 26, 2016 Seasonal Allergies Seasonal Allergies: No Past Medical History Surgeries: Yes (ectopic ) Appendectomy, Section, Gallbladder, Hysterectomy, Oophorectomy, Tubal Ligation Respiratory: Yes Pneumonia, COPD Currently Using CPAP: No Currently Using BIPAP: No Cardiac: Yes Hypertension Neurological: Yes (CHRONIC HEADACHES) Dementia, Headaches /Migraines, Seizure Disorder, Traumatic Brain Injury 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 Disorders: No Female 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 Disorders: Denies 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 Sexually Transmitted Disease: No HIV/AIDS: No Genitourinary: Yes Renal Failure, UTI-Chronic Gastrointestinal: Yes Gastroesophageal Reflux Musculoskeletal: Yes (L2 COMPRESSION FX 03/01/17) Degenerate Disk Disease, Fibromyalgia, Back Injury, Chronic Back Pain, Fractures Endocrine: Yes Hypothyroidsim Loss of Vision: Denies Hearing Impairment: Denies Cancer: No Psychosocial: Yes Anxiety, Bipolar, Schizophrenia, Depression Integumentary: Yes (MRSA) Blood Disorders: No Adverse Reaction/Blood Tranf: No Family Medical History Arthritis 19 MOTHER GRANDMOTHER Cataracts GRANDMOTHER GRANDMOTHER Congenital heart disease 19 FATHER Diabetes mellitus 19 MOTHER FH: defects GRAND-DAUGHTER (3 LUNGS, 36 FINGER AND TOES) FH: brain aneurysm FH: irritable bowel syndrome 19 MOTHER FH: ovarian cancer PATERNAL AUNTS FH: pneumonia 19 MOTHER FH: uterine cancer PATERNAL AUNTS Glaucoma GRANDMOTHER GRANDMOTHER Kidney infection 19 FATHER Visual disorder GRANDMOTHER GRANDMOTHER Diabetes, Psychiatric Problems, Renal Disease, Stroke, Vascular Disease Physical Exam Vital Signs Vital Signs - First Documented 09/18/17 09/18/17 10:08 11:07 Temp 98.6 Pulse 62 Resp 18 B/P (MAP) 128/106 (113) Pulse Ox 98 O2 Delivery Room Air Capillary Refill : Less Than 3 Seconds General Appearance: No Apparent Distress, WD/WN Eyes: Bilateral Eye Normal Inspection, Bilateral Eye PERRL, Bilateral Eye EOMI HEENT: PERRL/EOMI, Other (the left tympanic membrane is slightly erythematous. There is a single left submandibular lymph node palpable.) Neck: Full Range of Motion, Normal Inspection Respiratory: No Accessory Muscle Use, No Respiratory Distress Cardiovascular: Regular Rate, Rhythm, Normal Peripheral Pulses Gastrointestinal: Normal Bowel Sounds, Non Tender, Soft Extremity: Normal Capillary Refill, Normal Inspection Neurologic/Psychiatric: Alert, Oriented x3, No Motor/Sensory Deficits Skin: Normal Color, Warm/Dry Progress/Results/Core Measures Suspected Sepsis Recent Fever Within 48 Hours: No Infection Criteria Present: Suspected New Infection New/Unexplained Altered Menta: No Sepsis Screen: No Definite Risk SIRS Temperature:98.6 Pulse: 62 Respiratory Rate: 18 Blood Pressure 128 /106 Mean: 113 Results/Orders My Orders Vital Signs/I&O Capillary Refill : Less Than 3 Seconds Blood Pressure Mean: 113 Departure Impression Primary Impression: Left otitis media Additional Impression: left dental pain Disposition: 01 HOME, SELF-CARE Condition: Stable Departure-Patient Inst. Decision time for Depature: 10:46 Referrals: JOSE MCLEAN MD (PCP) Primary Care Physician [facility] (Family) Primary Care Physician Patient Instructions: Dental Pain (DC), Ear Infections (Otitis Media) Add. Discharge Instructions: 1. Antibiotics as directed. Nausea medication as directed. Return to ER for any concerns. Follow-up with her doctor next week All discharge instructions reviewed with patient and/or family. Voiced understanding. Scripts Ondansetron (Zofran Odt) 8 Mg Tab.rapdis 8 MG PO Q6H PRN for NAUSEA/VOMITING-1ST LINE, #10 TAB Prov: BUSHRA MANCILLA HELIARC WELDER 09/18/17 Cephalexin (Keflex) 500 Mg Capsule 500 MG PO TID, #21 CAP Prov: BUSHRA MANCILLA HELIARC WELDER 09/18/17 BUSHRA MANCILLA HELIARC WELDER Sep 18, 2017 10:47
[2017-09-18 10:48] LABS: BASOPHILS # (AUTO) 0.1 10^3/uL (0.0-0.1); BASOPHILS % (AUTO) 1 % (0-10); EOSINOPHILS # (AUTO) 0.7 10^3/uL (0.0-0.3); EOSINOPHILS % (AUTO) 8 % (0-10); HEMATOCRIT 47 % (35-52); HEMOGLOBIN 15.6 G/DL (11.5-16.0); LYMPHOCYTES # (AUTO) 2.5 X 10^3 (1.0-4.0); LYMPHOCYTES % (AUTO) 29 % (12-44); MEAN CORPUSCULAR HEMOGLOBIN 31 PG (25-34); MEAN CORPUSCULAR HGB CONC 33 G/DL (32-36); MEAN CORPUSCULAR VOLUME 92 FL (80-99); MEAN PLATELET VOLUME 9.2 FL (7.4-10.4); MONOCYTES # (AUTO) 0.7 X 10^3 (0.0-1.0); MONOCYTES % (AUTO) 8 % (0-12); NEUTROPHILS # (AUTO) 4.7 X 10^3 (1.8-7.8); NEUTROPHILS % (AUTO) 54 % (42-75); PLATELET COUNT 347 10^3/uL (130-400); RED BLOOD COUNT 5.07 10^6/uL (4.35-5.85); RED CELL DISTRIBUTION WIDTH 13.9 % (10.0-14.5); WHITE BLOOD COUNT 8.7 10^3/uL (4.3-11.0)
[2017-09-18 11:01] LABS: ALANINE AMINOTRANSFERASE 13 U/L (0-55); ALBUMIN 3.9 GM/DL (3.2-4.5); ALKALINE PHOSPHATASE 120 U/L (40-136); BILIRUBIN,TOTAL 0.3 MG/DL (0.1-1.0); BUN/CREATININE RATIO 7; CALCIUM 9.2 MG/DL (8.5-10.1); CARBON DIOXIDE 21 MMOL/L (21-32); CHLORIDE 107 MMOL/L (98-107); CREATININE SERUM 0.76 MG/DL (0.60-1.30); GFR ESTIMATED > 60; GLUCOSE 85 MG/DL (70-105); POTASSIUM 3.9 MMOL/L (3.6-5.0); SODIUM 138 MMOL/L (135-145); TOTAL PROTEIN 7.4 GM/DL (6.4-8.2)
[2017-09-18 11:07] VITALS: BP 128/106
== END 2017-09-18 11:15 | disposition home or self-care (01) ==
LOC: EDUNIT# 10:08 → ER 10:09
DX: H66.92 Otitis media, unspecified, left ear (principal); J44.9 Chronic obstructive pulmonary disease, unspecified; I10 Essential (primary) hypertension; F03.90 Unspecified dementia, unspecified severity, without behavioral disturbance, psychotic disturbance, mood disturbance, and anxiety; K21.9 Gastro-esophageal reflux disease without esophagitis; E03.9 Hypothyroidism, unspecified; F41.9 Anxiety disorder, unspecified; F31.9 Bipolar disorder, unspecified; F20.9 Schizophrenia, unspecified; G43.909 Migraine, unspecified, not intractable, without status migrainosus; G40.909 Epilepsy, unspecified, not intractable, without status epilepticus; Z77.22 Contact with and (suspected) exposure to environmental tobacco smoke (acute) (chronic); Z87.820 Personal history of traumatic brain injury; Z90.49 Acquired absence of other specified parts of digestive tract; Z87.59 Personal history of other complications of pregnancy, childbirth and the puerperium; Z90.710 Acquired absence of both cervix and uterus; Z98.51 Tubal ligation status; Z87.81 Personal history of (healed) traumatic fracture; Z86.14 Personal history of Methicillin resistant Staphylococcus aureus infection; Z88.2 Allergy status to sulfonamides; Z88.1 Allergy status to other antibiotic agents; Z88.0 Allergy status to penicillin; Z88.8 Allergy status to other drugs, medicaments and biological substances
CPT/HCPCS: 36415; 80053; 85025; 93005; 96374; 96375

== ENCOUNTER 2017-12-21 19:51 | Emergency (ER) | payer MEDICAID ==
[~2017-12-21] VITALS: Ht 162.6 cm; Wt 78.9 kg
[~2017-12-21 19:51] MED LIST changes: +HYDR-4226 PO; -HYDR-757 PO; +ONDA8TAB9 PO; +TRAZ-189 PO; +TRAZ-190 PO; -TRAZ-28 PO; -TRAZ100T92 PO
[2017-12-21] MEDS ORDERED: ASPIRIN 81 MG CHEW (CHILDREN'S ASA) PO ONE ×2 (20:15)
[2017-12-21 20:22] LABS: BASOPHILS # (AUTO) 0.1 10^3/uL (0.0-0.1); BASOPHILS % (AUTO) 1 % (0-10); EOSINOPHILS # (AUTO) 0.3 10^3/uL (0.0-0.3); EOSINOPHILS % (AUTO) 3 % (0-10); HEMATOCRIT 44 % (35-52); HEMOGLOBIN 14.8 G/DL (11.5-16.0); LYMPHOCYTES # (AUTO) 3.7 X 10^3 (1.0-4.0); LYMPHOCYTES % (AUTO) 31 % (12-44); MEAN CORPUSCULAR HEMOGLOBIN 32 PG (25-34); MEAN CORPUSCULAR HGB CONC 34 G/DL (32-36); MEAN CORPUSCULAR VOLUME 93 FL (80-99); MEAN PLATELET VOLUME 9.1 FL (7.4-10.4); MONOCYTES # (AUTO) 1.2 X 10^3 (0.0-1.0); MONOCYTES % (AUTO) 10 % (0-12); NEUTROPHILS # (AUTO) 6.7 X 10^3 (1.8-7.8); NEUTROPHILS % (AUTO) 56 % (42-75); PLATELET COUNT 362 10^3/uL (130-400); RED CELL DISTRIBUTION WIDTH 14.9 % (10.0-14.5)
[2017-12-21 20:30] LABS: INR 0.9 (0.8-1.4); PROTHROMBIN TIME PATIENT 11.8 SEC (12.2-14.7)
[2017-12-21 20:36] LABS: AMPHETAMINE SCREEN, URINE POSITIVE (NEGATIVE); BARBITURATE SCREEN URINE NEGATIVE (NEGATIVE); BENZODIAZEPINES SCREEN URINE NEGATIVE (NEGATIVE); CANNABINOID SCREEN, URINE NEGATIVE (NEGATIVE); COCAINE SCREEN URINE NEGATIVE (NEGATIVE); METHADONE STAT NEGATIVE (NEGATIVE); METHAMPHETAMINE SCREEN URINE S POSITIVE (NEGATIVE); OPIATE SCREEN URINE NEGATIVE (NEGATIVE); OXYCODONE STAT NEGATIVE (NEGATIVE); PROPOXYPHENE STAT NEGATIVE (NEGATIVE); TRICYCLIC ANTIDEPRESSANTS SCRE NEGATIVE (NEGATIVE)
[2017-12-21 20:37] LABS: ALANINE AMINOTRANSFERASE 16 U/L (0-55); ALBUMIN 4.1 GM/DL (3.2-4.5); ALKALINE PHOSPHATASE 103 U/L (40-136); AMYLASE 60 U/L (25-125); BILIRUBIN,TOTAL 0.5 MG/DL (0.1-1.0); BUN/CREATININE RATIO 11; CALCIUM 9.6 MG/DL (8.5-10.1); CARBON DIOXIDE 21 MMOL/L (21-32); CHLORIDE 104 MMOL/L (98-107); CREATINE KINASE 131 U/L (29-168); CREATININE SERUM 0.82 MG/DL (0.60-1.30); GFR ESTIMATED > 60; GLUCOSE 97 MG/DL (70-105); LIPASE 29 U/L (8-78); MAGNESIUM 2.4 MG/DL (1.8-2.4); POTASSIUM 3.5 MMOL/L (3.6-5.0); SODIUM 138 MMOL/L (135-145); TOTAL PROTEIN 7.6 GM/DL (6.4-8.2)
[2017-12-21 20:45] LABS: MYOGLOBIN SERUM 34.2 NG/ML (10.0-92.0)
[2017-12-21] MEDS ORDERED: NS 250 ML (IVPB) BAG IV ONE (21:00)
[2017-12-21] MEDS ORDERED: IOHEXOL 350 MG/ML 150 ML (OMNIPAQUE 350) VIAL IV ONE (21:00)
--- NOTE | 2017-12-21 21:11 | Diagnostic Imaging Report ---
EXAMINATION: Chest radiograph, portable AP view. DATE: December 21, 2017 at 2033 hours. INDICATION: 47-year-old female, chest pain. COMPARISON: July 16, 2016. FINDINGS: Heart size and mediastinal contours are unremarkable. There is no identified pneumothorax. There is no large pleural effusion. There is no identified focal airspace consolidation. IMPRESSION: No identified acute cardiopulmonary abnormality. Dictated by: Dictated on workstation # [id number]
--- NOTE | 2017-12-21 22:07 | Diagnostic Imaging Report ---
PROCEDURE: CT angiography of the chest with contrast. TECHNIQUE: Multiple contiguous axial images were obtained through the chest after uneventful bolus administration of intravenous contrast. Reconstructed CTA MIP acquisitions were also performed. DATE: December 21, 2017. COMPARISON: Chest radiograph December 21, 2017. CT thoracic and lumbar spine March 01, 2017. INDICATION: 47-year-old female, chest pain and left shoulder pain. Shortness of breath. FINDINGS: There is a 4 mm noncalcified right upper lobe pulmonary nodule on axial image 73. There is no additional identified pulmonary nodule. There is no identified lung mass. There is no focal airspace consolidation. There is no pneumothorax. There is no pleural effusion. The central airways are patent. The thyroid gland is diffusely heterogeneous and enlarged. There is no identified pulmonary embolus. The main pulmonary artery is normal in caliber. The heart is not enlarged. There is no pericardial effusion. There is incidental note of direct origin of the left vertebral artery off the aortic arch. There is no abnormally enlarged mediastinal, hilar, or axillary lymph node which meets CT size criteria for adenopathy. The patient is status post cholecystectomy. Additional limited evaluation of the visualized portions of the upper abdomen is unremarkable. There is a chronic appearing displaced fracture of the L2 vertebral body. There are displaced segments of the anterior aspect of the L2 vertebral body which appear increasingly displaced compared to March 01, 2017. The fracture involves the anterior vertebral body margin and superior endplate. There is vertebral body height loss centrally and anteriorly estimated at approximately 50%. Visualized portions of the posterior elements. There is abnormal high attenuation extending posterior to the L1-L2 disc space likely reflecting a disc extrusion or other abnormal high attenuation material measuring approximately 12 x 5 mm in size on sagittal image 69. There does appear to be at least moderate spinal stenosis at this level. IMPRESSION: CT CHEST. 1. No identified pulmonary embolus or other acute cardiopulmonary abnormality. 2. Diffusely heterogeneous and enlarged thyroid gland. 3. 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 Dictated by: Dictated on workstation # [id number]
--- NOTE | 2017-12-21 22:20 | ED General ---
General Chief Complaint: Chest Pain Stated Complaint: CP, L SHOULDER PAIN Nursing Triage Note: PT PRESENTS TO ER WITH COMPLAINT CHEST PAIN FOR THE LAST MONTH. Nursing Sepsis Screen: No Definite Risk Source of Information: Patient History of Present Illness Date Seen by Provider: Dec 21, 2017 Time Seen by Provider: 20:00 Initial Comments PT ARRIVES VIA POV C/O CHEST PAIN X 1 MONTH STATES SHE GETS DIZZY, CLAMMY, SWEATY, HAS TROUBLE BREATHING, GETS CHEST PAIN, LEFT SHOULDER PAIN, AND HER LEFT SIDE GETS NUMB ( ONLY HER LEFT HAND AND HER LEFT FOOT) STATES "IT SO BAD I GET DIZZY AND CLAMMY AND I FEEL LIKE I'M GOING TO PASS OUT" --REPEATS THIS SEVERAL TIMES SYMPTOMS ARE NO DIFFERENT TODAY IN ANY WAY, AND ARE NOT OCCURRING NOW HAS NOT SOUGHT CARE UNTIL TODAY PT ALSO HAS A MULTITUDE OF OTHER COMPLAINTS, ALL ONGOING ISSUES FOR SOME TIME, WHICH SHE ALSO HAS NOT SOUGHT CARE FOR AND ARE NO DIFFERENT TODAY: PT STATES SHE "HAS HAD ALOT OF STRESS BUILDING UP--MY MOM'S ON DIALYSIS AND MY SON GOT HURT AT WORK" --THESE ARE NOT NEW ISSUES PT ALSO C/O "EXTREME THIRST" C/O NAUSEA, NO VOMITINBG C/O FATIGUE C/O "INDIGESTION AND HEARTBURN" C/O "LEGS SWELLIN' AND HURTIN'" STATES "MY LIVER'S BEEN HURTIN' TOO AND GIVIN' ME PROBLEMS--IT SWELLS UP WITHIN AN HOUR AND IT WILL DROP ME TO MY KNEES AND THEN IT WILL GO BACK DOWN" PT STATES SHE HAS NOT TAKEN HER BLOOD PRESSURE MEDICATIONS FOR 3-4 MONTHS-- STATES "I WAS HOMELESS AND DIDN'T HAVE A VEHICLE" STATES SHE IS CURRENTLY LIVING IN [place], [place] "WITH MY STEP-DAD, BUT HE'S NOT REALLY MY STEP DAD" FOR THE LAST 2 MONTHS--STILL DOES NOT GIVE A REASON WHY SHE HAS NOT STARTED TAKING HER BLOOD PRESSURE MEDICATIONS. GOES TO [facility] AND THEY ASSIST HER WITH HER MEDICATIONS, AND WILL ALSO ASSIST WITH TRANSPORTATION TO OFFICE VISITS, BUT SHE HAS NOT ATTEMPTED TO DO THIS. STATES SHE IS SUPPOSED TO BE ON : -LISINOPRIL/HCTZ--HAS BEEN OUT FOR 3-4 MONTHS -OMEPRAZOLE--HAS BEEN OUT FOR 3-4 MONTHS -IBUPROFEN 800 MG--HAS BEEN OUT FOR 3-4 MONTHS -ALSO HAS BEEN OUT OF HER INHALERS FOR A FEW MONTHS CLAIMS SHE IS STILL TAKING THYROID MEDICATION AND GABAPENTIN PCP: [facility], DR. MCLEAN--HAS AN APPOINTMENT OCT 2 Allergies and Home Medications Allergies Coded Allergies: Sulfa (Sulfonamide Antibiotics) (Unverified Allergy, Severe, 11/30/06) PT STATES SHE'S "DEATHLY" ALLERGIC TO SULFA amoxicillin (Unverified Allergy, Severe, 11/30/06) Penicillins (Verified Allergy, Unknown, 12/22/06) moxifloxacin (Verified Allergy, Unknown, "HIGH FEVER, DIDN'T WAKE UP", CAN TAKE LEVAQUIN W/O PROBLEM, 12/22/06) Uncoded Allergies: AVALOX (Allergy, Intermediate, 11/30/06) FEVER AND VOMITTING Home Medications Albuterol Sulfate 18 Gm Hfa.aer.ad, 2 PUFF IH Q4H PRN for SHORTNESS OF BREATH, ( Reported) Albuterol Sulfate 2.5 Mg/3 Ml Vial.neb, 2.5 MG IH Q4H PRN for SHORTNESS OF BREATH Prescribed by: LIZBETH COFFMAN on 02/26/16 1403 Alprazolam 0.5 Mg Tablet, 0.5 MG PO BID PRN for ANXIETY, (Reported) Brexpiprazole 0.5 Mg Tablet, 0.5 MG PO UD, (Reported) FILLED 02/19/16 #30 1 TAB PO QD X 10 DAYS; THEN 2 TABS QD THEREAFTER Cephalexin 500 Mg Capsule, 500 MG PO TID Prescribed by: BUSHRA MANCILLA on 09/18/17 1047 Cyclobenzaprine HCl 10 Mg Tablet, 10 MG PO Q8H Prescribed by: BEAR KRISHNAMURTHY on 03/01/17 021 Fluoxetine HCl 40 Mg Capsule, 40 MG PO DAILY, (Reported) Gabapentin 800 Mg Tablet, 800 MG PO TID, (Reported) Hydrocodone Bit/Acetaminophen 1 Each Tablet, 1-2 EACH PO Q6H PRN for PAIN Prescribed by: PAVEL JOY on 03/08/17 1426 Hydrocodone/Ibuprofen 1 Each Tablet, 1 EACH PO Q 4 HOURS Prescribed by: BEAR KRISHNAMURTHY on 03/01/17 021 Hydroxyzine Pamoate 50 Mg Capsule, 50 MG PO BID PRN for ANXIETY, (Reported) Ibuprofen 800 Mg Tablet, 800 MG PO TID PRN for PAIN, (Reported) Ivermectin 3 Mg Tablet, 3 MG PO ONCE Prescribed by: PAVEL JOY on 03/01/16 1230 Levothyroxine Sodium 125 Mcg Tablet, 125 MCG PO DAILY, (Reported) Lisinopril/Hydrochlorothiazide 1 Each Tablet, 1 TAB PO DAILY, (Reported) Omeprazole 40 Mg Capsule.dr, 40 MG PO DAILY, (Reported) Ondansetron 4 Mg Tab.rapdis, 4 MG SL Q4H Prescribed by: PAVEL JOY on 07/16/16 2311 Ondansetron 8 Mg Tab.rapdis, 8 MG PO Q6H PRN for NAUSEA/VOMITING-1ST LINE Prescribed by: BUSHRA MANCILLA on 09/18/17 1047 Pantoprazole Sodium 40 Mg Tablet.dr, 40 MG PO DAILY Prescribed by: BUSHRA MANCILLA on 06/07/172004 Risperidone 0.25 Mg Tab.rapdis, 0.25 MG PO HS PRN for BAD THOUGHTS , (Reported) Topiramate 100 Mg Tablet, 150 MG PO BID, (Reported) TAKES 1 & 1/2 OF A (100 MG) TABLETS Tramadol HCl 50 Mg Tablet, 50 MG PO Q6H PRN for PAIN, (Reported) Trazodone HCl 50 Mg Tablet, 50-100 MG PO HS PRN for SLEEP, (Reported) TAKES 1-2 (50 MG) TABLETS Patient Home Medication List Home Medication List Reviewed: Yes Review of Systems Review of Systems Constitutional: see HPI, diaphoresis, dizziness EENTM: no symptoms reported Respiratory: see HPI, short of breath Cardiovascular: see HPI, chest pain, edema; No palpitations, No syncope Gastrointestinal: see HPI, abdominal pain; No constipation, No diarrhea; nausea ; No vomiting Genitourinary: no symptoms reported Musculoskeletal: see HPI Skin: no symptoms reported Psychiatric/Neurological: See HPI Hematologic/Lymphatic: No Symptoms Reported Immunological/Allergic: no symptoms reported Past Bmdeuyp-Rufnun-Unhszj Hx Patient Social History Alcohol Use: Occasionally Uses (HISTORY OF ABUSE--STATES SHE USED TO DRINK "ALOT--TO THE POINT OF PASSING OUT" ON A REGULAR BASIS, CLAIMS NO RECENT USE, PER PT ON 12/21/17) Recreational Drug Use: Yes (THC, + IV METH) Drug of Choice: THC, + IV METH Smoking Status: Current Everyday Smoker (2 PPD) Type Used: Cigarettes (2 PPD) 2nd Hand Smoke Exposure: Yes Recent Foreign Travel: No Contact w/Someone Who Travel: No Recent Infectious Disease Expo: No Recent Hopitalizations: No Immunizations Up To Date Tetanus Booster (TDap): More than 5yrs PED Vaccines UTD: No Date of Pneumonia Vaccine: Nov 26, 1999 Date of Influenza Vaccine: Feb 26, 2016 Seasonal Allergies Seasonal Allergies: No Past Medical History Surgeries: Yes (ECTOPIC PROEGNANCY) Appendectomy, Section, Gallbladder, Hysterectomy, Oophorectomy, Tubal Ligation Respiratory: Yes Pneumonia, COPD Currently Using CPAP: No Currently Using BIPAP: No Cardiac: Yes Hypertension Neurological: Yes (CHRONIC HEADACHES) Dementia, Headaches /Migraines, Seizure Disorder, Traumatic Brain Injury 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 Disorders: No Female 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 Disorders: 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, 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 Sexually Transmitted Disease: No HIV/AIDS: No Genitourinary: Yes Renal Failure, UTI-Chronic Gastrointestinal: Yes (ALCOHOLISM) Gastroesophageal Reflux Musculoskeletal: Yes (L2 COMPRESSION FX 03/01/17; CHRONIC NECK AND BACK PAIN ) Degenerate Disk Disease, Fibromyalgia, Back Injury, Chronic Back Pain, Fractures Endocrine: Yes Hypothyroidsim Loss of Vision: Denies Hearing Impairment: Denies Cancer: No Psychosocial: Yes Anxiety, Bipolar, Schizophrenia, Depression Integumentary: Yes (MRSA) Blood Disorders: No Adverse Reaction/Blood Tranf: No Family Medical History Arthritis 19 MOTHER GRANDMOTHER Cataracts GRANDMOTHER GRANDMOTHER Congenital heart disease 19 FATHER Diabetes mellitus 19 MOTHER FH: defects GRAND-DAUGHTER (3 LUNGS, 36 FINGER AND TOES) FH: brain aneurysm FH: irritable bowel syndrome 19 MOTHER FH: ovarian cancer PATERNAL AUNTS FH: pneumonia 19 MOTHER FH: uterine cancer PATERNAL AUNTS Glaucoma GRANDMOTHER GRANDMOTHER Kidney infection 19 FATHER Visual disorder GRANDMOTHER GRANDMOTHER Diabetes, Psychiatric Problems, Renal Disease, Stroke, Vascular Disease Physical Exam Vital Signs Capillary Refill : Less Than 3 Seconds Height, Weight, BMI Height: 5'4.00" Weight: 174lbs. 0oz. [id number]; 35.4 BMI Method:Stated General Appearance: No Apparent Distress, WD/WN, Other (VERY DRAMATIC, CONSTANT MOVEMENTS, SPEECH RAPID AND SOMEWHAT ERRATIC) Neck: Normal Inspection Respiratory: Chest Non Tender, Normal Breath Sounds, No Accessory Muscle Use, No Respiratory Distress Cardiovascular: Regular Rate, Rhythm, No Edema, No JVD, No Murmur, Normal Peripheral Pulses Gastrointestinal: Normal Bowel Sounds, No Organomegaly, No Pulsatile Mass, Non Tender, Soft Back: Normal Inspection Extremity: Normal Capillary Refill, Normal Inspection, Normal Range of Motion, Non Tender, No Calf Tenderness, No Pedal Edema Neurologic/Psychiatric: Alert, Oriented x3, No Motor/Sensory Deficits, 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 Norm as Tested Skin: Normal Color, Warm/Dry Progress/Results/Core Measures Suspected Sepsis Recent Fever Within 48 Hours: No Infection Criteria Present: None New/Unexplained Altered Menta: No Sepsis Screen: No Definite Risk SIRS Temperature: Pulse: 84 Respiratory Rate: 20 Blood Pressure 108 /75 Mean: 86 Results/Orders Lab Results My Orders Medications Given in ED Vital Signs/I&O Capillary Refill : Less Than 3 Seconds Blood Pressure Mean: 86 Progress Note : Progress Note UNEVENTFUL ER STAY ECG Initial ECG Impression Date: Dec 21, 2017 Initial ECG Impression Time: 19:55 Initial ECG Rate: 81 Initial ECG Rhythm: Normal Sinus Diagnostic Imaging Comments CXR--NO ACUTE PROCESS CT CHEST ANGIOGRAM--NO ACUTE PROCESS, NO P.E., ENLARGED THYROID, L2 COMPRESSION WITH MODERATE STENOSIS PER RADIOLOGIST REPORTS Reviewed: Reviewed by Me Departure Impression Primary Impression: Chest pain Additional Impressions: Illicit drug use Non-compliance Disposition: 01 HOME, SELF-CARE Condition: Stable Departure-Patient Inst. Referrals: JOSE MCLEAN MD (PCP) Primary Care Physician [facility] (Family) Primary Care Physician Patient Instructions: Chest Pain (DC), Chest Pain That Is Not Caused by the Heart (DC), Drug Abuse Treatment, Drug Abuse and Drug Addiction (DC), Methamphetamine Add. Discharge Instructions: HOME, REST NO DRUGS TAKE YOUR MEDICATIONS PRESCRIBED--DO NOT MISS DOSES OF MEDICATION FOLLOW UP WITH [facility] SCHEDULED OR SOONER IF SYMPTOMS WORSEN All discharge instructions reviewed with patient and/or family. Voiced understanding. BEAR KRISHNAMURTHY DO Dec 21, 2017 22:20
[2017-12-21 22:30] VITALS: BP 131/83
== END 2017-12-21 22:30 | disposition home or self-care (01) ==
LOC: EDUNIT# 19:51 → ER 19:52
DX: R07.9 Chest pain, unspecified (principal); F19.10 Other psychoactive substance abuse, uncomplicated; J44.9 Chronic obstructive pulmonary disease, unspecified; I10 Essential (primary) hypertension; F03.90 Unspecified dementia, unspecified severity, without behavioral disturbance, psychotic disturbance, mood disturbance, and anxiety; G43.909 Migraine, unspecified, not intractable, without status migrainosus; K21.9 Gastro-esophageal reflux disease without esophagitis; E03.9 Hypothyroidism, unspecified; F41.9 Anxiety disorder, unspecified; F31.9 Bipolar disorder, unspecified; F20.9 Schizophrenia, unspecified; G40.909 Epilepsy, unspecified, not intractable, without status epilepticus; F17.210 Nicotine dependence, cigarettes, uncomplicated; Z90.89 Acquired absence of other organs; Z91.14 Patient's other noncompliance with medication regimen; Z87.820 Personal history of traumatic brain injury; Z86.14 Personal history of Methicillin resistant Staphylococcus aureus infection; Z82.49 Family history of ischemic heart disease and other diseases of the circulatory system; Z80.49 Family history of malignant neoplasm of other genital organs; Z80.41 Family history of malignant neoplasm of ovary; Z87.440 Personal history of urinary (tract) infections; Z87.01 Personal history of pneumonia (recurrent); Z90.710 Acquired absence of both cervix and uterus; Z98.51 Tubal ligation status; Z98.890 Other specified postprocedural states; Z88.0 Allergy status to penicillin; Z88.2 Allergy status to sulfonamides; Z88.8 Allergy status to other drugs, medicaments and biological substances; Z79.51 Long term (current) use of inhaled steroids
CPT/HCPCS: 36415; 71045; 71275; 80053; 80306; 80320; 82150; 82550; 82553; 83690; 83735; 83874; 83880; 84484; 84703; 85025; 85610; 85730; 93005; 93041

== ENCOUNTER 2018-11-04 12:46 | Emergency (ER) | payer MEDICAID ==
[~2018-11-04] VITALS: Ht 162.6 cm; Wt 78.9 kg
[~2018-11-04 12:46] MED LIST changes: +GABA800T10 PO; -GABA800T2 PO; -LAMO25TA; +LAMO25TA8; -TRAZ-189 PO; +TRAZ-222 PO
--- OUTSIDE RECORDS SUMMARY | 2018-11-04 12:56 | XMS REPORT | Continuity of Care Document ---
Author Organization Unknown Address Unknown Allergies Active Description Code Type Severity Reaction Onset Reported/Identified Relationship to Patient Clinical Status Yes Augmentin Drug Allergy N/A N/A 04/22/2009 Yes Avelox Drug Allergy N/A N/A 04/22/2009 Yes Augmentin Drug Allergy 04/22/2009 Yes Avelox Drug Allergy 04/22/2009 Yes sulfa drug Drug Allergy 04/22/2009 Medications There is no data. Problems Date Dx Coded Attending Type Code Diagnosis Diagnosed By 04/22/2009 682.9 OTHER CELLULITIS AND ABSCESS, UNSPECIFIED SITE 04/22/2009 682.9 OTHER CELLULITIS AND ABSCESS, UNSPECIFIED SITE 04/22/2009 682.9 OTHER CELLULITIS AND ABSCESS, UNSPECIFIED SITE 04/22/2009 682.9 OTHER CELLULITIS AND ABSCESS, UNSPECIFIED SITE 04/22/2009 ELIZA BRAN DOA K 682.9 OTHER CELLULITIS AND ABSCESS, UNSPECIFIED SITE 04/22/2009 ELIZA BRAN DOA K 682.9 OTHER CELLULITIS AND ABSCESS, UNSPECIFIED SITE 04/22/2009 GLADYS AUSTIN APRN 682.9 OTHER CELLULITIS AND ABSCESS, UNSPECIFIED SITE 04/22/2009 SHANT ECHAVARRIA YUKI K 682.9 OTHER CELLULITIS AND ABSCESS, UNSPECIFIED SITE 04/22/2009 SHANT ECHAVARRIA YUKI K 682.9 OTHER CELLULITIS AND ABSCESS, UNSPECIFIED SITE 04/22/2009 SHANT ECHAVARRIA YUKI K 682.9 OTHER CELLULITIS AND ABSCESS, UNSPECIFIED SITE 04/22/2009 SHANT ECHAVARRIA YUKI K 682.9 OTHER CELLULITIS AND ABSCESS, UNSPECIFIED SITE 04/22/2009 GLADYS AUSTIN APRN 682.9 OTHER CELLULITIS AND ABSCESS, UNSPECIFIED SITE 04/22/2009 SHANT ECHAVARRIA YUKI K 682.9 OTHER CELLULITIS AND ABSCESS, UNSPECIFIED SITE 04/22/2009 SHANT ECHAVARRIA YUKI K 682.9 OTHER CELLULITIS AND ABSCESS, [...] ABSCESS, UNSPECIFIED SITE 04/22/2009 GLADYS AUSTIN APRN R 682.9 OTHER CELLULITIS AND ABSCESS, UNSPECIFIED SITE 04/22/2009 GLADYS AUSTIN APRN R 682.9 OTHER CELLULITIS AND ABSCESS, UNSPECIFIED SITE [...] 04/25/2009 787.01 NAUSEA WITH VOMITING 04/25/2009 SHANT DO, YUKI K 787.01 NAUSEA WITH VOMITING 04/25/2009 BRAN DO YUKI K 787.01 NAUSEA WITH VOMITING 04/25/2009 GLADYS AUSTIN APRN 787.01 NAUSEA WITH VOMITING 04/25/2009 BRAN DO, YUKI K 787.01 NAUSEA WITH VOMITING 04/25/2009 BRAN DO, YUKI K 787.01 NAUSEA WITH VOMITING 04/25/2009 BRAN DO, YUKI K 787.01 NAUSEA WITH VOMITING 04/25/2009 BRAN DO, YUKI K 787.01 NAUSEA WITH VOMITING 04/25/2009 GLADYS AUSTIN APRN 787.01 NAUSEA WITH VOMITING 04/25/2009 BRAN DO YUKI K 787.01 NAUSEA WITH VOMITING 04/25/2009 BRAN DO YUKI K 787.01 NAUSEA WITH VOMITING 04/25/2009 BRAN DO YUKI K 787.01 NAUSEA WITH VOMITING 04/25/2009 BRAN DO YUKI K 787.01 NAUSEA WITH VOMITING 04/25/2009 BRAN DO YUKI K 787.01 NAUSEA WITH VOMITING 04/25/2009 GLADYS AUSTIN APRN 787.01 NAUSEA WITH VOMITING 04/25/2009 SHANT ECHAVARRIA YUKI K 787.01 NAUSEA WITH VOMITING 04/25/2009 GLADYS AUSTIN APRN 787.01 NAUSEA WITH VOMITING 04/25/2009 GLADYS AUSTIN APRN 787.01 NAUSEA WITH VOMITING 04/25/2009 SHANT ECHAVARRIA YUKI K 787.01 NAUSEA WITH VOMITING 04/25/2009 GLADYS AUSTIN APRN 787.01 NAUSEA WITH VOMITING 04/25/2009 ELIZA BRAN DOA K 787.01 NAUSEA WITH VOMITING 04/25/2009 IRMA [...] YUKI K V69.2 HIGH-RISK SEXUAL BEHAVIOR 01/29/2011 [place] HAT BAND ATTACHER GLADYS R 244.9 HYPOTHYROIDISM 01/29/2011 [place] HAT B[employer] ATTACHER, GLADYS R 272.4 OTHER AND UNSPECIFIED HYPERLIPIDEMIA 01/29/2011 [place] H[employer] ATT[employer]ER GLADYS R 296.90 MOOD DISORDER NOS 01/29/2011 [place] HAT B[employer] ATTACHER, GLADYS R 346.90 HEADACHE, MIGRAINE 01/29/2011 [place] HAT B[employer] ATTACHER GLADYS R V69.2 HIGH-RISK SEXUAL BEHAVIOR 01/29/2011 [...] YUKI K V69.2 HIGH-RISK SEXUAL BEHAVIOR 01/29/2011 [place] HAT BAND ATTACHER, GLADYS R 244.9 HYPOTHYROIDISM 01/29/2011 [place] HAT BAND ATTACHER, GLADYS R 272.4 OTHER AND UNSPECIFIED HYPERLIPIDEMIA 01/29/2011 [place] HAT BAND ATTACHER, GLADYS R 296.90 MOOD DISORDER NOS 01/29/2011 [place] HAT BAND ATTACHER, GLADYS R 346.90 HEADACHE, MIGRAINE 01/29/2011 [place] HAT BAND ATTACHER, GLADYS R V69.2 HIGH-RISK SEXUAL BEHAVIOR 01/29/2011 [...] YUKI K V69.2 HIGH-RISK SEXUAL BEHAVIOR 01/29/2011 [place] HAT BAND ATTACHER, GLADYS R 244.9 HYPOTHYROIDISM 01/29/2011 AUTSIN HAT BAND ATTACHER, GLADYS R 272.4 OTHER AND UNSPECIFIED HYPERLIPIDEMIA 01/29/2011 [place] HAT BAND ATTACHER, GLADYS R 296.90 MOOD DISORDER NOS 01/29/2011 [place] HAT BAND ATTACHER, GLADYS R 346.90 HEADACHE, MIGRAINE 01/29/2011 [place] HAT BAND ATTACHER, GLADYS R V69.2 HIGH-RISK SEXUAL BEHAVIOR 01/29/2011 BRAN DO, YUKI K 244.9 HYPOTHYROIDISM 01/29/2011 BRAN DO, YUKI K 272.4 OTHER AND UNSPECIFIED HYPERLIPIDEMIA 01/29/2011 BRAN DO, YUKI K 296.90 MOOD DISORDER NOS 01/29/2011 BRAN DO, YUKI K 346.90 HEADACHE, MIGRAINE 01/29/2011 BRAN DO, YUKI K V69.2 HIGH-RISK SEXUAL BEHAVIOR 01/29/2011 [place] HAT B[employer] ATTACHER, GLADYS R 244.9 HYPOTHYROIDISM 01/29/2011 [place] HAT B[employer] ATTACHER, GLADYS R 272.4 OTHER AND UNSPECIFIED HYPERLIPIDEMIA 01/29/2011 [place] HAT B[employer] ATTACHER, GLADYS R 296.90 MOOD DISORDER NOS 01/29/2011 [place] HAT BAND ATTACHER, GLADYS R 346.90 HEADACHE, MIGRAINE 01/29/2011 [place] HAT BAND ATTACHER, GLADYS R V69.2 HIGH-RISK SEXUAL BEHAVIOR 01/29/2011 [place] HAT BAND ATTACHER, GLADYS R 244.9 HYPOTHYROIDISM 01/29/2011 [place] H[employer] B[employer] ATTACHER, GLADYS R 272.4 OTHER AND UNSPECIFIED HYPERLIPIDEMIA 01/29/2011 [place] HAT B[employer] ATTACHER, GLADYS R 296.90 MOOD DISORDER NOS 01/29/2011 [place] HAT B[employer] ATT[employer]ER, GLADYS R 346.90 HEADACHE, MIGRAINE 01/29/2011 [place] HAT B[employer] ATTACHER, GLADYS R V69.2 HIGH-RISK SEXUAL BEHAVIOR 01/29/2011 BRAN DO, YUKI K 244.9 HYPOTHYROIDISM 01/29/2011 BRAN DO, YUKI K 272.4 OTHER AND UNSPECIFIED HYPERLIPIDEMIA 01/29/2011 BRAN DO, YUKI K 296.90 MOOD DISORDER NOS 01/29/2011 BRAN DO, YUKI K 346.90 HEADACHE, MIGRAINE 01/29/2011 BRAN DO, YUKI K V69.2 HIGH-RISK SEXUAL BEHAVIOR 01/29/2011 [place] HAT [employer] ATT[employer]ER, GLADYS R 244.9 HYPOTHYROIDISM 01/29/2011 [place] HAT B[employer] ATTACHER, GLADYS R 272.4 OTHER AND UNSPECIFIED HYPERLIPIDEMIA 01/29/2011 [place] HAT B[employer] ATTACHER, GLADYS R 296.90 MOOD DISORDER NOS 01/29/2011 [place] HAT B[employer] ATT[employer]ER, GLADYS R 346.90 HEADACHE, MIGRAINE 01/29/2011 [place] HAT B[employer] ATTACHER, GLADYS R V69.2 HIGH-RISK SEXUAL BEHAVIOR 01/29/2011 BRAN DO, YUKI K 244.9 HYPOTHYROIDISM 01/29/2011 BRAN DO, YUKI K 272.4 OTHER AND UNSPECIFIED HYPERLIPIDEMIA 01/29/2011 BRAN DO, YUKI K 296.90 MOOD DISORDER NOS 01/29/2011 BRAN DO, YUKI K 346.90 HEADACHE, MIGRAINE 01/29/2011 BRAN DO, YUKI K V69.2 HIGH-RISK SEXUAL BEHAVIOR 01/29/2011 HELLWIG HAT BAND ATTACHER, IRMA E 244.9 HYPOTHYROIDISM 01/29/2011 HELLWIG HAT BAND ATTACHER, IRMA E 272.4 OTHER AND UNSPECIFIED HYPERLIPIDEMIA 01/29/2011 HELLWIG HAT BAND ATTACHER, IRMA E 296.90 MOOD DISORDER NOS 01/29/2011 HELLWIG HAT BAND ATTACHER, IRMA E 346.90 HEADACHE, MIGRAINE 01/29/2011 HELLWIG HAT BAND ATTACHER, IRMA E V69.2 HIGH-RISK SEXUAL BEHAVIOR 04/28/2012 [...] SHOULDER REGION NOT ELSEWHERE CLASSIFIED 04/28/2012 GLADYS AUTSIN APRN 333.94 RESTLESS LEGS SYNDROME (RLS) 04/28/2012 [...] NOT ELSEWHERE CLASSIFIED 04/28/2012 GLADYS AUSTIN APRN R 333.94 RESTLESS LEGS SYNDROME (RLS) 04/28/2012 GLADYS AUSTIN APRN R 726.2 OTHER AFFECTIONS OF SHOULDER REGION NOT ELSEWHERE CLASSIFIED 04/28/2012 BRAN DO YUKI K 333.94 RESTLESS LEGS SYNDROME (RLS) 04/28/2012 BRAN DO YUKI K 726.2 OTHER AFFECTIONS OF SHOULDER [...] 333.94 RESTLESS LEGS SYNDROME (RLS) 04/28/2012 BRAN DO YUKI K 726.2 OTHER AFFECTIONS OF SHOULDER REGION NOT ELSEWHERE CLASSIFIED 04/28/2012 GLADYS AUSTIN APRN R 333.94 RESTLESS LEGS SYNDROME (RLS) 04/28/2012 GLADYS AUSTIN APRN R 726.2 OTHER AFFECTIONS OF SHOULDER REGION NOT ELSEWHERE CLASSIFIED 04/28/2012 BRAN DO YUKI K 333.94 RESTLESS LEGS SYNDROME (RLS) 04/28/2012 BRAN DO YUKI K 726.2 OTHER AFFECTIONS OF SHOULDER REGION NOT ELSEWHERE CLASSIFIED 04/28/2012 IRMA ARIAS APRN E 333.94 RESTLESS LEGS SYNDROME (RLS) 04/28/2012 IRMA [...] URINARY TRACT INFECTION 10/26/2012 GLADYS AUSTIN APRN R 599.0 URINARY TRACT INFECTION 10/26/2012 BRAN DO, [...] 599.0 URINARY TRACT INFECTION 01/11/2013 BRAN DO, YUKI K 461.9 SINUSITIS [...] GLADYS AUSTIN APRN 461.9 SINUSITIS ACUTE 01/11/2013 AUSTINGLADYS GARZA APRN 461.9 SINUSITIS ACUTE 01/11/2013 BRAN DO, [...] 04/07/2013 GLADYS AUSTIN APRN 787.91 DIARRHEA 04/07/2013 [place] H[employer] ATT[employer]ER, GLADYS R 789.07 ABDOMINAL PAIN GENERALIZED 04/07/2013 [place] H[employer] B[employer] ATT[employer]ER, GLADYS R 787.91 DIARRHEA 04/07/2013 [place] HAT B[employer] ATTACHER, GLADYS R 789.07 ABDOMINAL PAIN GENERALIZED 04/07/2013 BRAN DO, YUKI K 787.91 DIARRHEA 04/07/2013 BRAN DO, YUKI K 789.07 ABDOMINAL PAIN GENERALIZED 04/07/2013 [place] GLADYS MAX R 787.91 DIARRHEA 04/07/2013 [place] HAT BAND ATTACHER, GLADYS R 789.07 ABDOMINAL PAIN GENERALIZED 04/07/2013 BRAN DO, YUKI K 787.91 DIARRHEA 04/07/2013 BRAN DO, YUKI K 789.07 ABDOMINAL PAIN GENERALIZED 04/07/2013 IRMA ARIAS APRN E 787.91 DIARRHEA 04/07/2013 IRMA ARIAS APRN E 789.07 ABDOMINAL PAIN GENERALIZED 04/10/2013 BRAN DO, YUKI K 564.00 CONSTIPATION 04/10/2013 BRAN DO, YUKI K 564.00 CONSTIPATION 04/10/2013 AUSTINGLADYS GARZA APRN R 564.00 CONSTIPATION 04/10/2013 BRAN DO, YUKI K 564.00 CONSTIPATION 04/10/2013 BRAN DO, YUKI K 564.00 CONSTIPATION 04/10/2013 BRAN DO, YUKI K 564.00 CONSTIPATION 04/10/2013 BRAN DO, YUKI K 564.00 CONSTIPATION 04/10/2013 BRAN DO, YUKI K 564.00 CONSTIPATION 04/10/2013 [place] GLADYS MAX R 564.00 CONSTIPATION 04/10/2013 BRAN DO, YUKI K 564.00 CONSTIPATION 04/10/2013 [place] GLADYS MAX R 564.00 CONSTIPATION 04/10/2013 [place] GLADYS MAX R 564.00 CONSTIPATION 04/10/2013 BRAN DO, YUKI K 564.00 CONSTIPATION 04/10/2013 [place] GLADYS MAX R 564.00 CONSTIPATION 04/10/2013 BRAN DO, YUKI K 564.00 CONSTIPATION 04/10/2013 IRMA ARIAS APRN E 564.00 CONSTIPATION 04/20/2013 BRAN DO, YUKI K 724.4 BACK PAIN WITH RADIATION 04/20/2013 [place] H[employer] ATT[employer]ER, GLADYS Matthews 724.4 BACK PAIN WITH RADIATION 04/20/2013 BRAN DO, YUKI K 724.4 BACK PAIN WITH RADIATION 04/20/2013 BRAN DO, YUKI K 724.4 BACK PAIN WITH RADIATION 04/20/2013 BRAN DO, YUKI K 724.4 BACK PAIN WITH RADIATION 04/20/2013 BRAN DO, YUKI K 724.4 BACK PAIN WITH RADIATION 04/20/2013 BRAN DO, YUKI K 724.4 BACK PAIN WITH RADIATION 04/20/2013 [place] H[employer] ATT[employer]ER, GLADYS R 724.4 BACK PAIN WITH RADIATION 04/20/2013 BRAN DO, YUKI K 724.4 BACK PAIN WITH RADIATION 04/20/2013 [place] H[employer] B[employer] ATT[employer]ER, GLADYS R 724.4 BACK PAIN WITH RADIATION 04/20/2013 [place] H[employer] B[employer] ATT[employer]ER, GLADYS Matthews 724.4 BACK PAIN WITH RADIATION 04/20/2013 BRAN DO, YUKI K 724.4 BACK PAIN WITH RADIATION 04/20/2013 [place] H[employer] B[employer] ATTACHER, GLADYS Matthews 724.4 BACK PAIN WITH RADIATION 04/20/2013 BRAN DO, YUKI K 724.4 BACK PAIN WITH RADIATION 04/20/2013 IRMA ARIAS APRN 724.4 BACK PAIN WITH RADIATION 10/23/2013 BRAN DO, YUKI K 530.81 GERD 10/23/2013 BRAN DO, YUKI K 530.81 GERD 10/23/2013 BRAN DO, YUKI K 530.81 GERD 10/23/2013 [place] WINTER, GLADYS Matthews 530.81 GERD 10/23/2013 BRAN DO, YUKI K 530.81 GERD 10/23/2013 [place] HAT B[employer] ATTACHER, GLADYS Matthews 530.81 GERD 10/23/2013 [place] HAT BAND ATTACHER, GLADYS Matthews 530.81 GERD 10/23/2013 BRAN DO, YUKI K 530.81 GERD 10/23/2013 [place] HAT B[employer] ATTACHER, GLADYS R 530.81 GERD 10/23/2013 BRAN DO, YUKI K 530.81 GERD 10/23/2013 IRMA ARIAS APRN 530.81 GERD 11/07/2013 BRAN DO, YUKI K 682.0 ABCESS, FACE 11/07/2013 BRAN DO, YUKI K 682.0 ABCESS, FACE 11/07/2013 [place] GLADYS MAX 682.0 ABCESS, FACE 11/07/2013 BRAN DO, YUKI K 682.0 ABCESS, FACE 11/07/2013 [place] HAT BAND ATTACHER, GLADYS Matthews 682.0 ABCESS, FACE 11/07/2013 [place] HAT BAND ATTACHER, GLADYS R 682.0 ABCESS, FACE 11/07/2013 BRAN DO, YUKI K 682.0 ABCESS, FACE 11/07/2013 [place] HAT B[employer] ATTACHER, GLADYS R 682.0 ABCESS, FACE 11/07/2013 BRAN DO, YUKI K 682.0 ABCESS, FACE 11/07/2013 HELLWIG HAT BAND ATTACHERIRMA E 682.0 ABCESS, FACE 12/18/2013 BRAN DO, YUKI K 785.1 PALPITATIONS 12/18/2013 BRAN DO, YUKI K 786.50 CHEST PAIN 12/18/2013 [place] H[employer] ATT[employer]ER, GLADYS R 785.1 PALPITATIONS 12/18/2013 [place] H[employer] B[employer] ATT[employer]ER, GLADYS R 786.50 CHEST PAIN 12/18/2013 BRAN DO, YUKI K 785.1 PALPITATIONS 12/18/2013 BRAN DO, YUKI K 786.50 CHEST PAIN 12/18/2013 [place] HAT BAND ATTACHER, GLADYS R 785.1 PALPITATIONS 12/18/2013 [place] HAT BAND ATTACHER, GLADYS R 786.50 CHEST PAIN 12/18/2013 [place] HAT BAND ATTACHER, GLADYS R 785.1 PALPITATIONS 12/18/2013 [place] HAT BAND ATTACHER, GLADYS R 786.50 CHEST PAIN 12/18/2013 BRAN DO, YUKI K 785.1 PALPITATIONS 12/18/2013 BRAN DO, YUKI K 786.50 CHEST PAIN 12/18/2013 [place] HAT B[employer] ATTACHER, GLADYS R 785.1 PALPITATIONS 12/18/2013 [place] HAT B[employer] ATTACHER, GLADYS R 786.50 CHEST PAIN 12/18/2013 BRAN DO, YUKI K 785.1 PALPITATIONS 12/18/2013 BRAN DO, YUKI K 786.50 CHEST PAIN 12/18/2013 HELLWIG HAT BAND ATTACHERIRMA E 785.1 PALPITATIONS 12/18/2013 HELLWIG HAT BAND ATTACHERIRMA E 786.50 CHEST PAIN 01/01/2014 [place] HAT BAND ATTACHERGLADYS R 682.6 CELLULITIS AND ABSCESS OF LEG [...] ABSCESS OF LEG EXCEPT FOOT 01/01/2014 SHANT DO, YUKI Joyner 682.6 CELLULITIS AND ABSCESS OF LEG EXCEPT FOOT 01/01/2014 IRMA ARIAS APRN 682.6 CELLULITIS AND ABSCESS OF LEG EXCEPT FOOT 03/20/2014 YUKI BRAN DO 466.0 BRONCHITIS, ACUTE 03/20/2014 GLADYS AUSTIN APRN R 466.0 BRONCHITIS, ACUTE 03/20/2014 GLADYS AUSTIN APRN 466.0 BRONCHITIS, ACUTE 03/20/2014 YUKI BRAN DO 466.0 BRONCHITIS, ACUTE 03/20/2014 GLADYS AUSTIN APRN 466.0 BRONCHITIS, ACUTE 03/20/2014 YUKI BRAN DO 466.0 BRONCHITIS, ACUTE 03/20/2014 IRMA ARIAS APRN 466.0 BRONCHITIS, ACUTE 04/03/2014 GLADYS AUSTIN APRN 041.86 HELICOBACTER PYLORI [...] APRN V76.2 CERVICAL CANCER SCREENING (PAP SMEAR) 07/05/2014 YUKI BRAN DO 460 ACUTE NASOPHARYNGITIS (COMMON COLD) 07/05/2014 IRMA ARIAS APRN 460 ACUTE NASOPHARYNGITIS (COMMON COLD) Procedures Code Description [place] [address] ROUTINE VENIPUNCTURE 08/05/2012 41578 CBC 08/05/2012 25870 CMP 08/05/2012 7760341 GFR CALC (RESULT ONLY) 08/05/2012 01281 TSH 08/06/2012 49213 ROUTINE VENIPUNCTURE 11/21/2012 04922 TSH 11/21/2012 31713 THERAPUTIC INJ SQ/IM 12/05/2012 J1885 TORADOL INJ 12/05/2012 J2550 PHENERGAN INJECTION UP TO 50 MG 12/05/2012 58672 THERAPUTIC INJ SQ/IM 01/11/2013 J1885 TORADOL PER 15 MG, INJ KETOROLAC TROMETHAMINE 01/11/2013 J2550 PHENERGAN INJECTION UP TO 50 MG 01/11/2013 09627 THERAPUTIC INJ SQ/IM 02/06/2013 J1885 TORADOL INJ 02/06/2013 J2550 PHENERGAN INJECTION UP TO 50 MG 02/06/2013 71581 XRAY LUMBAR SPINE 2 OR 3 VIEWS 02/20/2013 43808 XRAY HIPS BILATERAL 02/20/2013 64670 UA LONG DIP 03/28/2013 16599 CULTURE URINE 03/30/2013 05542 ROUTINE VENIPUNCTURE 04/06/2013 33805 THERAPUTIC INJ SQ/IM 04/06/2013 J0696 ROCEPHIN INJ 1 g 04/06/2013 17641 UA LONG DIP 04/06/2013 99685 CBC 04/06/2013 95040 CRP 04/06/2013 23105 ESR/SED RATE 04/06/2013 10507 CULTURE URINE 04/07/2013 92084 XRAY ABDOMEN 2 VIEWS 04/07/2013 90299 THERAPUTIC INJ SQ/IM 04/28/2013 J1885 TORADOL INJ 04/28/2013 02992 XRAY LUMBAR SPINE 2 OR 3 VIEWS 10/25/2013 37923 CULTURE WOUND (AEROBIC) 11/09/2013 98905 EKG, TRACING (IN-HOUSE) 12/18/2013 42482 H PYLORI (IN-HOUSE) 12/18/2013 23790 HOLTER MONITOR (OUTPATIENT) 12/18/2013 83482 ROUTINE VENIPUNCTURE 01/01/2014 46124 CMP 01/01/2014 5820056 GFR CALC (RESULT ONLY) 01/01/2014 99015 TSH 01/01/2014 53563 HEP B CORE ANTIBODY, IGM 01/01/2014 95596 HEP C ANTIBODY (RML) 01/01/2014 93813 HEP A ANTIBODY, IGM (RML) 01/01/2014 55979 ROUTINE VENIPUNCTURE 03/20/2014 98353 CULTURE STOOL 03/20/2014 7813271 GFR CALC (RESULT ONLY) 03/20/2014 37344 CMP 03/20/2014 05149 CBC 03/20/2014 72750 HEMOCCULT 03/20/2014 18236 TSH 03/20/2014 49601 STOOL FOR POLYS & LEUKOCYTES 03/20/2014 39925 CLOSTRIDIUM (C-DIFF) 03/21/2014 59886 STOOL FOR O & P 03/21/2014 5959695 STOOL FOR BACTERIAL PATHOGENS 03/22/2014 72438 H PYLORI (IN-HOUSE) 04/03/2014 23432 US PELVIC (TRANSVAGINAL ONLY) 04/30/2014 59941 MAMMOGRAM, SCREENING 04/30/2014 33366 CULTURE UROGENITAL 04/30/2014 36077 GC/CHLAM PROBE (STATE) 04/30/2014 12218 PAP SMEAR 04/30/2014 MASSIEL REBOLLEDO 04/30/2014 Q0091 PAP SMEAR OBTAIN SMEAR 04/30/2014 42118 THERAPUTIC INJ SQ/IM 07/05/2014 J2930 SOLUMEDROL INJ 07/05/2014 37024 INFLUENZA A & B (IN-HOUSE) 07/05/2014 40282 STREP A (IN-HOUSE) 07/05/2014 25045 OXIMETRY 07/23/2014 Results There is no data. Encounters ACCT No. Visit Date/Time Discharge Status Pt. Type Provider Facility Loc./Unit Complaint [id number] 07/05/2014 14:42:00 07/05/2014 23:59:59 CLS Outpatient YUKI BRAN DO [id number] 07/05/2014 14:42:00 07/05/2014 23:59:59 CLS Outpatient RAHULIRMA CARRERA APRN [id number] 05/10/2014 13:42:00 05/10/2014 23:59:59 CLS Outpatient GLADYS AUSTIN APRN [id number] 04/30/2014 14:23:00 04/30/2014 23:59:59 CLS Outpatient YUKI BRAN DO [id number] 04/03/2014 10:53:00 04/03/2014 23:59:59 CLS Outpatient GLADYS AUSTIN APRN [id number] 03/20/2014 09:56:00 03/20/2014 23:59:59 CLS Outpatient YUKI BRAN DO [id number] 03/20/2014 09:56:00 03/20/2014 23:59:59 CLS Outpatient GLADYS AUSTIN APRN [id number] 12/18/2013 12:45:00 12/18/2013 23:59:59 CLS Outpatient YUKI BRAN DO [id number] 12/18/2013 12:45:00 12/18/2013 23:59:59 CLS Outpatient GLADYS AUSTIN APRN [id number] 11/07/2013 11:06:00 11/07/2013 23:59:59 CLS Outpatient YUKI BRAN DO [id number] 10/23/2013 11:03:00 10/23/2013 23:59:59 CLS Outpatient YUKI BRAN DO [id number] 09/25/2013 09:57:00 09/25/2013 23:59:59 CLS Outpatient YUKI BRAN DO [id number] 08/28/2013 09:30:00 08/28/2013 23:59:59 CLS Outpatient BRAN DOYUKI [id number] 05/22/2013 14:18:00 05/22/2013 23:59:59 CLS Outpatient GLADYS AUSTIN APRN [id number] 04/28/2013 10:05:00 04/28/2013 23:59:59 CLS Outpatient SHANT DOYUKI [id number] 04/10/2013 13:50:00 04/10/2013 23:59:59 CLS Outpatient BRAN DOYUKI [id number] 04/07/2013 13:59:00 04/07/2013 23:59:59 CLS Outpatient BRAN DOYUKI [id number] 03/28/2013 14:28:00 03/28/2013 23:59:59 CLS Outpatient BRAN DOYUKI [id number] 02/20/2013 11:10:00 02/20/2013 23:59:59 CLS Outpatient GLADYS AUSTIN APRN [id number] 02/06/2013 12:40:00 02/06/2013 23:59:59 CLS Outpatient BRAN DOYUKI [id number] 01/11/2013 13:52:00 01/11/2013 23:59:59 CLS Outpatient BRAN DOYUKI [id number] 04/28/2012 14:07:00 04/28/2012 23:59:59 CLS Outpatient [id number] 12/05/2012 09:54:00 Document Registration [id number] 11/21/2012 11:53:00 Document Registration [id number] 08/18/2012 14:45:00 Document Registration [id number] 02/14/2014 20:44:35 02/14/2014 23:59:59 CLS Outpatient Clifton Yen [facility] 12/03/2014 06:57:33 ACT Document Registration
[2018-11-04] MEDS ORDERED: LIDOCAINE 1% INJ 20 ML 20 ML VIAL INJ ONE (13:15)
[2018-11-04] MEDS ORDERED: TETANUS,DIPTH,PERTUSS P/F (BOOSTRIX) 0.5 ML VIAL IM ONE (13:15)
[2018-11-04] MEDS ORDERED: TOPI50TA37 PO (13:38)
[2018-11-04] MEDS ORDERED: CEPH500T PO (13:38)
--- NOTE | 2018-11-04 13:40 | ED Lower Extremity ---
General Chief Complaint: Foreign Body Stated Complaint: FISH HOOK IN RIGHT LEG Nursing Triage Note: PATIENT STATES THAT SHE GOT A FISH HOOK CAUGHT IN HER RIGHT CALF 3 DAYS AGO. SHE CUT PART OF IT OFF WITH WIRE CUTTERS AND LEFT THE REST IN HER LEG. IT IS RED AND CAUSING PAIN. Nursing Sepsis Screen: No Definite Risk History of Present Illness Date Seen by Provider: Nov 04, 2018 Time Seen by Provider: 12:55 Initial Comments 48-year-old female presents for patient in her right lower leg for 3 days. She states that it occurred and she cut the hook, leaving the end and adams in her skin, assuming it would "fall out, eventually." She is uncertain of her last tetanus shot. She has not been on any of her routine medications for the last 6-12 months, she is set up to re-establish with Dr. Mclean in the next month. Onset: other Pain/Injury Location: right leg (lower leg) Method of Injury: incised Allergies and Home Medications Allergies Coded Allergies: Sulfa (Sulfonamide Antibiotics) (Unverified Allergy, Severe, 11/30/06) PT STATES SHE'S "DEATHLY" ALLERGIC TO SULFA amoxicillin (Unverified Allergy, Severe, 11/30/06) Penicillins (Verified Allergy, Unknown, 12/22/06) moxifloxacin (Verified Allergy, Unknown, "HIGH FEVER, DIDN'T WAKE UP", CAN TAKE LEVAQUIN W/O PROBLEM, 12/22/06) Uncoded Allergies: AVALOX (Allergy, Intermediate, 11/30/06) FEVER AND VOMITTING Home Medications Albuterol Sulfate 18 Gm Hfa.aer.ad, 2 PUFF IH Q4H PRN for SHORTNESS OF BREATH, (Reported) Albuterol Sulfate 2.5 Mg/3 Ml Vial.neb, 2.5 MG IH Q4H PRN for SHORTNESS OF BREATH Prescribed by: LIZBETH COFFMAN on 02/26/16 1403 Alprazolam 0.5 Mg Tablet, 0.5 MG PO BID PRN for ANXIETY, (Reported) Brexpiprazole 0.5 Mg Tablet, 0.5 MG PO UD, (Reported) FILLED 02/19/16 #30 1 TAB PO QD X 10 DAYS; THEN 2 TABS QD THEREAFTER Cephalexin 500 Mg Capsule, 500 MG PO TID Prescribed by: BUSHRA MANCILLA on 09/18/17 1047 Cephalexin 500 Mg Tablet, 500 MG PO QID Prescribed by: SASCHA RIOS on 11/04/18 1338 Cyclobenzaprine HCl 10 Mg Tablet, 10 MG PO Q8H Prescribed by: BEAR KRISHNAMURTHY on 03/01/17 021 Fluoxetine HCl 40 Mg Capsule, 40 MG PO DAILY, (Reported) Gabapentin 800 Mg Tablet, 800 MG PO TID, (Reported) Hydrocodone Bit/Acetaminophen 1 Each Tablet, 1-2 EACH PO Q6H PRN for PAIN Prescribed by: PAVEL JOY on 03/08/17 1426 Hydrocodone/Ibuprofen 1 Each Tablet, 1 EACH PO Q 4 HOURS Prescribed by: BEAR KRISHNAMURTHY on 03/01/17 021 Hydroxyzine Pamoate 50 Mg Capsule, 50 MG PO BID PRN for ANXIETY, (Reported) Ibuprofen 800 Mg Tablet, 800 MG PO TID PRN for PAIN, (Reported) Ivermectin 3 Mg Tablet, 3 MG PO ONCE Prescribed by: PAVEL JOY on 03/01/16 1230 Levothyroxine Sodium 125 Mcg Tablet, 125 MCG PO DAILY, (Reported) Lisinopril/Hydrochlorothiazide 1 Each Tablet, 1 TAB PO DAILY, (Reported) Omeprazole 40 Mg Capsule.dr, 40 MG PO DAILY, (Reported) Ondansetron 4 Mg Tab.rapdis, 4 MG SL Q4H Prescribed by: PAVEL JOY on 07/16/16 2311 Ondansetron 8 Mg Tab.rapdis, 8 MG PO Q6H PRN for NAUSEA/VOMITING-1ST LINE Prescribed by: BUSHRA MANCILLA on 09/18/17 104 Pantoprazole Sodium 40 Mg Tablet.dr, 40 MG PO DAILY Prescribed by: BUSHRA MANCILLA on 06/07/172004 Risperidone 0.25 Mg Tab.rapdis, 0.25 MG PO HS PRN for BAD THOUGHTS , (Reported) Topiramate 100 Mg Tablet, 150 MG PO BID, (Reported) TAKES 1 & 1/2 OF A (100 MG) TABLETS Topiramate 50 Mg Tablet, 50 MG PO BID Prescribed by: SASCHA RIOS on 11/04/18 133 Tramadol HCl 50 Mg Tablet, 50 MG PO Q6H PRN for PAIN, (Reported) Trazodone HCl 50 Mg Tablet, 50-100 MG PO HS PRN for SLEEP, (Reported) TAKES 1-2 (50 MG) TABLETS Patient Home Medication List Home Medication List Reviewed: Yes Review of Systems Constitutional: no symptoms reported Skin: see HPI, other (foreign body right lower extremity) All Other Systems Reviewed Negative Unless Noted: Yes Past Cmaagtz-Stdcgz-Uryhii Hx Past Med/Social Hx: Reviewed Nursing Past Med/Soc Hx Patient Social History Alcohol Use: Denies Use Recreational Drug Use: No Drug of Choice: THC, + IV METH Smoking Status: Current Everyday Smoker Type Used: Cigarettes 2nd Hand Smoke Exposure: Yes Recent Foreign Travel: No Contact w/Someone Who Travel: No Recent Infectious Disease Expo: No Recent Hopitalizations: No Immunizations Up To Date Tetanus Booster (TDap): More than 5yrs PED Vaccines UTD: No Date of Pneumonia Vaccine: Nov 26, 1999 Date of Influenza Vaccine: Feb 26, 2016 Seasonal Allergies Seasonal Allergies: No Past Medical History Surgeries: Yes (ECTOPIC PROEGNANCY) Appendectomy, Section, Gallbladder, Hysterectomy, Oophorectomy, Tubal Ligation Respiratory: Yes Pneumonia, COPD Currently Using CPAP: No Currently Using BIPAP: No Cardiac: Yes Hypertension Neurological: Yes (CHRONIC HEADACHES) Dementia, Headaches /Migraines, Seizure Disorder, Traumatic Brain Injury 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 Disorders: No Female 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 Disorders: Denies [employer] History: Hysterectomy, Menopausal Sexually Transmitted Disease: No HIV/AIDS: No Genitourinary: Yes Renal Failure, UTI-Chronic Gastrointestinal: Yes (ALCOHOLISM) Gastroesophageal Reflux Musculoskeletal: Yes (L2 COMPRESSION FX 03/01/17; CHRONIC NECK AND BACK PAIN ) Degenerate Disk Disease, Fibromyalgia, Back Injury, Chronic Back Pain, Fractures Endocrine: Yes Hypothyroidsim Loss of Vision: Denies Hearing Impairment: Denies Cancer: No Psychosocial: Yes Anxiety, Bipolar, Schizophrenia, Depression Integumentary: Yes (MRSA) Blood Disorders: No Adverse Reaction/Blood Tranf: No Family Medical History Arthritis 19 MOTHER GRANDMOTHER Cataracts GRANDMOTHER GRANDMOTHER Congenital heart disease 19 FATHER Diabetes mellitus 19 MOTHER FH: defects GRAND-DAUGHTER (3 LUNGS, 36 FINGER AND TOES) FH: brain aneurysm FH: irritable bowel syndrome 19 MOTHER FH: ovarian cancer PATERNAL AUNTS FH: pneumonia 19 MOTHER FH: uterine cancer PATERNAL AUNTS Glaucoma GRANDMOTHER GRANDMOTHER Kidney infection 19 FATHER Visual disorder GRANDMOTHER GRANDMOTHER Diabetes, Psychiatric Problems, Renal Disease, Stroke, Vascular Disease Physical Exam Vital Signs Vital Signs - First Documented 11/04/18 12:51 Temp 98.2 Pulse 55 Resp 18 B/P (MAP) 133/97 (109) Pulse Ox 99 Capillary Refill : Less Than 3 Seconds Height, Weight, BMI Height: 5'4.00" Weight: 174lbs. 0oz. [id number]; 35.4 BMI Method:Stated General Appearance: WD/WN, no apparent distress Cardiovascular: normal peripheral pulses, regular rate, rhythm Respiratory: chest non-tender, lungs clear, normal breath sounds Legs: right leg normal range of motion, right leg pain, right leg soft tissue tenderness, right leg other (Puncture wound right lower ext, slight erythema and exquisite tenderness.) Neurologic/Tendon: normal sensation, normal motor functions, normal tendon functions Neurologic/Psychiatric: no motor/sensory deficits, alert, normal mood/affect, oriented x 3 Procedures/Interventions I&D : Site: right lower extremity Blade Size: 11 I & D Procedure: betadine prep Progress Using sterile technique, the skin over the wound site was prepped with Betadine, skin and soft tissue infiltrated with 5 ML's of 1% lidocaine. Once adequate local anesthetic was obtained, the skin was incised with 11 blade, the foreign body was quickly identified easily removed. Fish hook and adams were intact. The wound was copiously irrigated with 500 ML's of sterile saline. Triple antibiotic ointment and sterile dressing were placed over the wound site, wrapped with 4 inch you wrap to secure. There is no active bleeding. Patient tolerated the procedure well. Progress/Results/Core Measures Results/Orders My Orders Orders - SASCHA RIOS Lidocaine 1% Inj 20 Ml (Xylocaine 1% Inj (11/04/18 13:15) Dipht,Pertuss(Acell),Tet Adult (Boostrix (11/04/18 13:15) Medications Given in ED Current Medications Medications Dose Ordered Sig/Fela Route Start Time Stop Time Status Last Admin Dose Admin Diphtheria/ Tetanus/Acell Pertussis 0.5 ml ONCE ONCE IM 11/04/18 13:15 11/04/18 13:16 DC 11/04/18 13:32 0.5 ML Lidocaine HCl 20 ml ONCE ONCE INJ 11/04/18 13:15 11/04/18 13:16 DC 11/04/18 13:32 20 ML Vital Signs/I&O 11/04/18 11/04/18 12:51 13:43 Temp 98.2 98.2 Pulse 55 55 Resp 18 18 B/P (MAP) 133/97 (109) 133/97 (109) Pulse Ox 99 99 Blood Pressure Mean: 109 Departure Impression Primary Impression: Fish hook injury of right lower leg Qualified Codes: S89.91XA - Unspecified injury of right lower leg, initial encounter Disposition: 01 HOME, SELF-CARE Condition: Improved Departure-Patient Inst. Decision time for Depature: 13:35 Referrals: JOSE MCLEAN MD (PCP/Family) Primary Care Physician Patient Instructions: Foreign Body in Skin (DC) Add. Discharge Instructions: Clean wound three times daily with peroxide and apply triple antibiotic ointmen t, keep covered with bandaid or gauze. Take antibiotic as prescribed. Schedule follow-up appointment with Dr. Mclean, to resume your home medications. You may take Tylenol 650 mg alternating with ibuprofen 600 mg every 4 hours for pain or fever. Return to emergency department for increased pain, fever greater than 101 not relieved by Tylenol or ibuprofen, discolored or foul smelling drainage from wound site, or new concerns. All discharge instructions reviewed with patient and/or family. Voiced understa nding. Scripts Cephalexin (Cephalexin) 500 Mg Tablet 500 MG PO QID, #20 TAB 0 Refills Prov: SASCHA RIOS 11/04/18 Topiramate (Topamax) 50 Mg Tablet 50 MG PO BID, #30 TAB 0 Refills Prov: SASCHA RIOS 11/04/18 Copy Copies To 1: JOSE MCLEAN MD, AMY ARNP Nov 04, 2018 13:40
[2018-11-04 13:43] VITALS: BP 133/97
== END 2018-11-04 13:46 | disposition home or self-care (01) ==
LOC: EDUNIT# 12:46 → ER 12:48
DX: S81.841A Puncture wound with foreign body, right lower leg, initial encounter (principal); J44.9 Chronic obstructive pulmonary disease, unspecified; I10 Essential (primary) hypertension; G40.909 Epilepsy, unspecified, not intractable, without status epilepticus; G43.909 Migraine, unspecified, not intractable, without status migrainosus; F03.90 Unspecified dementia, unspecified severity, without behavioral disturbance, psychotic disturbance, mood disturbance, and anxiety; F10.20 Alcohol dependence, uncomplicated; K21.9 Gastro-esophageal reflux disease without esophagitis; M79.7 Fibromyalgia; E03.9 Hypothyroidism, unspecified; F31.9 Bipolar disorder, unspecified; F20.9 Schizophrenia, unspecified; F41.9 Anxiety disorder, unspecified; F17.210 Nicotine dependence, cigarettes, uncomplicated; Z87.440 Personal history of urinary (tract) infections; Z87.01 Personal history of pneumonia (recurrent); Z88.2 Allergy status to sulfonamides; Z88.1 Allergy status to other antibiotic agents; Z88.0 Allergy status to penicillin; Z90.49 Acquired absence of other specified parts of digestive tract; Z90.710 Acquired absence of both cervix and uterus; Z98.51 Tubal ligation status; Z82.49 Family history of ischemic heart disease and other diseases of the circulatory system; Z80.8 Family history of malignant neoplasm of other organs or systems; X58.XXXA Exposure to other specified factors, initial encounter
CPT/HCPCS: 90471; 90715; 99284

== ENCOUNTER 2021-06-16 18:02 | Observation (INO) | payer MEDICAID ==
[~2021-06-16] VITALS: Ht 162.6 cm; Wt 108.7 kg
[2021-06-16] VITALS (8 sets, daily range): BP systolic 94–120; BP diastolic 63–99
[~2021-06-16 18:02] MED LIST changes: +ACHYD1T PO; +CLIN-144 PO; -CLIN150C17 PO; +CLIN150C20 PO; -CLIN300C11 PO; +CYCL10TA25 PO; -CYCL10TA9 PO; -DIAZ5TAB3; +DIAZ5TAB49; -HYDR-3820 PO; +LISI1TAB46 PO; -LISI1TAB8 PO; -OMEP40CA36 PO; +OMEP40CA6 PO; +TOPI50TA37 PO; -TRAM50TA2 PO; -TRAZ-190 PO; -TRAZ-222 PO; +TRAZ-227 PO; +TRM50T PO; +TRZ50T PO
[2021-06-16 18:18] LABS: BASOPHILS # (AUTO) 0.1 10^3/uL (0.0-0.1); BASOPHILS % (AUTO) 1 % (0-10); EOSINOPHILS # (AUTO) 0.3 10^3/uL (0.0-0.3); EOSINOPHILS % (AUTO) 3 % (0-10); HEMATOCRIT 43 % (35-52); HEMOGLOBIN 14.4 g/dL (11.5-16.0); LYMPHOCYTES # (AUTO) 2.7 10^3/uL (1.0-4.0); LYMPHOCYTES % (AUTO) 26 % (12-44); MEAN CORPUSCULAR HEMOGLOBIN 30 pg (25-34); MEAN CORPUSCULAR HGB CONC 33 g/dL (32-36); MEAN CORPUSCULAR VOLUME 91 fL (80-99); MEAN PLATELET VOLUME 8.9 fL (9.0-12.2); MONOCYTES # (AUTO) 0.8 10^3/uL (0.0-1.0); MONOCYTES % (AUTO) 8 % (0-12); NEUTROPHILS # (AUTO) 6.3 10^3/uL (1.8-7.8); NEUTROPHILS % (AUTO) 61 % (42-75); PLATELET COUNT 349 10^3/uL (130-400); WHITE BLOOD COUNT 10.3 10^3/uL (4.3-11.0)
--- NOTE | 2021-06-16 18:25 | ED Neurological Problem ---
General Stated Complaint: HEADACHE / HIGH BP / POSS STROKE Source: patient History of Present Illness Date Seen by Provider: Jun 16, 2021 Time Seen by Provider: 18:09 Initial Comments PT ARRIVES VIA POV FROM HOME PT WALKS IN ON HER OWN WITHOUT DIFFICULTY PT STATES SHE LAID DOWN AND TOOK A NAP AROUND 1330--HAD A GENERALIZED HEADACHE AT THAT TIME WOKE UP AROUND 1600 AND HAD RIGHT FACIAL DROOP STATES SHE ATE A [employer] AND [employer] + CHEESE SOON SHE WOKE UP AT 1600 AND NO PROBLEMS CHEWING OR SWALLOWING STATES SHE FEELS A LITTLE "OFF BALANCE" BUT IS NOT ACTUALLY DIZZY AND NO PROBLEMS WALKING STATES THE LEFT SIDE OF HER FACE FEELS A LITTLE FUNNY OFF AND ON, AND STATES SHE HAS SOME BLURRY VISION IN HER LEFT EYE OFF AND ON, AND FEELS PRESSURE BEHIND HER LEFT EYE OFF AND ON. NO PROBLEMS WITH NUMBNESS OR TINGLING TO ANY OTHER PART OF HER BODY--ARMS AND LEGS ARE WORKING FINE FAMILY REPORT THAT HER SPEECH IS NOT QUITE NORMAL. PT STATES SHE HAS BEEN TO [facility]IM[facility] AUST[facility] AT [facility] LAST WEEK FOR C ONSTIPATION, ABDOMINAL BLOATING, AND WAS ALSO DX WITH A KIDNEY STONE SHE FOLLOWED UP WITH HIM THIS MORNING AND WAS RESTARTED ON BLOOD PRESSURE MEDICATION--STATES HER BLOOD PRESSURE WAS 170'S AT THE CLINIC, AND WAS STARTED ON LISINOPRIL + HCTZ, SHE WAS ALSO GIVEN FLOMAX TO HELP PASS KIDNEY STONE PT STATES SHE WAS ON BLOOD PRESSURE MEDICATION FOR MANY YEARS, BUT THEN HAS NOT BEEN ON ANY FOR OVER A YEAR. NO FEVER OR RECENT ILLNESS NO HISTORY OF SIMILAR PT HAS CHRONIC HEADACHES, HISTORY OF TBI AND SEIZURES AND HAS BEEN DX WITH DEMENTIA, PER OLD RECORDS PT WAS LIVING ALONE, UNTIL MARCH, WHEN SHE MOVED IN WITH HER AUNT PT HAS LONG HISTORY OF NON-COMPLIANCE IN ALL ASPECTS OF CARE, AND HAS BEEN HOMELESS IN PAST, HAS HISTORY OF SUBSTANCE ABUSE, INCLUDING IV METH, THC AND ALCOHOL ABUSE. DENIES ANY RECENT USE. PCP: [facility], JIMENE[facility] A[facility] Allergies and Home Medications Allergies Coded Allergies: Sulfa (Sulfonamide Antibiotics) (Unverified Allergy, Severe, 11/30/06) PT STATES SHE'S "DEATHLY" ALLERGIC TO SULFA amoxicillin (Unverified Allergy, Severe, 11/30/06) Penicillins (Verified Allergy, Unknown, 12/22/06) moxifloxacin (Verified Allergy, Unknown, "HIGH FEVER, DIDN'T WAKE UP", CAN TAKE LEVAQUIN W/O PROBLEM, 12/22/06) Uncoded Allergies: AVALOX (Allergy, Intermediate, 11/30/06) FEVER AND VOMITTING Patient Home Medication List Home Medication List Reviewed: Yes Albuterol Sulfate (Ventolin Hfa) 18 Gm Hfa.aer.ad, 2 PUFF IH Q4H PRN for SHORTNESS OF BREATH, (Reported) Entered as Reported by: EMMANUEL SANTOS on 02/25/16 1658 Albuterol Sulfate (Albuterol Sulfate) 2.5 Mg/3 Ml Vial.neb, 2.5 MG IH Q4H PRN for SHORTNESS OF BREATH Prescribed by: LIZBETH COFFMAN on 02/26/16 1403 Alprazolam (Xanax) 0.5 Mg Tablet, 0.5 MG PO BID PRN for ANXIETY, (Reported) Entered as Reported by: EMMANUEL SANTOS on 02/25/16 1658 Brexpiprazole (Rexulti) 0.5 Mg Tablet, 0.5 MG PO UD, (Reported) Entered as Reported by: EMMANUEL SANTOS on 02/25/16 1658 Cephalexin (Keflex) 500 Mg Capsule, 500 MG PO TID Prescribed by: BUSHRA MANCILLA on 09/18/17 1047 Cephalexin (Cephalexin) 500 Mg Tablet, 500 MG PO QID Prescribed by: SASCHA RIOS on 11/04/18 1338 Cyclobenzaprine HCl (Cyclobenzaprine HCl) 10 Mg Tablet, 10 MG PO Q8H Prescribed by: BEAR KRISHNAMURTHY on 03/01/17 0219 Fluoxetine HCl (Fluoxetine HCl) 40 Mg Capsule, 40 MG PO DAILY, (Reported) Entered as Reported by: PAULA CHONG on 11/02/15 1848 Gabapentin (Gabapentin) 800 Mg Tablet, 800 MG PO TID, (Reported) Entered as Reported by: WHITNEY VICTOR on 11/26/14 1235 Hydrocodone Bit/Acetaminophen (Lortab 5 Mg Tablet) 1 Each Tablet, 1-2 EACH PO Q6H PRN for PAIN Prescribed by: PAVEL JOY on 03/08/17 1426 Hydrocodone/Ibuprofen (Hydrocodone-Ibuprofen 5-200 mg) 1 Each Tablet, 1 EACH PO Q 4 HOURS Prescribed by: BEAR KRISHNAMURTHY on 03/01/17 0219 Hydrocodone/Ibuprofen (Hydrocodone-Ibuprofen 7.5-200) 1 Each Tablet, (Reported) Entered as Reported by: PAULA CHONG on 03/08/17 1305 Hydroxyzine Pamoate (Hydroxyzine Pamoate) 50 Mg Capsule, 50 MG PO BID PRN for ANXIETY, (Reported) Entered as Reported by: EMMANUEL SANTOS on 02/25/16 165 Ibuprofen (Ibuprofen) 800 Mg Tablet, 800 MG PO TID PRN for PAIN, (Reported) Entered as Reported by: EMMANUEL SANTOS on 02/25/16 165 Ivermectin (Ivermectin) 3 Mg Tablet, 3 MG PO ONCE Prescribed by: PAVEL JOY on 03/01/16 1230 Levothyroxine Sodium (Levothyroxine Sodium) 125 Mcg Tablet, 125 MCG PO DAILY, (Reported) Entered as Reported by: EMMANUEL SANTOS on 02/25/161657 Lisinopril/Hydrochlorothiazide (Lisinopril-Hctz 20-12.5 mg Tab) 1 Each Tablet, 1 TAB PO DAILY, (Reported) Entered as Reported by: HALEY CALERO on 08/29/15 2149 Omeprazole (Omeprazole) 40 Mg Capsule.dr, 40 MG PO DAILY, (Reported) Entered as Reported by: EMMANUEL SANTOS on 02/25/161657 Ondansetron (Zofran Odt) 4 Mg Tab.rapdis, 4 MG SL Q4H Prescribed by: PAVEL JOY on 07/16/16 2311 Ondansetron (Zofran Odt) 8 Mg Tab.rapdis, 8 MG PO Q6H PRN for NAUSEA/VOMITING- 1ST LINE Prescribed by: BUSHRA MANCILLA on 09/18/17 1047 Pantoprazole Sodium (Protonix) 40 Mg Tablet.dr, 40 MG PO DAILY Prescribed by: BUSHRA MANCILLA on 06/07/172004 Risperidone (Risperidone Odt) 0.25 Mg Tab.rapdis, 0.25 MG PO HS PRN for BAD THOUGHTS , (Reported) Entered as Reported by: EMMANUEL SANTOS on 02/25/161657 Sumatriptan Succinate (Sumatriptan Succinate) 100 Mg Tablet, (Reported) Entered as Reported by: EMMANUEL SANTOS on 11/15/16 1658 Topiramate (Topiramate) 100 Mg Tablet, 150 MG PO BID, (Reported) Entered as Reported by: PAULA CHONG on 02/25/16 1358 Topiramate (Topamax) 50 Mg Tablet, 50 MG PO BID Prescribed by: SASCHA RIOS on 11/04/18 1338 Tramadol HCl (Tramadol HCl) 50 Mg Tablet, 50 MG PO Q6H PRN for PAIN, (Reported) Entered as Reported by: PAULA CHONG on 11/02/15 1820 Trazodone HCl (Trazodone HCl) 50 Mg Tablet, 50-100 MG PO HS PRN for SLEEP, (Reported) Entered as Reported by: EMMANUEL SANTOS on 02/25/16 1658 [Water Pill Otc ] , (Reported) Entered as Reported by: TAMIKA FUNG on 03/01/16 1153 Review of Systems Review of Systems Constitutional: see HPI Eyes: See HPI Ears, Nose, Mouth, Throat: no symptoms reported Respiratory: no symptoms reported Cardiovascular: other (HAD A LITTLE CHEST PRESSURE EARLIER, NOT NOW) Gastrointestinal: see HPI Genitourinary: see HPI Musculoskeletal: no symptoms reported Skin: no symptoms reported Psychiatric/Neurological: See HPI; Denies Cognitive Dysfunction; Headache, Other (PER HPI) Endocrine: No Symptoms Reported Hematologic/Lymphatic: No Symptoms Reported Past Pyamqtk-Qeaubz-Dpjwfv Hx Patient Social History Tobacco Use?: Yes Tobacco type used: Cigarettes Smoking Status: Current Everyday Smoker Substance use?: Yes Substance type: Methamphetamine Alcohol Use?: Yes Immunizations Up To Date Tetanus Booster (TDap): More than 5yrs PED Vaccines UTD: No Seasonal Allergies Seasonal Allergies: No Past Medical History Surgeries: Yes (ECTOPIC ) Appendectomy, Section, Gallbladder, Hysterectomy, Oophorectomy, Tubal Ligation Respiratory: Yes Pneumonia, COPD Currently Using CPAP: No Currently Using BIPAP: No Cardiac: Yes Hypertension Neurological: Yes (CHRONIC HEADACHES) Dementia, Headaches /Migraines, Seizure Disorder, Traumatic Brain Injury 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 Disorders: No Female 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 Disorders: 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, 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 Sexually Transmitted Disease: No HIV/AIDS: No Genitourinary: Yes Bladder Infection, Kidney Stones, Renal Failure, UTI-Chronic Gastrointestinal: Yes (ALCOHOLISM) Gastroesophageal Reflux Musculoskeletal: Yes (L2 COMPRESSION FX 03/01/17; CHRONIC NECK AND BACK PAIN ) Degenerate Disk Disease, Fibromyalgia, Back Injury, Chronic Back Pain, Fractures Endocrine: Yes (OBESITY) Hypothyroidsim Loss of Vision: Denies Hearing Impairment: Denies Cancer: No Psychosocial: Yes Anxiety, Bipolar, Schizophrenia, Depression Integumentary: Yes (MRSA) Blood Disorders: No Adverse Reaction/Blood Tranf: No Family Medical History Arthritis 19 MOTHER GRANDMOTHER Cataracts GRANDMOTHER GRANDMOTHER Congenital heart disease 19 FATHER Diabetes mellitus 19 MOTHER FH: defects GRAND-DAUGHTER (3 LUNGS, 36 FINGER AND TOES) FH: brain aneurysm FH: irritable bowel syndrome 19 MOTHER FH: ovarian cancer PATERNAL AUNTS FH: pneumonia 19 MOTHER FH: uterine cancer PATERNAL AUNTS Glaucoma GRANDMOTHER GRANDMOTHER Kidney infection 19 FATHER Visual disorder GRANDMOTHER GRANDMOTHER Diabetes, Psychiatric Problems, Renal Disease, Stroke, Vascular Disease SOCIAL HISTORY: -SMOKES 2 PPD -ETOH--HISTORY OF ABUSE--HEAVY/DAILY USE "TO THE POINT OF PASSING OUT" EVERY DAY--CLAIMS NO RECENT USE PER PT ON 06/16/21 -DRUGS--HX OF IV METH USE, THC USE, RX DRUGS--CLAIMS NO RECENT USE, PER PT ON 06/16/21 PT HAS HISTORY OF HOMELESSENESS PT CURRENTLY LIVING WITH AN AUNT OF 06/16/21 PT WITH LONG HISTORY OF NON-COMPLIANCE IN ALL ASPECTS OF CARE Physical Exam Vital Signs Vital Signs - First Documented 06/16/21 18:10 Temp 36.8 Pulse 80 Resp 18 B/P (MAP) 135/88 (104) Pulse Ox 96 Capillary Refill : Height, Weight, BMI Height: 5'4.00" Weight: 174lbs. 0oz. 78.422170mt; 35.4 BMI Method:Stated General Appearance: WD/WN, no apparent distress HEENT: PERRL/EOMI, TMs normal, pharynx normal, other (RIGHT FACIAL DROOP--FOREHEAD AND EYE MUSCLES SPARED--LOWER HALF OF RIGHT SIDE OF FACE IS AFFECTED. TONGUE DEVIATES TO LEFT. VERY POOR DENTITION. HAS SENSATION, BUT STATES THAT SHE HAS SLIGHTLY DECREASED SENSATION TO LEFT SIDE OF FACE COMPARED TO RIGHT) Neck: non-tender, full range of motion, supple, normal inspection; No carotid bruit Respiratory: normal breath sounds, no respiratory distress, no accessory muscle use Cardiovascular: normal peripheral pulses, regular rate, rhythm, no edema, no JVD, no murmur Gastrointestinal: non tender, soft Back: no CVA tenderness Extremities: normal range of motion, non-tender, normal inspection, no pedal edema, no calf tenderness, normal capillary refill Neurologic/Psychiatric: alert, normal mood/affect, oriented x 3; No abnormal cerebellar tests, No EOM palsy; facial droop (RIGHT FACIAL DROOP--FOREHEAD AND PERIORBITAL MUSCLES SPARED. ), other (STATES LEFT SIDE OF FACE HAS A LITTLE BIT LESS SENSATION THAN RIGHT SIDE, AND STATES HER LEFT ARM HAS A LITTLE BIT LESS SENSATION THAN RIGHT ARM--BUT DOES HAVE SENSATION TO LIGHT TOUCH. NORMAL LOGIWA-DL-[id number] AND OIUZ-BY-KPBZ. NO MOTOR DEFICITS TO EXTREMITIES. WALKS WITHOUT DIFFICULTY) Crainal Nerves: normal hearing, normal speech, PERRL, facial droop; No gaze palsy; other (SPEECH APPEARS NORMAL TO MYSELF AND NURSE) Coordination/Gait: normal finger to nose, normal gait, negative Romberg's sign Motor/Sensory: no motor deficit, no pronator drift Skin: normal color, warm/dry Stroke Onset of Symptoms Symptoms onset unknown: Yes (WOKE UP AT 1600 WITH IT, WENT TO SLEEP AT 1330) NIH Stroke Scale Assessment Select: Initial Level of Consciousness: 0=Alert (0), Level of Consciousness- Questions: 0=Answers both month/age (0), LOC Commands: 0=Performs both tasks (0), Gaze: Normal (0), Visual Bhardwaj: 0=No visual loss (0), Facial Movement (Facial Paresis): 2=Partial paralysis (2), Motor Function-Arms Right: 0=No drift (0), Motor Function-Arms Left: 0=No drift (0), Motor Function-Legs Right: 0=No drift (0), Motor Function-Legs Left: 0=No drift (0), Limb Ataxia: 0=Absent (0), Sensory: 1=Mild to Moderate loss SUBJECTIVE SLIGHLY DECREASED SENSATION, BUT PT DOES HAVE SENSATION TO LIGHT TOUCH (1), Best Language: 0=No aphasia (0), Dysarthria: 0=Normal (0), Extinction & Inattention: 0=No abnormality (0), Total: 3 Stroke Thrombolytic Exclusion Age 18 or Over: Yes Acute intenal hemorrhage: No History of CVA: No Uncontrolled Coagulation Defec: No Intracranial Hemorrhage: No Severe Hypertension: No GI or Bleed: No Subarachnoid Hemorrhage: No Intracranial Neoplasm/Aneurysm: No Oral Anticoagulants: No Surgery or Trauma: No Puncture of Non-Compressible V: No Recent CPR: No Diabetic Hemorrhagic Retinopat: No Organ Biopsy: No Recent Obstetric Delivery: No Glucose: No Significant Hepatic Dysfunctio: No NIH Stoke Scale >22: No Bacterial Endocarditis: No Pericarditis: No Improving Symptoms: No Platelets: No IV - TPa Received IV - TPa Procedure Performed?: No (NIH IS 2-3, ONSET IS UNKNOWN, BUT LKWT > 3 HOURS. ) Progress/Results/Core Measures Results/Orders Lab Results Laboratory Tests Test 06/16/21 18:10 06/16/21 18:11 06/16/21 19:56 Range/Units White Blood Count 10.3 4.3-11.0 10^3/uL Red Blood Count 4.78 3.80-5.11 10^6/uL Hemoglobin 14.4 11.5-16.0 g/dL Hematocrit 43 35-52 % Mean Corpuscular Volume 91 80-99 fL Mean Corpuscular Hemoglobin 30 25-34 pg Mean Corpuscular Hemoglobin Concent 33 32-36 g/dL Red Cell Distribution Width 14.1 10.0-14.5 % Platelet Count 349 130-400 10^3/uL Mean Platelet Volume 8.9 L 9.0-12.2 fL Immature Granulocyte % (Auto) 1 % Neutrophils (%) (Auto) 61 42-75 % Lymphocytes (%) (Auto) 26 12-44 % Monocytes (%) (Auto) 8 0-12 % Eosinophils (%) (Auto) 3 0-10 % Basophils (%) (Auto) 1 0-10 % Neutrophils # (Auto) 6.3 1.8-7.8 10^3/uL Lymphocytes # (Auto) 2.7 1.0-4.0 10^3/uL Monocytes # (Auto) 0.8 0.0-1.0 10^3/uL Eosinophils # (Auto) 0.3 0.0-0.3 10^3/uL Basophils # (Auto) 0.1 0.0-0.1 10^3/uL Immature Granulocyte # (Auto) 0.1 0.0-0.1 10^3/uL Prothrombin Time 12.3 12.2-14.7 SEC INR Comment 0.9 0.8-1.4 Activated Partial Thromboplast Time 31 24-35 SEC D-Dimer < 0.27 0.00-0.49 UG/ML Sodium Level 138 135-145 MMOL/L Potassium Level 3.3 L 3.6-5.0 MMOL/L Chloride Level 105 98-107 MMOL/L Carbon Dioxide Level 23 21-32 MMOL/L Anion Gap 10 5-14 MMOL/L Blood Urea Nitrogen 10 7-18 MG/DL Creatinine 0.74 0.60-1.30 MG/DL Estimat Glomerular Filtration Rate 99 BUN/Creatinine Ratio 14 Glucose Level 86 70-105 MG/DL Calcium Level 9.4 8.5-10.1 MG/DL Corrected Calcium 9.4 8.5-10.1 MG/DL Magnesium Level 1.9 1.6-2.4 MG/DL Total Bilirubin 0.3 0.1-1.0 MG/DL Aspartate Amino Transf (AST/SGOT) 18 5-34 U/L Alanine Aminotransferase (ALT/SGPT) 17 0-55 U/L Alkaline Phosphatase 109 40-136 U/L Troponin I < 0.028 <0.028 NG/ML Total Protein 7.4 6.4-8.2 GM/DL Albumin 4.0 3.2-4.5 GM/DL Serum Test, Qualitative NEGATIVE NEGATIVE Serum Alcohol < 10 <10 MG/DL Glucometer 87 70-110 MG/DL Urine Color YELLOW Urine Clarity CLEAR Urine pH 5.5 5-9 Urine Specific [place] <=1.005 1.016-1.022 Urine Protein NEGATIVE NEGATIVE Urine Glucose (UA) NEGATIVE NEGATIVE Urine Ketones NEGATIVE NEGATIVE Urine Nitrite NEGATIVE NEGATIVE Urine Bilirubin NEGATIVE NEGATIVE Urine Urobilinogen 0.2 < = 1.0 MG/DL Urine Leukocyte Esterase NEGATIVE NEGATIVE Urine RBC (Auto) NEGATIVE NEGATIVE Urine RBC NONE /HPF Urine WBC 2-5 /HPF Urine Squamous Epithelial Cells 0-2 /HPF Urine Renal Epithelial Cells NONE /HPF Urine Crystals NONE /LPF Urine Bacteria NEGATIVE /HPF Urine Casts NONE /LPF Urine Mucus NEGATIVE /LPF Urine Culture Indicated NO Urine Opiates Screen NEGATIVE NEGATIVE Urine Oxycodone Screen NEGATIVE NEGATIVE Urine Methadone Screen NEGATIVE NEGATIVE Urine Propoxyphene Screen NEGATIVE NEGATIVE Urine Barbiturates Screen NEGATIVE NEGATIVE Ur Tricyclic Antidepressants Screen NEGATIVE NEGATIVE Urine Phencyclidine Screen NEGATIVE NEGATIVE Urine Amphetamines Screen NEGATIVE NEGATIVE Urine Methamphetamines Screen NEGATIVE NEGATIVE Urine Benzodiazepines Screen NEGATIVE NEGATIVE Urine Cocaine Screen NEGATIVE NEGATIVE Urine Cannabinoids Screen NEGATIVE NEGATIVE My Orders Orders - BEAR KRISHNAMURTHY DO Cbc With Automated Diff (06/16/21 18:10) Protime With Inr (06/16/21 18:10) Partial Thromboplastin Time (06/16/21 18:10) Comprehensive Metabolic Panel (06/16/21 18:10) Fibrin Degradation Products (06/16/21 18:10) Troponin I [place] (06/16/21 18:10) Hcg,Qualitative Serum (06/16/21 18:10) Ua Culture If Indicated (06/16/21 18:10) Chest 1 View, Ap/Pa Only (06/16/21 18:10) Catheter(Urinary) Insert & Ass 03,15 (06/16/21 18:10) Ekg Tracing (06/16/21 18:10) Nothing By Mouth (06/16/21 Dinner) Accucheck Stat ONCE (06/16/21 18:10) Ed Iv/Invasive Line Start (06/16/21 18:10) Ed Iv/Invasive Line Start (06/16/21 18:10) Vital Signs Stroke Patient Q15M (06/16/21 18:10) Ct Head Wo-R/O Stroke (06/16/21 18:10) O2 (06/16/21 18:10) Intake & Output 06,14,22 (06/16/21 18:10) Monitor-Rhythm Ecg Trace Only (06/16/21 18:10) Dysphagia Screening Tool Q10MX1 (06/16/21 18:10) Alcohol (06/16/21 18:10) Drug Screen Stat (Urine) (06/16/21 18:10) Magnesium (06/16/21 18:10) Ct Angio Head/Neck (06/16/21 18:43) Iohexol Injection (Omnipaque 350 Mg/Ml 1 (06/16/21 19:00) Received Contrast (Hold Metformin- Contr (06/16/21 19:00) Ns (Ivpb) (Sodium Chloride 0.9% Ivpb Bag (06/16/21 19:00) Aspirin Chewable Tablet (Baby Aspirin Ch (06/16/21 20:15) Ed Admission (Communication) (06/16/21 20:15) Medications Given in ED Current Medications Medications Dose Ordered Sig/Fela Route Start Time Stop Time Status Last Admin Dose Admin Aspirin 324 mg ONCE ONCE PO 06/16/21 20:15 06/16/21 20:16 DC 06/16/21 20:30 324 MG Iohexol 75 ml ONCE ONCE IV 06/16/21 19:00 06/16/21 19:02 DC 06/16/21 19:34 75 ML Sodium Chloride 100 ml ONCE ONCE IV 06/16/21 19:00 06/16/21 19:02 DC 06/16/21 19:34 80 ML Vital Signs/I&O 06/16/21 18:10 Temp 36.8 Pulse 80 Resp 18 B/P (MAP) 135/88 (104) Pulse Ox 96 FSBG Bedside Testing Finger Stick Blood Glucose: 84 Progress Progress Note : Progress Note NO DETERIORATION IN PT'S CONDITION DURING ER STAY Initial ECG Impression Date: Jun 16, 2021 Initial ECG Impression Time: 18:04 Initial ECG Rate: 78 Initial ECG Rhythm: Normal Sinus Diagnostic Imaging Comments CT HEAD--PER RADIOLOGIST REPORT AT 1842 FINDINGS: Ventricles and sulci are within normal limits for size. There is no intracranial hemorrhage identified. There is no abnormal mass effect or shift of midline structures. IMPRESSION: Unremarkable CT of the head. CXR--PER RADIOLOGIST REPORT AT 1842 Heart size and pulmonary vascularity are normal. Lungs are clear. There are no effusions or pneumothoraces. IMPRESSION: No acute abnormalities in the chest CT ANGIOGRAM HEAD/NECK--PER RADIOLOGIST REPORT AT 1954 CTA NECK: There is a 4 vessel branching pattern arising from the aortic arch. There is mild motion artifact at the level of the origin of the great vessels. Otherwise, the carotid and vertebral arteries are widely patent. No intimal abnormality, stenosis or occlusion is identified. Note is made of heterogeneous enlargement of the thyroid gland which may be due to goiter. CTA HEAD: Anterior, middle and posterior cerebral arteries are patent. No stenosis or occlusion is identified. There is no evidence of filling defect. No abnormal contrast enhancement is identified. IMPRESSION: No CTA evidence of great vessel abnormality in the neck or head. Enlargement of the thyroid gland may be related to goiter although clinical correlation is recommended. Reviewed: Reviewed by Wi Departure Communication (Admissions) 1956--SPOKE WITH DR. HAMILTON, HOSPITALIST FOR [facility]. ADVISES TO CONSULT JARED. 1958--CALLED [facility]VIN STROKE NEUROLOGIST, WILL CALL BACK. 2007--SPOKE WITH DR. STERLING, STROKE NEUROLOGIST, HE ADVISES THAT PT MAY POSSIBLY HAVE A SMALL VESSEL INFARCT OF BASAL GANGLIA OR BRAINSTEM, BASED ON SYMPTOMS AND CTA FINDINGS. HE ADVISES TO GIVE FULL ASPIRIN, AND OBTAIN MRI, ECHOCARDIOGRAM, ETC. 2011--SPOKE WITH DR. HAMILTON, ACCEPTS PT FOR ADMIT. SHE WILL PUT IN ADMIT ORDERS. Impression Primary Impression: RIGHT FACIAL DROOP Disposition: ADMITTED INPATIENT Condition: Stable Admissions Decision to Admit Reason: Admit from ER (General) Decision to Admit/Date: Jun 16, 2021 Time/Decision to Admit Time: 20:12 Departure-Patient Inst. Referrals: NO,LOCAL PHYSICIAN (PCP/Family) Primary Care Physician BEAR KRISHNAMURTHY DO Jun 16, 2021 18:25
[2021-06-16 18:28] LABS: CHLORIDE 105 MMOL/L (98-107); POTASSIUM 3.3 MMOL/L (3.6-5.0); SODIUM 138 MMOL/L (135-145)
[2021-06-16 18:29] LABS: CALCIUM 9.4 MG/DL (8.5-10.1)
[2021-06-16 18:31] LABS: GLUCOSE 86 MG/DL (70-105); TOTAL PROTEIN 7.4 GM/DL (6.4-8.2)
[2021-06-16 18:32] LABS: CARBON DIOXIDE 23 MMOL/L (21-32)
[2021-06-16 18:33] LABS: BILIRUBIN,TOTAL 0.3 MG/DL (0.1-1.0)
[2021-06-16 18:34] LABS: ALKALINE PHOSPHATASE 109 U/L (40-136); CREATININE SERUM 0.74 MG/DL (0.60-1.30); GFR ESTIMATED 99
--- NOTE | 2021-06-16 18:34 | Diagnostic Imaging Report ---
PROCEDURE: CT head wo r/o stroke. TECHNIQUE: Multiple contiguous axial images were obtained through the brain without the use of intravenous contrast. Auto Exposure Controls were utilized during the CT exam to meet ALARA standards for radiation dose reduction. INDICATION: Neurologic deficit CT HEAD: CT images of the head were obtained. FINDINGS: Ventricles and sulci are within normal limits for size. There is no intracranial hemorrhage identified. There is no abnormal mass effect or shift of midline structures. IMPRESSION: Unremarkable CT of the head. Dictated by: Dictated on workstation # [id number]
[2021-06-16 18:35] LABS: BUN/CREATININE RATIO 14
[2021-06-16 18:37] LABS: ALANINE AMINOTRANSFERASE 17 U/L (0-55); MAGNESIUM 1.9 MG/DL (1.6-2.4)
[2021-06-16 18:39] LABS: FIBRIN DEGRADATION PRODUCTS < 0.27 UG/ML (0.00-0.49); INR 0.9 (0.8-1.4); PARTIAL THROMBOPLASTIN TIME 31 SEC (24-35); PROTHROMBIN TIME PATIENT 12.3 SEC (12.2-14.7)
--- NOTE | 2021-06-16 18:41 | Diagnostic Imaging Report ---
Indication: Hypertension Portable chest 6:39 PM Heart size and pulmonary vascularity are normal. Lungs are clear. There are no effusions or pneumothoraces. IMPRESSION: No acute abnormalities in the chest Dictated by: Dictated on workstation # [id number]
[2021-06-16] MEDS ORDERED: HOLD METFORMIN - RECEIVED CONTRAST 20 ML VIAL IV SCH (19:00)
[2021-06-16] MEDS ORDERED: NS 100 ML (IVPB) BAG IV ONE (19:00)
[2021-06-16] MEDS ORDERED: IOHEXOL 350 MG/ML 100 ML (OMNIPAQUE 350) VIAL IV ONE (19:00)
--- NOTE | 2021-06-16 19:46 | Diagnostic Imaging Report ---
PROCEDURE: CT angiography of the head and CT angiography of the neck with and without contrast. TECHNIQUE: Contiguous noncontrast images were obtained from the skull base through the vertex. After intravenous contrast administration, helical CT angiography of the neck was performed. Source data was reformatted into 3D MIP projections. Delayed post contrast acquisition was also obtained. Auto Exposure Controls were utilized during the CT exam to meet ALARA standards for radiation dose reduction. INDICATION: Right facial droop. CTA NECK: There is a 4 vessel branching pattern arising from the aortic arch. There is mild motion artifact at the level of the origin of the great vessels. Otherwise, the carotid and vertebral arteries are widely patent. No intimal abnormality, stenosis or occlusion is identified. Note is made of heterogeneous enlargement of the thyroid gland which may be due to goiter. CTA HEAD: Anterior, middle and posterior cerebral arteries are patent. No stenosis or occlusion is identified. There is no evidence of filling defect. No abnormal contrast enhancement is identified. IMPRESSION: No CTA evidence of great vessel abnormality in the neck or head. Enlargement of the thyroid gland may be related to goiter although clinical correlation is recommended. Dictated by: Dictated on workstation # [id number]
[2021-06-16 20:02] LABS: BILIRUBIN,URINE NEGATIVE (NEGATIVE); CLARITY,URINE CLEAR; COLOR,URINE YELLOW; GLUCOSE, URINE (UA) NEGATIVE (NEGATIVE); KETONES,URINE NEGATIVE (NEGATIVE); LEUKOCYTE ESTERASE ,URINE NEGATIVE (NEGATIVE); NITRITE,URINE NEGATIVE (NEGATIVE); PH,URINE 5.5 (5-9); PROTEIN,URINE NEGATIVE (NEGATIVE)
[2021-06-16 20:13] LABS: BACTERIA,URINE NEGATIVE /HPF; SQUAMOUS EPITHELIAL CELL,UR 0-2 /HPF
[2021-06-16] MEDS ORDERED: ASPIRIN 81 MG CHEW (CHILDREN'S ASA) PO ONE (20:15)
[2021-06-16 20:18] LABS: AMPHETAMINE SCREEN, URINE NEGATIVE (NEGATIVE); BARBITURATE SCREEN URINE NEGATIVE (NEGATIVE); BENZODIAZEPINES SCREEN URINE NEGATIVE (NEGATIVE); CANNABINOID SCREEN, URINE NEGATIVE (NEGATIVE); COCAINE SCREEN URINE NEGATIVE (NEGATIVE); METHADONE STAT NEGATIVE (NEGATIVE); METHAMPHETAMINE SCREEN URINE S NEGATIVE (NEGATIVE); OPIATE SCREEN URINE NEGATIVE (NEGATIVE); OXYCODONE STAT NEGATIVE (NEGATIVE); PROPOXYPHENE STAT NEGATIVE (NEGATIVE); TRICYCLIC ANTIDEPRESSANTS SCRE NEGATIVE (NEGATIVE)
--- NOTE | 2021-06-16 21:08 | Tele-ICU Consult ---
History of Present Illness History of Present Illness Date Seen by Provider: Jun 16, 2021 Time Seen by Provider: 20:35 Date of Admission This virtual visit was conducted using real time audio/video. Thank you for asking us to see this patient for R facial droop PMH: COPD, subst. abuse, htn., kidney stone, GERD, Hypothy., seizures. SH: smoking history Y FH: Non-contributory ROS: as in HPI. PE: VSS. O2 sat 97% on RA HEENT: No obvious masses, adenopathy or JVD. Chest: clear to auscultation. CV: RRR S1 S2 No murmur or added sounds. Abd: Non-tender. Bowel sounds Y. : Unremarkable. Kelley N. ADMISSIONS CONSULTANT/psychiatric: R facial droop Extremities: edema. Capillary refill < 3 seconds. Skin: unremarkable. Results: Decreased K 3.3.. CXR, CTH, CAH+ neck all unremarkable. Available chart/ vitals / labs / images reviewed. Video assessment done using teleICU camera, rest of exam as per RN. A/P: Critical Care: critically ill patient. Cont. neuro checks. Replace K. Add SCDs Discussed with RAJEEV Figueroa. Asked RN to reach out to eICU if any questions or concerns later. Time spent with patient/coordination of care with other health professionals (mins): Allergies and Home Medications Allergies Coded Allergies: Sulfa (Sulfonamide Antibiotics) (Unverified Allergy, Severe, 11/30/06) PT STATES SHE'S "DEATHLY" ALLERGIC TO SULFA amoxicillin (Unverified Allergy, Severe, 11/30/06) Penicillins (Verified Allergy, Unknown, 12/22/06) moxifloxacin (Verified Allergy, Unknown, "HIGH FEVER, DIDN'T WAKE UP", CAN TAKE LEVAQUIN W/O PROBLEM, 12/22/06) Uncoded Allergies: AVALOX (Allergy, Intermediate, 11/30/06) FEVER AND VOMITTING Home Medications Albuterol Sulfate 18 Gm Hfa.aer.ad, 2 PUFF IH Q4H PRN for SHORTNESS OF BREATH, (Reported) Albuterol Sulfate 2.5 Mg/3 Ml Vial.neb, 2.5 MG IH Q4H PRN for SHORTNESS OF BREATH Prescribed by: LIZBETH COFFMAN on 02/26/16 1403 Alprazolam 0.5 Mg Tablet, 0.5 MG PO BID PRN for ANXIETY, (Reported) Brexpiprazole 0.5 Mg Tablet, 0.5 MG PO UD, (Reported) FILLED 02/19/16 #30 1 TAB PO QD X 10 DAYS; THEN 2 TABS QD THEREAFTER Cephalexin 500 Mg Capsule, 500 MG PO TID Prescribed by: BUSHRA MANCILLA on 09/18/17 104 Cephalexin 500 Mg Tablet, 500 MG PO QID Prescribed by: SASCHA RIOS on 11/04/18 1338 Cyclobenzaprine HCl 10 Mg Tablet, 10 MG PO Q8H Prescribed by: BEAR KRISHNAMURTHY on 03/01/17 0219 Fluoxetine HCl 40 Mg Capsule, 40 MG PO DAILY, (Reported) Gabapentin 800 Mg Tablet, 800 MG PO TID, (Reported) Hydrocodone Bit/Acetaminophen 1 Each Tablet, 1-2 EACH PO Q6H PRN for PAIN Prescribed by: PAVEL JOY on 03/08/17 1426 Hydrocodone/Ibuprofen 1 Each Tablet, 1 EACH PO Q 4 HOURS Prescribed by: BEAR KRISHNAMURTHY on 03/01/17 021 Hydroxyzine Pamoate 50 Mg Capsule, 50 MG PO BID PRN for ANXIETY, (Reported) Ibuprofen 800 Mg Tablet, 800 MG PO TID PRN for PAIN, (Reported) Ivermectin 3 Mg Tablet, 3 MG PO ONCE Prescribed by: PAVEL JOY on 03/01/16 1230 Levothyroxine Sodium 125 Mcg Tablet, 125 MCG PO DAILY, (Reported) Lisinopril/Hydrochlorothiazide 1 Each Tablet, 1 TAB PO DAILY, (Reported) Omeprazole 40 Mg Capsule.dr, 40 MG PO DAILY, (Reported) Ondansetron 4 Mg Tab.rapdis, 4 MG SL Q4H Prescribed by: PAVEL JOY on 07/16/16 2311 Ondansetron 8 Mg Tab.rapdis, 8 MG PO Q6H PRN for NAUSEA/VOMITING-1ST LINE Prescribed by: BUSHRA MANCILLA on 09/18/17 104 Pantoprazole Sodium 40 Mg Tablet.dr, 40 MG PO DAILY Prescribed by: BUSHRA MANCILLA on 06/07/172004 Risperidone 0.25 Mg Tab.rapdis, 0.25 MG PO HS PRN for BAD THOUGHTS , (Reported) Topiramate 100 Mg Tablet, 150 MG PO BID, (Reported) TAKES 1 & 1/2 OF A (100 MG) TABLETS Topiramate 50 Mg Tablet, 50 MG PO BID Prescribed by: SASCHA RIOS on 11/04/18 1338 Tramadol HCl 50 Mg Tablet, 50 MG PO Q6H PRN for PAIN, (Reported) Trazodone HCl 50 Mg Tablet, 50-100 MG PO HS PRN for SLEEP, (Reported) TAKES 1-2 (50 MG) TABLETS Past Medical/Social/Family Hx Patient Social History Tobacco Use?: No Smoking Status: Former Smoker Use of E-Cig and/or Vaping dev: Yes E-Cig or Vaping type used: Nicotine E-Cig and/or Vaping Freq: Current Everyday User Substance use?: No Alcohol Use?: No Pt stated abuse/neglect: No Immunizations Up To Date Hepatitis A: No Hepatitis B: No TB Skin Test: None Date of Pneumonia Vaccine: Nov 26, 1999 Current Status Advance Directives: No Primary Language: Lao Preferred Spoken Language: Lao Past Medical History PMH: COPD hx MRSA GERD Hypothyroidism Migraine DUNCAN Depression Review of Systems Constitutional: see HPI Respiratory: see HPI Cardiovascular: see HPI Gastrointestinal: see HPI Genitourinary: see HPI Musculoskeletal: see HPI Skin: see HPI Psychiatric/Neurological: See HPI All Other Systems Reviewed Negative Unless Noted: Yes Focused Exam Height, Weight, BMI Height: 5'4.00" Weight: 174lbs. 0oz. 78.551110gu; 40.00 BMI Method:Stated Exam Exam Patient acknowledged, consented, and participated in this virtual visit which was conducted using real time audio/video Vital Signs Date Time Temp Pulse Resp B/P (MAP) Pulse Ox O2 Delivery O2 Flow Rate FiO2 06/16/21 20:52 64 18 114/82 97 Room Air 06/16/21 18:10 36.8 80 18 135/88 (104) 96 Height & Weight Height: 5'4.00" Weight: 174lbs. 0oz. 78.231471lh; 40.00 BMI Method:Stated General Appearance: No Apparent Distress Capillary Refill: Less Than 3 Seconds Peripheral Pulses: 1+ Dorsalis Pedis (R), 1+ Left Dors-Pedis (L) Gastrointestinal: non tender, soft Results Lab Laboratory Tests 06/16/21 18:10 Assessment/Plan Assessment/Plan See free text. Critical Care: Critically Ill Patient RUTHIE RAMIREZ MD Jun 16, 2021 21:08
[2021-06-16] MEDS ORDERED: ACETAMINOPHEN 325 MG TABLET PO PRN (21:15)
[2021-06-16] MEDS ORDERED: polyethylene glycoL POWDER 17 GM (MIRALAX) PACK PO PRN (21:15)
[2021-06-16] MEDS ORDERED: ANTACID SUSP 30 ML UDC (MYLANTA) PO PRN (21:15)
[2021-06-16] MEDS ORDERED: LORazepam INJ 2 MG/ML (ATIVAN) VIAL IVP PRN (21:15)
[2021-06-16] MEDS ORDERED: MELATONIN 3 MG TABLET PO PRN (21:15)
[2021-06-16] MEDS ORDERED: LACTULOSE SYRUP 10GM/15ML (ENULOSE) 30ML UDC PO PRN (21:15)
[2021-06-16] MEDS ORDERED: morphine INJ 4 MG/ML 1 ML (VIAL/SYRINGE) IV PRN (21:15)
[2021-06-16] MEDS ORDERED: diphenhydrAMINE 50 MG/ML INJ (BENADRYL) IVP PRN (21:15)
[2021-06-16] MEDS ORDERED: MILK OF MAGNESIA 400 MG/5 ML 30 ML UDC PO PRN (21:15)
[2021-06-16] MEDS ORDERED: diphenhydrAMINE 25 MG TAB (BENADRYL) PO PRN (21:15)
[2021-06-16] MEDS ORDERED: ONDANSETRON 4 MG/2 ML (SDV) Z0FRAN IV PRN (21:15)
[2021-06-16] MEDS ORDERED: ONDANSETRON 4 MG (ZOFRAN) ORAL DISSOLVE TAB PO PRN (21:15)
[2021-06-16] MEDS ORDERED: BISACODYL 10 MG SUPP (DULCOLAX) PR PRN (21:15)
[2021-06-16] MEDS ORDERED: CALCIUM CARBONATE 500 MG (TUMS) TAB.CHEW PO PRN (21:15)
[2021-06-16] MEDS ORDERED: NS IV 1000 ML 1,000 ML IV SCH (21:15)
[2021-06-16] MEDS ORDERED: KCL 20 MEQ TAB (K-DUR) PO ONE (22:00)
[2021-06-16] MEDS: ENOXAPARIN 40 MG/0.4 ML (LOVENOX) SYR SC SCH (22:01)
[2021-06-17] VITALS (8 sets, daily range): BP systolic 94–132; BP diastolic 58–88
[2021-06-17] MEDS ORDERED: KCL 20 MEQ TAB (K-DUR) PO ONE
[2021-06-17] MEDS ORDERED: RT-ALBUTEROL SULF 2.5 MG/3 ML PRE-MIX VIAL INH PRN ×2 (00:15→10:30)
[2021-06-17 04:53] LABS: BASOPHILS # (AUTO) 0.1 10^3/uL (0.0-0.1); BASOPHILS % (AUTO) 1 % (0-10); EOSINOPHILS # (AUTO) 0.3 10^3/uL (0.0-0.3); EOSINOPHILS % (AUTO) 3 % (0-10); HEMATOCRIT 41 % (35-52); HEMOGLOBIN 13.5 g/dL (11.5-16.0); LYMPHOCYTES # (AUTO) 2.9 10^3/uL (1.0-4.0); LYMPHOCYTES % (AUTO) 32 % (12-44); MEAN CORPUSCULAR HEMOGLOBIN 30 pg (25-34); MEAN CORPUSCULAR HGB CONC 33 g/dL (32-36); MEAN CORPUSCULAR VOLUME 91 fL (80-99); MEAN PLATELET VOLUME 9.2 fL (9.0-12.2); MONOCYTES # (AUTO) 0.9 10^3/uL (0.0-1.0); MONOCYTES % (AUTO) 9 % (0-12); NEUTROPHILS % (AUTO) 54 % (42-75); PLATELET COUNT 319 10^3/uL (130-400); WHITE BLOOD COUNT 9.2 10^3/uL (4.3-11.0)
[2021-06-17 05:06] LABS: ALBUMIN 3.6 GM/DL (3.2-4.5); POTASSIUM 4.2 MMOL/L (3.6-5.0)
[2021-06-17 05:07] LABS: CALCIUM 8.9 MG/DL (8.5-10.1)
[2021-06-17 05:10] LABS: BILIRUBIN,TOTAL 0.4 MG/DL (0.1-1.0)
[2021-06-17 05:11] LABS: PHOSPHORUS 4.2 MG/DL (2.3-4.7)
[2021-06-17 05:12] LABS: CREATININE SERUM 0.69 MG/DL (0.60-1.30)
[2021-06-17 05:15] LABS: MAGNESIUM 2.1 MG/DL (1.6-2.4)
[2021-06-17] MEDS ORDERED: KCL 20 MEQ TAB (K-DUR) PO SCH (06:00)
[2021-06-17] MEDS ORDERED: POTASSIUM CL 10MEQ/50ML IVPB 50 ML IV SCH (06:00)
[2021-06-17] MEDS ORDERED: MAGNESIUM 1 GM/100 ML IVPB 100 ML IV SCH (06:00)
[2021-06-17] MEDS: ENOXAPARIN 40 MG/0.4 ML (LOVENOX) SYR SC SCH (07:54)
--- NOTE | 2021-06-17 08:05 | Diagnostic Imaging Report ---
INDICATION: Right facial droop, stroke. Carotid Doppler study performed in the routine fashion with color flow Doppler waveform analysis. There is mild plaquing visualized in the carotid bifurcations. Velocities and ratios are within normal range on both sides with ICA to CCA systolic velocity ratio of 1.05 on the right side and 0.83 on the left side. Both vertebrals show antegrade flow. Incidental note is made of diffuse heterogeneity of the thyroid gland, suggest thyroid sonography if clinically warranted. Parameters based on the consensus panel Robles-Scale and Doppler ultrasound criteria published February 2003, Radiology, Volume 229. DOPPLER (peak systolic velocity M/S Right Left CCA .89 1.09 ICA Proximal .89 .91 ICA Mid .75 .70 ICA Distal .94 .45 RATIO 1.05 .83 ECA 1.05 .95 VERT .53 .50 IMPRESSION: Patent carotid territories bilaterally with no significant stenosis. Both vertebrals are patent with antegrade flow. Dictated by: Dictated on workstation # [id number]
[2021-06-17] MEDS ORDERED: SENNOSIDES 8.6 MG (SENOKOT) TAB PO SCH (09:00)
[2021-06-17] MEDS ORDERED: DOCUSATE SODIUM 100 MG (COLACE) CAP PO SCH (09:00)
[2021-06-17] MEDS ORDERED: PANTOPRAZOLE 40 MG (PROTONIX) VIAL IVP SCH (09:00)
[2021-06-17] MEDS ORDERED: ASPIRIN 325 MG (5 GR) TABLET PO SCH (09:00)
--- NOTE | 2021-06-17 09:27 | Physical Therapy Evaluation ---
PT Evaluation-General Medical Diagnosis Admission Date Jun 16, 2021 at 20:16 Medical Diagnosis: right facial droop Onset Date: Jun 16, 2021 Therapy Diagnosis Therapy Diagnosis: debility Height/Weight Height (Feet): 5 Height (Inches): 4.00 Weight (Pounds): 174 Weight (Ounces): 0 Precautions Precautions/Isolations: Fall Prevention, Standard Precautions Referral Physician: Peterson Reason for Referral: Evaluation/Treatment Medical History Pertinent Medical History: Alcoholism, COPD, Dementia, Renal Insufficiency, Smoking, TBI Additional Medical History polysubstance use Current History ambulated to ER due to facial droop Reviewed History: Yes Social History Home: Single Level Current Living Status: Other Family Prior Prior Level of Function SCALE: Activities may be completed with or without assistive devices. 0-Ejluzutdjg-wpqxfea completes the activity by him/herself with no assistance from a helper. 5-Set-up or Clean-up Assistance-helper sets up or cleans up; patient completes activity. [place] assists only prior to or following the activity. 4-Supervision or Touching Assistance-helper provides verbal cues and/or touching/steadying and/or contact guard assistance as patient completes activity. Assistance may be provided throughout the activity or intermittently. 3-Partial/Moderate Assistance-helper does LESS THAN HALF the effort. [place] lifts, holds or supports trunk or limbs, but provides less than half the effort. 2-Substantial/Maximal Assistance-helper does MORE THAN HALF the effort. [place] lifts or holds trunk or limbs and provides more than half the effort. 3-Gbnsnoyyw-radfxn does ALL the effort. Patient does none of the effort to complete the activity. Or, the assistance of 2 or more helpers is required for the patient to complete the activity. If activity was not attempted, code reason: 7-Patient Refused. 9-Not Applicable-not attempted and the patient did not perform the activity before the current illness, exacerbation or injury. 10-Not Attempted due to Environmental Limitations-(lack of equipment, weather restraints, etc.). 88-Not Attempted due to Medical Conditions or Safety Concerns. Bed Mobility: 6 Transfers (B,C,W/C): 6 Gait: 6 Stairs: 6 Indoor Mobility (Ambulation): Independent Stairs: Independent Prior Devices Use: None PT Evaluation-Current Subjective Patient agrees to PT. Patient reports she feels her left side is "heavy". Objective Patient Orientation: Normal For Age ROM/Strength ROM Lower Extremities bilateral LE WFL Strength Lower Extremities 4-/5 grossly bilateral LE all planes Integumentary/Posture Bowel Incontinence: No Bladder Incontinence: No Posture WFL Neuromuscular (Tone, Coordination, Reflexes) grossly intact with all Sensory Vision: Functional Hearing: Functional Transfers Lying to Sitting/Side of Bed(Q: 6 Sit to Stand (QC): 6 Chair/Sdr-bh-Skylx Xfer(QC): 6 Gait Does the Patient Walk?: Yes Mode of Locomotion: Walk Anticipated Mode of Locomotion: Walk Walk 10 feet (QC): 6 Walk 50 ft with 2 Turns(QC): 6 Walk 150 ft (QC): 6 Distance: 300' Gait Assistive Device: None Comments/Gait Description safe and functional with no deviation Balance Sitting Static: Normal Sitting Dynamic: Normal Standing Static: Normal Standing Dynamic: Normal Assessment/Needs 50 y.o. female, is currently at independent [facility] with all gross motor skills and does not require skilled PT intervention at this time. Rehab Potential: Fair Post Rehab Potential-Barriers: compliance PT Plan Treatment/Plan Treatment Plan: Discontinue PT, goals met Treatment Duration: Jun 17, 2021 Frequency: 1 time per week Estimated Hrs Per Day: .25 hour per day Patient and/or Family Agrees t: Yes Time/GCodes Time In: 851 Time Out: 900 Total Billed Treatment Time: 9 Total Billed Treatment 1 visit EVMod 9 min YENIFER RING PT Jun 17, 2021 09:27
[2021-06-17] MEDS ORDERED: toPIRamate 25 MG (TOPAMAX) TAB PO SCH (09:30)
--- NOTE | 2021-06-17 09:55 | Consultation-Cardiology ---
HPI-Cardiology Cardiology Consultation: Date of Consultation 06/17/21 Time Seen by a Provider: 09:30 Date of Admission 06-16-21 Attending Physician Serena Winkler DO Admitting Physician [place],Local Physician Consulting Physician Sarah Desai MD HPI: Chief Complaint: TIA vs CVA Ms. Johnson is a 50 yr old female who has been admitted to ICU 10 from the ED. She reports she has had high blood pressure at home and went to see her PCP yesterday who Rx her Lisinopril with HCTZ. She reports she was also given Flomax d/t kidneys stones. She states she took he first dose yesterday and went to bed. She reports she woke up feeling off balance and had numbness and a feeling of left sided facial droop. She denies any difficulty swallowing and ate dinner late afternoon. She reports she continued to feel "off" and had continued left sided facial numbness so she came to the ED. She reports she felt she had some blurry vision in her left eye. She reports this has resolved. She denies any weakness in her arms, hands or legs. She denies any c/o CP or palpitations. No c/o syncope or near syncope. She reports she has mild PAUL. No c/o LE swelling. She states she wants to go home today. Review of Systems-Cardiology Review of Systems Constitutional: As described under HPI; No chills, No fever Eyes: As described under HPI Ears/Nose/Throat: No epistaxis, No nasal drainage Respiratory: As described under HPI Cardiovascular: As described under HPI Gastrointestinal: No constipation, No diarrhea, No nausea, No vomiting Genitourinary: No dysuria, No hematuria Musculoskeletal: joint pain, muscle pain Skin: No rash on exposed areas, No ulcerations on exposed areas Psychiatric/Neurological: As described under HPI, anxiety, depression; No seizure Hematologic: No bleeding abnormalities All Other Systems Reviewed Negative Unless Noted: Yes STL-Rxqkpy-Tofkuj Hx Patient Social History Smoking Status: Former Smoker 2nd Hand Smoke Exposure: Yes Have you traveled recently?: No Alcohol Use?: No Substance type: Methamphetamine Pt feels they are or have been: No Tobacco type used: Cigarettes Immunizations Up To Date Tetanus Booster (TDap): More than 5yrs Date of Pneumonia Vaccine: Nov 26, 1999 Date of Influenza Vaccine: Feb 17, 2021 Past Medical History PMH As described under Assessment. Family Medical History Family Medical History: She reports her mother had CAD and has recently . She reports her father had HTN. Family History: 19 FATHER Congenital heart disease Kidney infection 19 MOTHER FH: pneumonia FH: irritable bowel syndrome Arthritis Diabetes mellitus GRANDMOTHER Cataracts Glaucoma Visual disorder Arthritis GRANDMOTHER Cataracts Glaucoma Visual disorder PATERNAL AUNTS FH: uterine cancer FH: ovarian cancer GRAND-DAUGHTER FH: defects (3 LUNGS, 36 FINGER AND TOES) Relation not specified for: FH: brain aneurysm Allergies and Home Medications Allergies Coded Allergies: Sulfa (Sulfonamide Antibiotics) (Unverified Allergy, Severe, 11/30/06) PT STATES SHE'S "DEATHLY" ALLERGIC TO SULFA amoxicillin (Unverified Allergy, Severe, 11/30/06) Penicillins (Verified Allergy, Unknown, 12/22/06) moxifloxacin (Verified Allergy, Unknown, "HIGH FEVER, DIDN'T WAKE UP", CAN TAKE LEVAQUIN W/O PROBLEM, 12/22/06) Uncoded Allergies: AVALOX (Allergy, Intermediate, 11/30/06) FEVER AND VOMITTING Patient Home Medication List Acetaminophen (Tylenol Extra Strength) 500 Mg Tablet, 1,000 MG PO Q8H PRN for PAIN-MILD (1-4), (Reported) Entered as Reported by: ZOË EDAWRDS on 06/17/21955 Last Action: Continued Albuterol Sulfate (Ventolin Hfa) 18 Gm Hfa.aer.ad, 2 PUFF IH Q4H PRN for SHORTNESS OF BREATH, (Reported) Entered as Reported by: EMMANUEL SANTOS on 02/25/16 5954 Last Action: Continued Albuterol Sulfate (Albuterol Sulfate) 2.5 Mg/0.5 Ml Vial.neb, 2.5 MG INH Q6H PRN for SHORTNESS OF BREATH, (Reported) Entered as Reported by: ZOË EDWARDS on 06/17/21955 Last Action: Continued Aspirin (Aspirin) 325 Mg Tablet, 325 MG PO DAILY Prescribed by: SERENA WINKLER on 06/17/21 102 Atorvastatin Calcium (Atorvastatin Calcium) 80 Mg Tablet, 80 MG PO DAILY Prescribed by: SERENA WINKLER on 06/17/21 1021 Benzonatate (Benzonatate) 200 Mg Capsule, 200 MG PO TID PRN for COUGH, (Reported) Entered as Reported by: ZOË EDWARDS on 06/17/21955 Last Action: Converted Cetirizine HCl (Cetirizine HCl) 10 Mg Tablet, 10 MG PO DAILY, (Reported) Entered as Reported by: ZOË EDWARDS on 06/17/21955 Last Action: Converted Fluoxetine HCl (Fluoxetine HCl) 40 Mg Capsule, 40 MG PO DAILY, (Reported) Entered as Reported by: PAULA CHONG on 11/02/151847 Last Action: Converted Fluticasone Propionate (Fluticasone Propionate) 16 Gm [place].susp, 1 SPRAY NSEACH BID PRN for CONGESTION, (Reported) Entered as Reported by: ZOË EDWARDS on 06/17/21955 Last Action: Continued Levothyroxine Sodium (Levothyroxine Sodium) 50 Mcg Tablet, 50 MCG PO DAILY, (Reported) Entered as Reported by: ZOË EDWARDS on 06/17/21955 Last Action: Continued Lisinopril/Hydrochlorothiazide (Lisinopril-Hctz 20-25 mg Tab) 1 Each Tablet, 1 EA PO DAILY, (Reported) Entered as Reported by: ZOË EDWARDS on 06/17/21955 Last Action: Converted Meloxicam (Meloxicam) 15 Mg Tablet, 15 MG PO DAILY, (Reported) Entered as Reported by: ZOË EDWARDS on 06/17/21955 Last Action: Converted Multivitamin (Gummi Bear Multivitamin) 1 Each Tab.chew, 1 EACH PO DAILY, (Reported) Entered as Reported by: ZOË EDWARDS on 06/17/21955 Last Action: Converted Polyethylene Glycol 3350 ([id number]) 238 Gm Powder, 17 GM PO DAILY PRN for CONSTIPATION-2ND LINE, (Reported) Entered as Reported by: ZOË EDWARDS on 06/17/21955 Last Action: Continued Promethazine HCl (Promethazine Tablet) 25 Mg Tablet, 25 MG PO Q8H PRN for NAUSE A/VOMITING-1ST LINE, (Reported) Entered as Reported by: ZOË EDWARDS on 06/17/21955 Last Action: Continued Tamsulosin HCl (Flomax) 0.4 Mg Cap, 0.4 MG PO DAILY, (Reported) Entered as Reported by: ZOË EDWARDS on 06/17/21955 Last Action: Continued Discontinued Medications Albuterol Sulfate (Albuterol Sulfate) 2.5 Mg/3 Ml Vial.neb, 2.5 MG IH Q4H PRN for SHORTNESS OF BREATH Discontinued Reason: No Longer Taking Prescribed by: LIZBETH COFFMAN on 02/26/16 1403 Last Action: Discontinued Alprazolam (Xanax) 0.5 Mg Tablet, 0.5 MG PO BID PRN for ANXIETY, (Reported) Discontinued Reason: No Longer Taking Entered as Reported by: EMMANUEL SANTOS on 02/25/16 165 Last Action: Discontinued Brexpiprazole (Rexulti) 0.5 Mg Tablet, 0.5 MG PO UD, (Reported) Discontinued Reason: No Longer Taking Entered as Reported by: EMMANUEL SANTOS on 02/25/16 165 Last Action: Discontinued Cephalexin (Keflex) 500 Mg Capsule, 500 MG PO TID Discontinued Reason: No Longer Taking Prescribed by: BUSHRA MANCILLA on 09/18/17 1047 Last Action: Discontinued Cephalexin (Cephalexin) 500 Mg Tablet, 500 MG PO QID Discontinued Reason: No Longer Taking Prescribed by: SASCHA RIOS on 11/04/18 1338 Last Action: Discontinued Cyclobenzaprine HCl (Cyclobenzaprine HCl) 10 Mg Tablet, 10 MG PO Q8H Discontinued Reason: No Longer Taking Prescribed by: BEAR KRISHNAMURTHY on 03/01/17218 Last Action: Discontinued Gabapentin (Gabapentin) 800 Mg Tablet, 800 MG PO TID, (Reported) Discontinued Reason: No Longer Taking Entered as Reported by: WHITNEY VICTOR on 11/26/14 1235 Last Action: Discontinued Hydrocodone Bit/Acetaminophen (Lortab 5 Mg Tablet) 1 Each Tablet, 1-2 EACH PO Q6H PRN for PAIN Discontinued Reason: No Longer Taking Prescribed by: PAVEL JOY on 03/08/17 1426 Last Action: Discontinued Hydrocodone/Ibuprofen (Hydrocodone-Ibuprofen 5-200 mg) 1 Each Tablet, 1 EACH PO Q 4 HOURS Discontinued Reason: No Longer Taking Prescribed by: BEAR KRISHNAMURTHY on 03/01/17218 Last Action: Discontinued Hydrocodone/Ibuprofen (Hydrocodone-Ibuprofen 7.5-200) 1 Each Tablet, (Reported) Discontinued Reason: No Longer Taking Entered as Reported by: PAULA CHONG on 11/27/17 1305 Last Action: Discontinued Hydroxyzine Pamoate (Hydroxyzine Pamoate) 50 Mg Capsule, 50 MG PO BID PRN for ANXIETY, (Reported) Discontinued Reason: No Longer Taking Entered as Reported by: EMMANUEL SANTOS on 02/25/161657 Last Action: Discontinued Ibuprofen (Ibuprofen) 800 Mg Tablet, 800 MG PO TID PRN for PAIN-MILD (1-4), (Reported) Entered as Reported by: EMMANUEL SANTOS on 02/25/161657 Last Action: Continued Ivermectin (Ivermectin) 3 Mg Tablet, 3 MG PO ONCE Discontinued Reason: No Longer Taking Prescribed by: PAVEL JOY on 03/01/16 1230 Last Action: Discontinued Levothyroxine Sodium (Levothyroxine Sodium) 125 Mcg Tablet, 125 MCG PO DAILY, (Reported) Discontinued Reason: No Longer Taking Entered as Reported by: EMMANUEL SANTOS on 02/25/161657 Last Action: Discontinued Lisinopril/Hydrochlorothiazide (Lisinopril-Hctz 20-12.5 mg Tab) 1 Each Tablet, 1 TAB PO DAILY, (Reported) Discontinued Reason: No Longer Taking Entered as Reported by: HALEY CALERO on 08/29/15 3463 Last Action: Discontinued Omeprazole (Omeprazole) 40 Mg Capsule.dr, 40 MG PO DAILY, (Reported) Discontinued Reason: No Longer Taking Entered as Reported by: EMMANUEL SANTOS on 02/25/161657 Last Action: Discontinued Ondansetron (Zofran Odt) 4 Mg Tab.rapdis, 4 MG SL Q4H Discontinued Reason: No Longer Taking Prescribed by: PAVEL JOY on 07/16/16 2311 Last Action: Discontinued Ondansetron (Zofran Odt) 8 Mg Tab.rapdis, 8 MG PO Q6H PRN for NAUSEA/VOMITING- 1ST LINE Discontinued Reason: No Longer Taking Prescribed by: BUSHRA MANCILLA on 09/18/17 1047 Last Action: Discontinued Pantoprazole Sodium (Protonix) 40 Mg Tablet.dr, 40 MG PO DAILY Discontinued Reason: No Longer Taking Prescribed by: BUSHRA MANCILLA on 06/07/172004 Last Action: Discontinued Risperidone (Risperidone Odt) 0.25 Mg Tab.rapdis, 0.25 MG PO HS PRN for BAD THOUGHTS , (Reported) Discontinued Reason: No Longer Taking Entered as Reported by: EMMANUEL SANTOS on 02/25/161657 Last Action: Discontinued Sumatriptan Succinate (Sumatriptan Succinate) 100 Mg Tablet, (Reported) Discontinued Reason: No Longer Taking Entered as Reported by: EMMANUEL SANTOS on 02/25/161657 Last Action: Discontinued Topiramate (Topiramate) 100 Mg Tablet, 150 MG PO BID, (Reported) Discontinued Reason: No Longer Taking Entered as Reported by: PAULA CHONG on 02/25/16 1358 Last Action: Discontinued Topiramate (Topamax) 50 Mg Tablet, 50 MG PO BID Discontinued Reason: No Longer Taking Prescribed by: SASCHA RIOS on 11/04/18 1338 Last Action: Discontinued Tramadol HCl (Tramadol HCl) 50 Mg Tablet, 50 MG PO Q6H PRN for PAIN, (Reported) Discontinued Reason: No Longer Taking Entered as Reported by: PAULA CHONG on 11/02/15 1820 Last Action: Discontinued Tramadol HCl (Tramadol HCl) 50 Mg Tablet, 50 MG PO Q8H PRN for PAIN-MODERATE (5- 7), (Reported) Entered as Reported by: ZOË EDWARDS on 06/17/21 0956 Last Action: Held Trazodone HCl (Trazodone HCl) 50 Mg Tablet, 50-100 MG PO HS PRN for SLEEP, ( Reported) Discontinued Reason: No Longer Taking Entered as Reported by: EMMANUEL SANTOS on 02/25/161657 Last Action: Discontinued [Water Pill Otc ] , (Reported) Discontinued Reason: No Longer Taking Entered as Reported by: TAMIKA FUNG on 03/01/16 1153 Last Action: Discontinued Physical Exam-Cardiology Physical Exam Vital Signs/I&O 06/17/21 06/17/21 06/17/21 06/17/21 03:00 04:41 04:43 07:00 Temp 36.9 Pulse 55 51 50 51 Resp 11 13 13 B/P (MAP) 94/67 (76) 94/67 (76) Pulse Ox 95 94 O2 Delivery Room Air Room Air Room Air 06/17/21 06/17/21 06/17/21 06/17/21 07:00 07:15 07:21 07:30 Pulse 51 85 50 Resp 12 13 12 O2 Delivery Room Air Room Air Room Air Room Air 06/17/21 06/17/21 06/17/21 06/17/21 07:45 07:51 08:00 08:00 Temp 36.3 Pulse 50 51 Resp 13 12 B/P (MAP) 95/58 (70) Pulse Ox 96 O2 Delivery Room Air Room Air Room Air 06/17/21 06/17/21 06/17/21 06/17/21 08:30 08:45 08:51 08:55 Pulse 49 49 67 Resp 23 15 21 B/P (MAP) 110/88 (98) 122/75 (90) Pulse Ox 94 97 96 O2 Delivery Room Air Room Air Room Air 06/17/21 06/17/21 06/17/21 09:00 09:15 11:45 Temp 36.4 Pulse 47 48 52 Resp 15 12 18 B/P (MAP) 132/73 (92) Pulse Ox 97 O2 Delivery Room Air Room Air 06/17/21 00:00 Intake Total 120 ml Output Total 300 ml Balance -180 ml Capillary Refill : Less Than 3 Seconds Constitutional: AAO x 3, well-developed, well-nourished HEENT: PERRL, hearing is well preserved; No oral hygience is good Neck: No carotid bruit; carotid pulses are 2 + bilaterally Respiratory: No accessory muscle use, No respiratory distress; chest expansion is symmetric, chest is bilaterally symmetric, lungs clear to auscultation Cardiovascular: regular rate-rhythm; No JVD; S1 and S2 Gastrointestinal: No tender; soft, round, audible bowel sounds Extremities: no lower extremity edema bilateral Neurologic/Psychiatric: facial droop (slight left sided facial droop), other (moves all extremities) Skin: No rash on exposed areas, No ulcerations on exposed areas Data Review Labs Laboratory Tests 06/16/21 18:10: White Blood Count 10.3, Red Blood Count 4.78, Hemoglobin 14.4, Hematocrit 43, Mean Corpuscular Volume 91, Mean Corpuscular Hemoglobin 30, Mean Corpuscular Hemoglobin Concent 33, Red Cell Distribution Width 14.1, Platelet Count 349, Mean Platelet Volume 8.9L, Immature Granulocyte % (Auto) 1, Neutrophils (%) (Auto) 61, Lymphocytes (%) (Auto) 26, Monocytes (%) (Auto) 8, Eosinophils (%) (Auto) 3, Basophils (%) (Auto) 1, Neutrophils # (Auto) 6.3, Lymphocytes # (Auto) 2.7, Monocytes # (Auto) 0.8, Eosinophils # (Auto) 0.3, Basophils # (Auto) 0.1, Immature Granulocyte # (Auto) 0.1, Prothrombin Time 12.3, INR Comment 0.9, Activated Partial Thromboplast Time 31, D-Dimer < 0.27, Sodium Level 138, Potassium Level 3.3L, Chloride Level 105, Carbon Dioxide Level 23, Anion Gap 10, Blood Urea Nitrogen 10, Creatinine 0.74, Estimat Glomerular Filtration Rate 99, BUN/Creatinine Ratio 14, Glucose Level 86, Calcium Level 9.4, Corrected Calcium 9.4, Magnesium Level 1.9, Total Bilirubin 0.3, Aspartate Amino Transf (AST/SGOT) 18, Alanine Aminotransferase (ALT/SGPT) 17, Alkaline Phosphatase 109, Troponin I < 0.028, Total Protein 7.4, Albumin 4.0, Serum Test, Qualitative NEGATIVE, Serum Alcohol < 10 06/16/21 18:11: Glucometer 87 06/16/21 19:56: Urine Color YELLOW, Urine Clarity CLEAR, Urine pH 5.5, Urine Specific [place] <=1.005, Urine Protein NEGATIVE, Urine Glucose (UA) NEGATIVE, Urine Ketones NEGATIVE, Urine Nitrite NEGATIVE, Urine Bilirubin NEGATIVE, Urine Urobilinogen 0.2, Urine Leukocyte Esterase NEGATIVE, Urine RBC (Auto) NEGATIVE, Urine RBC NONE, Urine WBC 2-5, Urine Squamous Epithelial Cells 0-2, Urine Renal Epithelial Cells NONE, Urine Crystals NONE, Urine Bacteria NEGATIVE, Urine Casts NONE, Urine Mucus NEGATIVE, Urine Culture Indicated NO, Urine Opiates Screen NEGATIVE, Urine Oxycodone Screen NEGATIVE, Urine Methadone Screen NEGATIVE, Urine Propoxyphene Screen NEGATIVE, Urine Barbiturates Screen NEGATIVE, Ur Tricyclic Antidepressants Screen NEGATIVE, Urine Phencyclidine Screen NEGATIVE, Urine Amphetamines Screen NEGATIVE, Urine Methamphetamines Screen NEGATIVE, Urine Benzodiazepines Screen NEGATIVE, Urine Cocaine Screen NEGATIVE, Urine Cannabinoids Screen NEGATIVE 06/17/21 04:21: White Blood Count 9.2, Red Blood Count 4.49, Hemoglobin 13.5, Hematocrit 41, Mean Corpuscular Volume 91, Mean Corpuscular Hemoglobin 30, Mean Corpuscular Hemoglobin Concent 33, Red Cell Distribution Width 14.5, Platelet Count 319, Mean Platelet Volume 9.2, Immature Granulocyte % (Auto) 1, Neutrophils (%) (Auto) 54, Lymphocytes (%) (Auto) 32, Monocytes (%) (Auto) 9, Eosinophils (%) (Auto) 3, Basophils (%) (Auto) 1, Neutrophils # (Auto) 5.0, Lymphocytes # (Auto) 2.9, Monocytes # (Auto) 0.9, Eosinophils # (Auto) 0.3, Basophils # (Auto) 0.1, Immature Granulocyte # (Auto) 0.1, Sodium Level 138, Potassium Level 4.2, Chloride Level 107, Carbon Dioxide Level 21, Anion Gap 10, Blood Urea Nitrogen 11, Creatinine 0.69, Estimat Glomerular Filtration Rate 106, BUN/Creatinine Ratio 16, Glucose Level 101, Calcium Level 8.9, Corrected Calcium 9.2, Magnesium Level 2.1, Total Bilirubin 0.4, Aspartate Amino Transf (AST/SGOT) 19, Alanine Aminotransferase (ALT/SGPT) 16, Alkaline Phosphatase 95, Total Protein 7.0, A lbumin 3.6, Phosphorus Level 4.2, Triglycerides Level 156H, Cholesterol Level 214H, LDL Cholesterol Direct 168H, VLDL Cholesterol 31, HDL Cholesterol 40 Radiology NAME: [facility] REC#: [id number] PT STATUS: REG ER : 1970 PHYSICIAN: BEAR KRISHNAMURTHY DO ADMIT DATE: 06/16/21/ER Signed Date of Exam:06/16/21 CHEST 1 VIEW, AP/PA ONLY Indication: Hypertension Portable chest 6:39 PM Heart size and pulmonary vascularity are normal. Lungs are clear. There are no effusions or pneumothoraces. IMPRESSION: No acute abnormalities in the chest Dictated by: Dictated on workstation # [id number] Dict: 06/16/21 1839 Trans: 06/16/21 184 TCB [id number] Interpreted by: FORREST MONTANA MD Electronically signed by: FORREST MONTANA MD 06/16/211839 NAME: [facility] REC#: [id number] PT STATUS: REG ER : 1970 PHYSICIAN: BEAR KRISHNAMURTHY DO ADMIT DATE: 06/16/21/ER Signed Date of Exam:06/16/21 CT HEAD WO-R/O STROKE PROCEDURE: CT head wo r/o stroke. TECHNIQUE: Multiple contiguous axial images were obtained through the brain without the use of intravenous contrast. Auto Exposure Controls were utilized during the CT exam to meet ALARA standards for radiation dose reduction. INDICATION: Neurologic deficit CT HEAD: CT images of the head were obtained. FINDINGS: Ventricles and sulci are within normal limits for size. There is no intracranial hemorrhage identified. There is no abnormal mass effect or shift of midline structures. IMPRESSION: Unremarkable CT of the head. Dictated by: Dictated on workstation # [id number] Dict: 06/16/211829 Trans: 06/16/211903 [facility] [id number] Interpreted by: RHEA ROJO MD Electronically signed by: RHEA ROJO MD 06/16/211903 NAME: [facility] REC#: [id number] PT STATUS: REG ER : 1970 PHYSICIAN: BEAR KRISHNAMURTHY DO ADMIT DATE: 06/16/21/ER Signed Date of Exam:06/16/21 CT ANGIO HEAD/NECK PROCEDURE: CT angiography of the head and CT angiography of the neck with and without contrast. TECHNIQUE: Contiguous noncontrast images were obtained from the skull base through the vertex. After intravenous contrast administration, helical CT angiography of the neck was performed. Source data was reformatted into 3D MIP projections. Delayed post contrast acquisition was also obtained. Auto Exposure Controls were utilized during the CT exam to meet ALARA standards for radiation dose reduction. INDICATION: Right facial droop. CTA NECK: There is a 4 vessel branching pattern arising from the aortic arch. There is mild motion artifact at the level of the origin of the great vessels. Otherwise, the carotid and vertebral arteries are widely patent. No intimal abnormality, stenosis or occlusion is identified. Note is made of heterogeneous enlargement of the thyroid gland which may be due to goiter. CTA HEAD: Anterior, middle and posterior cerebral arteries are patent. No stenosis or occlusion is identified. There is no evidence of filling defect. No abnormal contrast enhancement is identified. IMPRESSION: No CTA evidence of great vessel abnormality in the neck or head. Enlargement of the thyroid gland may be related to goiter although clinical correlation is recommended. Dictated by: Dictated on workstation # [id number] Dict: 06/16/211939 Trans: 06/16/211949 ACB [id number] Interpreted by: RHEA ROJO MD Electronically signed by: RHEA ROOJ MD 06/16/211949 NAME: [facility]ER[facility] REC#: [id number] PT STATUS: ADM Jose : 1970 PHYSICIAN: SERENA WINKLER DO ADMIT DATE: 06/16/21/ICU Draft Date of Exam:06/17/21 US CAROTID ARMANDO COMPLETE [id number] INDICATION: Right facial droop, stroke. Carotid Doppler study performed in the routine fashion with color flow Doppler waveform analysis. There is mild plaquing visualized in the carotid bifurcations. Velocities and ratios are within normal range on both sides with ICA to CCA systolic velocity ratio of 1.05 on the right side and 0.83 on the left side. Both vertebrals show antegrade flow. Incidental note is made of diffuse heterogeneity of the thyroid gland, suggest thyroid sonography if clinically warranted. Parameters based on the consensus panel Robles-Scale and Doppler ultrasound criteria published February 2003, Radiology, Volume 229. DOPPLER (peak systolic velocity M/S Right Left CCA .89 1.09 ICA Proximal .89 .91 ICA Mid .75 .70 ICA Distal .94 .45 RATIO 1.05 .83 ECA 1.05 .95 VERT .53 .50 IMPRESSION: Patent carotid territories bilaterally with no significant stenosis. Both vertebrals are patent with antegrade flow. Dictated on workstation # [id number] Dict: 06/17/21 0756 Trans: 06/17/21 0804 CVB [id number] Interpreted by: FRANCHESCA ORDONEZ MD Electronically signed by: ECG Impression ECG Initial ECG Rhythm: Normal Sinus A/P-Cardiology Assessment/Admission Diagnosis CVA vs TIA - management per stroke team HTN - has been non-compliant with medications - currently controlled - Echocardiogram of 06-17-21 showed LVEF 65-70%. PASP 35-40mmHg H/O Methamphetamine abuse - reports no usage in a year H/O ETOH abuse - reports no usage in a year Tobaccoism - reports quit 2 months ago H/O Hep A COPD Fibromyalgia DJD Reported h/o nephrolithiasis - started on Flomax per PCP Discussion and Recomendations CVA vs TIA - management per stroke services HTN - BP controlled - Echocardiogram completed, results above Replace electrolytes Monitor lab Further recs will be based on her hospital course We would like to thank Dr. Winkler for this consult Clinical Quality Measures Stroke: Symptoms onset unknown: Yes (WOKE UP AT 1600 WITH IT, WENT TO SLEEP AT 1330) DIANA BOWEN Jun 17, 2021 09:55
[2021-06-17] MEDS ORDERED: POLY238P32 PO (09:56)
[2021-06-17] MEDS ORDERED: LEVO50TA6 PO (09:56)
[2021-06-17] MEDS ORDERED: ALB0.5V INH (09:56)
[2021-06-17] MEDS ORDERED: FLUT16SP22 NSEACH (09:56)
[2021-06-17] MEDS ORDERED: ACET-2267 PO (09:56)
[2021-06-17] MEDS ORDERED: MELO15TA39 PO (09:56)
[2021-06-17] MEDS ORDERED: TMSL.4C PO (09:56)
[2021-06-17] MEDS ORDERED: TRAM50TA3 PO (09:56)
[2021-06-17] MEDS ORDERED: MULT-192 PO (09:56)
[2021-06-17] MEDS ORDERED: LISI1TAB48 PO (09:56)
[2021-06-17] MEDS ORDERED: BENZ200C51 PO (09:56)
[2021-06-17] MEDS ORDERED: PROM25TA14 PO (09:56)
[2021-06-17] MEDS ORDERED: CETI10TA17 PO (09:56)
[2021-06-17] MEDS ORDERED: ATOR80TA76 PO (10:21)
[2021-06-17] MEDS ORDERED: ASPI-808 PO (10:21)
--- NOTE | 2021-06-17 10:27 | Short Stay Summary-Hospitalist ---
MARIA LUZTERE 06/17/21 1027: History of Present Illness HPI/Chief Complaint CC: Right sided Facial Droop HPI: This is a 50 yo F who presented to the ER on 06/16/2021 for facial droop on her right side. That day, she took a nap at 13:30 then woke up about 16:00 with right sided facial droop. [place] off balance but not dizzy and no problems walking. Patient also had decreased sensation on the left side of her face and blurry vision in her left eye. Family reported the her speech was slurred. PCP is Wayne Patricio, JIMENEZ at [facility]. Patient is not taking hypertension medication. Has migraines, History of TBI, history of seizures. Reports her most recent seizure was about 3-4 months ago in which she experienced tremors and stuttering. History of non-compliance with her health care. Currently lives with Aunt. Patient has a social history of EtOH use, smoking, and IV Methamphetamine use. Reports she quit drinking about 15 years ago, quit smoking 2 months ago, and has not used methamphetamine for a long time. Upon visiting the patient, she says she is feeling better. Reports that right facial droop not as bad as yesterday. Still having blurry vision of the L eye and decreased sensation and paraesthesia to the left face. Pt reports that her speech today is improved, not slurred. CXR, CT head, and CTA head on 06/16 do not show any remarkable findings. Source: patient Exam Limitations: no limitations Date Seen 06/17/21 Time Seen by a Provider: 08:34 Attending Physician Priya Hamilton DO PCP No,Local Physician Referring Physician Date of Admission Jun 16, 2021 at 20:16 Home Medications & Allergies Home Medications Reviewed patient Home Medication Reconciliation performed by pharmacy medication reconciliations wheel alignment technician and/or nursing. Patients Allergies have been reviewed. Allergies Allergies Coded Allergies Sulfa (Sulfonamide Antibiotics) (Unverified Allergy, Severe, 11/30/06) PT STATES SHE'S "DEATHLY" ALLERGIC TO SULFA amoxicillin (Unverified Allergy, Severe, 11/30/06) Penicillins (Verified Allergy, Unknown, 12/22/06) moxifloxacin (Verified Allergy, Unknown, "HIGH FEVER, DIDN'T WAKE UP", CAN TAKE LEVAQUIN W/O PROBLEM, 12/22/06) Uncoded Allergies AVALOX ( Allergy, Intermediate, 11/30/06) FEVER AND VOMITTING Past Medical/Social/Family Hx Patient Social History Tobacco Use?: No Tobacco type used: Cigarettes Smoking Status: Former Smoker Smokeless Tobacco Frequency: Never a User Use of E-Cig and/or Vaping dev: Yes E-Cig or Vaping type used: Nicotine E-Cig and/or Vaping Freq: Current Someday User, Light User Substance use?: No 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 Alcohol Use?: No Pt stated abuse/neglect: No Immunizations Up To Date Influenza Vaccine Up-to-Date: Yes; Up-to-Date First/Initial COVID19 Vaccinat: January 2021 Second COVID19 Vaccination Zi: February 2021 Hepatitis A: No Hepatitis B: No TB Skin Test: None Date of Pneumonia Vaccine: Nov 26, 1999 Current Status Advance Directives: No Communicates: Verbally Primary Language: Greek Preferred Spoken Language: Greek Implanted or Applied Medical D: None Past Medical History PMH: COPD hx MRSA GERD Hypothyroidism Migraine DUNCAN Depression Family Medical History Family Hx: SOCIAL HISTORY: -SMOKES 2 PPD -ETOH--HISTORY OF ABUSE--HEAVY/DAILY USE "TO THE POINT OF PASSING OUT" EVERY DAY--CLAIMS NO RECENT USE PER PT ON 06/16/21 -DRUGS--HX OF IV METH USE, THC USE, RX DRUGS--CLAIMS NO RECENT USE, PER PT ON 06/16/21 PT HAS HISTORY OF HOMELESSENESS PT CURRENTLY LIVING WITH AN AUNT OF 06/16/21 PT WITH LONG HISTORY OF NON-COMPLIANCE IN ALL ASPECTS OF CARE Review of Systems Constitutional: No chills, No diaphoresis, No dizziness, No malaise EENTM: blurred vision (Left eye blurred vision); No hearing loss Respiratory: No cough, No dyspnea on exertion, No short of breath Cardiovascular: No edema, No palpitations Gastrointestinal: No abdominal pain, No diarrhea, No nausea, No vomiting Genitourinary: No decreased output, No dysuria Musculoskeletal: No back pain, No muscle pain Psychiatric/Neurological: Paresthesia (Decreased sensation and tingling on left side of phase), Weakness (Right sided facial droop) Physical Exam Physical Exam Vital Signs Vital Signs - First Documented 06/16/21 06/16/21 18:10 20:52 Temp 36.8 Pulse 80 Resp 18 B/P (MAP) 135/88 (104) Pulse Ox 96 O2 Delivery Room Air Capillary Refill : Less Than 3 Seconds Height, Weight, BMI Height: 5'4.00" Weight: 174lbs. 0oz. [id number]; 41.11 BMI Method:Stated General Appearance: No Apparent Distress, WD/WN HEENT: PERRL/EOMI Cardiovascular: Regular Rate, Rhythm, No Edema Gastrointestinal: Normal Bowel Sounds Neurologic/Psychiatric: Alert, Oriented x3, Facial Droop (Right Side), Sensory Deficit (Left side of face, decreased sensation with fine touch on ) Results Results/Procedures Labs Laboratory Tests 06/16/21 18:10 06/17/21 04:21 Patient resulted labs reviewed. Short Stay Diagnosis Discharge Diagnosis-Short Stay Admission Diagnosis Right sided facial droop TIA symptoms Conclusion Plan CXR (06/16)- No acute abnormalities CT head (06/16)- Unremarkable CT CTA head (06/16)- Unremarkable MRI Clinical Quality Measures Stroke: Symptoms onset unknown: Yes (WOKE UP AT 1600 WITH IT, WENT TO SLEEP AT 1330) PRIYA HAMILTON DO 06/19/21 0556: History of Present Illness HPI/Chief Complaint Chief Complaint: Right facial droop HPI: This is a 50yoWF history of illicit drug use nicotine smoking. Who presented with right facial droop and findings consistent with a TIA versus stroke. Stroke Neurologist was consulted. Patient was worked up in the ER with no evidence of acute stroke. MRI was recommended. Carotid US was negative and patient was placed on Aspirin and Statin. Cardiology consulted and she was deemed stable for discharge. Source: patient Exam Limitations: no limitations Past Medical/Social/Family Hx Patient Social History Marrital Status: single Employed/Student: unemployed Past Medical History Illicit drug use Review of Systems Constitutional: see HPI, weakness Physical Exam Physical Exam General Appearance: No Apparent Distress, WD/WN, Chronically ill Eyes: Bilateral Eye Normal Inspection, Bilateral Eye PERRL HEENT: PERRL/EOMI, Normal ENT Inspection, Pharynx Normal Neck: Full Range of Motion, Normal Inspection, Non Tender, Supple, Carotid Bruit Respiratory: Chest Non Tender, Lungs Clear, Normal Breath Sounds, No Accessory Muscle Use, No Respiratory Distress Cardiovascular: Regular Rate, Rhythm, No Edema, No Gallop, No JVD, No Murmur, Normal Peripheral Pulses Gastrointestinal: Normal Bowel Sounds, No Organomegaly, No Pulsatile Mass, Non Tender, Soft Back: Normal Inspection, No CVA Tenderness, No Vertebral Tenderness Extremity: Normal Capillary Refill, Normal Inspection, Normal Range of Motion, Non Tender, No Calf Tenderness, No Pedal Edema Neurologic/Psychiatric: Alert, Oriented x3, No Motor/Sensory Deficits, Normal Mood/Affect, Facial Droop (Right Side), Sensory Deficit (Left side of face, decreased sensation with fine touch on ) Skin: Normal Color, Warm/Dry Lymphatic: No Adenopathy Short Stay Diagnosis Discharge Diagnosis-Short Stay Admission Diagnosis Right facial droop TIA symptoms but MRI negative Discharge home Final Discharge Diagnosis Right facial droop but negative MRI Conclusion Plan Discharge home Supervisory-Addendum Brief Verification & Attestation Participated in pt care: history, MDM, physical Personally performed: exam, history, MDM, supervision of care Care discussed with: Medical Student Procedures: n/a Results interpretation: Verified all documentation Verification and Attestation of Medical Student E/M Service A medical student performed and documented this service in my presence. I reviewed and verified all information documented by the medical student and made modifications to such information, when appropriate. I personally performed the physical exam and medical decision making. Priya Hamilton Jun 19, 2021,05:56 TERE BRAGA Jun 17, 2021 10:27 PRIYA HAMILTON DO Jun 19, 2021 05:56
[2021-06-17] MEDS ORDERED: IBUPROFEN 800 MG (MOTRIN) TAB PO PRN (10:30)
[2021-06-17] MEDS ORDERED: PROMETHAZINE 25 MG (PHENERGAN) TAB PO PRN (10:30)
[2021-06-17] MEDS ORDERED: FLUTICASONE NASAL SPRAY (FLONASE) 16 GM BTL NS PRN (10:30)
[2021-06-17] MEDS ORDERED: NON-FORMULARY MEDICATION 1 EA EA (Benzonatate 200 MG) PO PRN (10:30)
[2021-06-17] MEDS ORDERED: RT-ALBUTEROL SULF 2.5 MG/3 ML PRE-MIX VIAL IH PRN (10:30)
[2021-06-17] MEDS ORDERED: polyethylene glycoL Bowel Prep(MIRALAX) 238 GM PO PRN (10:30)
[2021-06-17] MEDS ORDERED: ACETAMINOPHEN 500 MG TAB (TYLENOL) PO PRN (10:30)
[2021-06-17] MEDS ORDERED: GADOTERATE 0.5 MMOL/ML (CLARISCAN) 20 ML VIAL IV ONE (11:30)
--- NOTE | 2021-06-17 11:33 | Occ Therapy Progress Note ---
Therapy Progress Note OT orders received and chart was reviewed. Pt currently in MRI. OT to attempt again later in the day if schedule allows. Jazzy Vanegas OT Jun 17, 2021 11:32
--- NOTE | 2021-06-17 11:53 | Diagnostic Imaging Report ---
Clinical Indication: Possible stroke. Exam: MRI of the brain performed without and with 20 cc of Clariscan IV contrast. Sequences include axial DWI, ADC map, axial gradient echo, axial FLAIR, axial T1, axial T2, axial T1 post IV contrast whole brain, coronal T1 fat-sat post IV contrast whole brain, and sagittal T1 fat-sat post IV contrast whole brain. Comparison: CT angiogram of head/neck dated 06/16/2021. Head CT dated 05/18/2015. Findings: There is no evidence of acute cerebral infarct, intracranial hemorrhage, or gross mass effect. The brain parenchymal volume appears appropriate for patient's age. There are a few focal areas of high T2 signal involving the white matter of both cerebral hemispheres, likely representing minimal chronic small vessel ischemic disease changes. There is normal alvarado-white matter distinction. There is no significant midline shift or herniation. There is no evidence of hydrocephalus. The basal cisterns are unremarkable. There is slight prominence of the intraorbital optic nerve dural sheaths with slight tortuosity noted which is nonspecific. There is no definite flattening about the disc seen on this exam. This appearance has slightly progressed compared to the prior head CT dated 05/18/2015. The skull, extracranial soft tissue, and orbits are unremarkable. The paranasal sinuses are unremarkable. Temporal bones show no significant abnormality. IMPRESSION: 1: There is no evidence of acute intracranial process. There is no intracranial hemorrhage or acute cerebral infarct. 2: Mild age-related brain parenchymal changes 3: There is mild prominence of the intraorbital optic nerve dural sheaths and slightly tortuous which has slightly progressed compared to the prior head CT dated 05/18/2015. There is no intracranial space-occupying mass. There is no gross evidence of flattening of the optic disks on this exam. Ophthalmoscopy may help better evaluate. Dictated by: Dictated on workstation # [id number]
--- NOTE | 2021-06-17 12:29 | Consultation-Cardiology ---
HPI-Cardiology Cardiology Consultation: Date of Consultation 06/17/21 Time Seen by a Provider: 11:20 Date of Admission Attending Physician Priya Hamilton DO Admitting Physician [place],Local Physician Consulting Physician CHANTELL MOYA MD, MA, FACP, FACC, FSCAI, CCDS HPI: Chief Complaint: TIA vs CVA Ms. Bridges is a 50 yr old female who has been admitted to ICU 10 from the ED. She reports she has had high blood pressure at home and went to see her PCP yesterday who Rx her Lisinopril with HCTZ. She reports she was also given Flomax d/t kidneys stones. She states she took he first dose yesterday and went to bed. She reports she woke up feeling off balance and had numbness and a feeling of left-sided facial droop (ER records state R-sided, but she says L- sided). She denies any difficulty swallowing and ate dinner late afternoon. She reports she continued to feel "off" and had continued left-sided facial numbness so she came to the ED. She reports she felt she had some blurry vision in her left eye. She reports this has resolved. She denies any weakness in her arms, hands or legs. She denies any c/o CP or palpitations. No c/o syncope or near syncope. She reports she has mild PAUL. No c/o LE swelling. She states she wants to go home today. Review of Systems-Cardiology Review of Systems Constitutional: As described under HPI; No chills, No fever Eyes: As described under HPI Ears/Nose/Throat: No epistaxis, No nasal drainage Respiratory: As described under HPI Cardiovascular: As described under HPI Gastrointestinal: No constipation, No diarrhea, No nausea, No vomiting Genitourinary: No dysuria, No hematuria Musculoskeletal: joint pain, muscle pain Skin: No rash on exposed areas, No ulcerations on exposed areas Psychiatric/Neurological: As described under HPI, anxiety, depression; No seizure Hematologic: No bleeding abnormalities All Other Systems Reviewed Negative Unless Noted: Yes GWK-Pssero-Bzamvh Hx Patient Social History Smoking Status: Former Smoker 2nd Hand Smoke Exposure: Yes Have you traveled recently?: No Alcohol Use?: No Substance type: Methamphetamine Pt feels they are or have been: No Tobacco type used: Cigarettes Immunizations Up To Date Tetanus Booster (TDap): More than 5yrs Date of Pneumonia Vaccine: Nov 26, 1999 Date of Influenza Vaccine: Feb 17, 2021 Past Medical History PMH As described under Assessment. Family Medical History Family Medical History: She reports her mother had CAD and has recently . She reports her father had HTN. Family History: Arthritis 19 MOTHER GRANDMOTHER Cataracts GRANDMOTHER GRANDMOTHER Congenital heart disease 19 FATHER Diabetes mellitus 19 MOTHER FH: defects GRAND-DAUGHTER (3 LUNGS, 36 FINGER AND TOES) FH: brain aneurysm FH: irritable bowel syndrome 19 MOTHER FH: ovarian cancer PATERNAL AUNTS FH: pneumonia 19 MOTHER FH: uterine cancer PATERNAL AUNTS Glaucoma GRANDMOTHER GRANDMOTHER Kidney infection 19 FATHER Visual disorder GRANDMOTHER GRANDMOTHER Allergies and Home Medications Allergies Coded Allergies: Sulfa (Sulfonamide Antibiotics) (Unverified Allergy, Severe, 11/30/06) PT STATES SHE'S "DEATHLY" ALLERGIC TO SULFA amoxicillin (Unverified Allergy, Severe, 11/30/06) Penicillins (Verified Allergy, Unknown, 12/22/06) moxifloxacin (Verified Allergy, Unknown, "HIGH FEVER, DIDN'T WAKE UP", CAN TAKE LEVAQUIN W/O PROBLEM, 12/22/06) Uncoded Allergies: AVALOX (Allergy, Intermediate, 11/30/06) FEVER AND VOMITTING Patient Home Medication List Home Medication List Reviewed: Yes Acetaminophen (Tylenol Extra Strength) 500 Mg Tablet, 1,000 MG PO Q8H PRN for PAIN-MILD (1-4), (Reported) Entered as Reported by: ZOË EDWARDS on 06/17/21955 Last Action: Continued Albuterol Sulfate (Ventolin Hfa) 18 Gm Hfa.aer.ad, 2 PUFF IH Q4H PRN for SHORTNESS OF BREATH, (Reported) Entered as Reported by: EMMANUEL SANTOS on 02/25/16 1658 Last Action: Continued Albuterol Sulfate (Albuterol Sulfate) 2.5 Mg/0.5 Ml Vial.neb, 2.5 MG INH Q6H PRN for SHORTNESS OF BREATH, (Reported) Entered as Reported by: ZOË EDWARDS on 06/17/21955 Last Action: Continued Aspirin (Aspirin) 325 Mg Tablet, 325 MG PO DAILY Prescribed by: PRIYA HAMILTON on 06/17/21 1021 Atorvastatin Calcium (Atorvastatin Calcium) 80 Mg Tablet, 80 MG PO DAILY Prescribed by: PRIYA HAMILTON on 06/17/21 1021 Benzonatate (Benzonatate) 200 Mg Capsule, 200 MG PO TID PRN for COUGH, (Reported) Entered as Reported by: ZOË EDWARDS on 06/17/21955 Last Action: Converted Cetirizine HCl (Cetirizine HCl) 10 Mg Tablet, 10 MG PO DAILY, (Reported) Entered as Reported by: ZOË EDWARDS on 06/17/21955 Last Action: Converted Fluoxetine HCl (Fluoxetine HCl) 40 Mg Capsule, 40 MG PO DAILY, (Reported) Entered as Reported by: PAULA CHONG on 11/02/15 184 Last Action: Converted Fluticasone Propionate (Fluticasone Propionate) 16 Gm Strang.susp, 1 SPRAY NSEACH BID PRN for CONGESTION, (Reported) Entered as Reported by: ZOË EDWARDS on 06/17/21955 Last Action: Continued Ibuprofen (Ibuprofen) 800 Mg Tablet, 800 MG PO TID PRN for PAIN-MILD (1-4), (Reported) Entered as Reported by: EMMANUEL SANTOS on 02/25/16 165 Last Action: Continued Levothyroxine Sodium (Levothyroxine Sodium) 50 Mcg Tablet, 50 MCG PO DAILY, (Reported) Entered as Reported by: ZOË EDWARDS on 06/17/21955 Last Action: Continued Lisinopril/Hydrochlorothiazide (Lisinopril-Hctz 20-25 mg Tab) 1 Each Tablet, 1 EA PO DAILY, (Reported) Entered as Reported by: ZOË EDWARDS on 06/17/21955 Last Action: Converted Meloxicam (Meloxicam) 15 Mg Tablet, 15 MG PO DAILY, (Reported) Entered as Reported by: ZOË EDWARDS on 06/17/21955 Last Action: Converted Multivitamin (Gummi Bear Multivitamin) 1 Each Tab.chew, 1 EACH PO DAILY, (Reported) Entered as Reported by: ZOË EDWARDS on 06/17/21955 Last Action: Converted Polyethylene Glycol 3350 ([id number]) 238 Gm Powder, 17 GM PO DAILY PRN for CONSTIPATION-2ND LINE, (Reported) Entered as Reported by: ZOË EDWARDS on 06/17/21955 Last Action: Continued Promethazine HCl (Promethazine Tablet) 25 Mg Tablet, 25 MG PO Q8H PRN for NAUSEA/VOMITING-1ST LINE, (Reported) Entered as Reported by: ZOË EDWARDS on 06/17/21955 Last Action: Continued Tamsulosin HCl (Flomax) 0.4 Mg Cap, 0.4 MG PO DAILY, (Reported) Entered as Reported by: ZOË EDWARDS on 06/17/21955 Last Action: Continued Tramadol HCl (Tramadol HCl) 50 Mg Tablet, 50 MG PO Q8H PRN for PAIN-MODERATE (5- 7), (Reported) Entered as Reported by: ZOË EDWARDS on 06/17/21955 Last Action: Held Discontinued Medications Albuterol Sulfate (Albuterol Sulfate) 2.5 Mg/3 Ml Vial.neb, 2.5 MG IH Q4H PRN for SHORTNESS OF BREATH Discontinued Reason: No Longer Taking Prescribed by: LIZBETH COFFMAN on 02/26/16 1403 Last Action: Discontinued Alprazolam (Xanax) 0.5 Mg Tablet, 0.5 MG PO BID PRN for ANXIETY, (Reported) Discontinued Reason: No Longer Taking Entered as Reported by: EMMANUEL SANTOS on 02/25/16 165 Last Action: Discontinued Brexpiprazole (Rexulti) 0.5 Mg Tablet, 0.5 MG PO UD, (Reported) Discontinued Reason: No Longer Taking Entered as Reported by: EMMANUEL SANTOS on 02/25/16 165 Last Action: Discontinued Cephalexin (Keflex) 500 Mg Capsule, 500 MG PO TID Discontinued Reason: No Longer Taking Prescribed by: BUSHRA MANCILLA on 09/18/17 1047 Last Action: Discontinued Cephalexin (Cephalexin) 500 Mg Tablet, 500 MG PO QID Discontinued Reason: No Longer Taking Prescribed by: SASCHA RIOS on 11/04/18 1338 Last Action: Discontinued Cyclobenzaprine HCl (Cyclobenzaprine HCl) 10 Mg Tablet, 10 MG PO Q8H Discontinued Reason: No Longer Taking Prescribed by: BEAR KRISHNAMURTHY on 03/01/17 0219 Last Action: Discontinued Gabapentin (Gabapentin) 800 Mg Tablet, 800 MG PO TID, (Reported) Discontinued Reason: No Longer Taking Entered as Reported by: WHITNEY VICTOR on 11/26/14 1235 Last Action: Discontinued Hydrocodone Bit/Acetaminophen (Lortab 5 Mg Tablet) 1 Each Tablet, 1-2 EACH PO Q6H PRN for PAIN Discontinued Reason: No Longer Taking Prescribed by: PAVEL JOY on 03/08/17 1426 Last Action: Discontinued Hydrocodone/Ibuprofen (Hydrocodone-Ibuprofen 5-200 mg) 1 Each Tablet, 1 EACH PO Q 4 HOURS Discontinued Reason: No Longer Taking Prescribed by: BEAR KRISHNAMURTHY on 03/01/17 0219 Last Action: Discontinued Hydrocodone/Ibuprofen (Hydrocodone-Ibuprofen 7.5-200) 1 Each Tablet, (Reported) Discontinued Reason: No Longer Taking Entered as Reported by: PAULA CHONG on 03/08/17 1305 Last Action: Discontinued Hydroxyzine Pamoate (Hydroxyzine Pamoate) 50 Mg Capsule, 50 MG PO BID PRN for ANXIETY, (Reported) Discontinued Reason: No Longer Taking Entered as Reported by: EMMANUEL SANTOS on 02/25/161657 Last Action: Discontinued Ivermectin (Ivermectin) 3 Mg Tablet, 3 MG PO ONCE Discontinued Reason: No Longer Taking Prescribed by: PAVEL JOY on 03/01/16 1230 Last Action: Discontinued Levothyroxine Sodium (Levothyroxine Sodium) 125 Mcg Tablet, 125 MCG PO DAILY, (Reported) Discontinued Reason: No Longer Taking Entered as Reported by: EMMANUEL SANTOS on 02/25/161657 Last Action: Discontinued Lisinopril/Hydrochlorothiazide (Lisinopril-Hctz 20-12.5 mg Tab) 1 Each Tablet, 1 TAB PO DAILY, (Reported) Discontinued Reason: No Longer Taking Entered as Reported by: HALEY CALERO on 08/29/152148 Last Action: Discontinued Omeprazole (Omeprazole) 40 Mg Capsule.dr, 40 MG PO DAILY, (Reported) Discontinued Reason: No Longer Taking Entered as Reported by: EMMANUEL SANTOS on 02/25/161657 Last Action: Discontinued Ondansetron (Zofran Odt) 4 Mg Tab.rapdis, 4 MG SL Q4H Discontinued Reason: No Longer Taking Prescribed by: PAVEL JOY on 07/16/16 2311 Last Action: Discontinued Ondansetron (Zofran Odt) 8 Mg Tab.rapdis, 8 MG PO Q6H PRN for NAUSEA/VOMITING- 1ST LINE Discontinued Reason: No Longer Taking Prescribed by: BUSHRA MANCILLA on 09/18/17 1047 Last Action: Discontinued Pantoprazole Sodium (Protonix) 40 Mg Tablet.dr, 40 MG PO DAILY Discontinued Reason: No Longer Taking Prescribed by: BUSHRA MANCILLA on 06/07/172004 Last Action: Discontinued Risperidone (Risperidone Odt) 0.25 Mg Tab.rapdis, 0.25 MG PO HS PRN for BAD THOUGHTS , (Reported) Discontinued Reason: No Longer Taking Entered as Reported by: EMMANUEL SANTOS on 02/25/161657 Last Action: Discontinued Sumatriptan Succinate (Sumatriptan Succinate) 100 Mg Tablet, (Reported) Discontinued Reason: No Longer Taking Entered as Reported by: EMMANUEL SANTOS on 02/25/161657 Last Action: Discontinued Topiramate (Topiramate) 100 Mg Tablet, 150 MG PO BID, (Reported) Discontinued Reason: No Longer Taking Entered as Reported by: PAULA CHONG on 02/25/16 1358 Last Action: Discontinued Topiramate (Topamax) 50 Mg Tablet, 50 MG PO BID Discontinued Reason: No Longer Taking Prescribed by: SASCHA RIOS on 11/04/18 1338 Last Action: Discontinued Tramadol HCl (Tramadol HCl) 50 Mg Tablet, 50 MG PO Q6H PRN for PAIN, (Reported) Discontinued Reason: No Longer Taking Entered as Reported by: PAULA CHONG on 11/02/15 1820 Last Action: Discontinued Trazodone HCl (Trazodone HCl) 50 Mg Tablet, 50-100 MG PO HS PRN for SLEEP, (Reported) Discontinued Reason: No Longer Taking Entered as Reported by: EMMANUEL SANTOS on 02/25/161657 Last Action: Discontinued [Water Pill Otc ] , (Reported) Discontinued Reason: No Longer Taking Entered as Reported by: TAMIKA FUNG on 03/01/16 1153 Last Action: Discontinued Physical Exam-Cardiology Physical Exam Vital Signs/I&O 06/17/21 06/17/21 06/17/21 06/17/21 01:00 01:00 03:00 04:41 Pulse 62 62 55 51 Resp 15 11 13 B/P (MAP) 100/67 (78) 94/67 (76) Pulse Ox 94 95 O2 Delivery Room Air Room Air Room Air 06/17/21 06/17/21 06/17/21 3/8/22 04:43 07:00 07:00 07:15 Temp 36.9 Pulse 50 51 51 85 Resp 13 12 13 B/P (MAP) 94/67 (76) Pulse Ox 94 O2 Delivery Room Air Room Air Room Air 06/17/21 06/17/21 06/17/21 06/17/21 07:21 07:30 07:45 07:51 Pulse 50 50 51 Resp 12 13 12 B/P (MAP) 95/58 (70) O2 Delivery Room Air Room Air Room Air Room Air 06/17/21 06/17/21 06/17/21 06/17/21 08:00 08:00 08:30 08:45 Temp 36.3 Pulse 49 49 Resp 23 15 Pulse Ox 96 94 97 O2 Delivery Room Air Room Air Room Air 06/17/21 06/17/21 06/17/21 06/17/21 08:51 08:55 09:00 09:15 Pulse 67 47 48 Resp 21 15 12 B/P (MAP) 110/88 (98) 122/75 (90) Pulse Ox 96 O2 Delivery Room Air Room Air 06/17/21 11:45 Temp 36.4 Pulse 52 Resp 18 B/P (MAP) 132/73 (92) Pulse Ox 97 O2 Delivery Room Air 06/17/21 00:00 Intake Total 120 ml Output Total 300 ml Balance -180 ml Capillary Refill : Less Than 3 Seconds Constitutional: AAO x 3, well-developed, well-nourished HEENT: PERRL, hearing is well preserved; No oral hygience is good Neck: No carotid bruit; carotid pulses are 2 + bilaterally Respiratory: No accessory muscle use, No respiratory distress; chest expansion is symmetric, chest is bilaterally symmetric, lungs clear to auscultation Cardiovascular: regular rate-rhythm; No JVD; S1 and S2 Gastrointestinal: No tender; soft, round, audible bowel sounds Extremities: no lower extremity edema bilateral Neurologic/Psychiatric: facial droop (slight left sided facial droop), other (moves all extremities) Skin: No rash on exposed areas, No ulcerations on exposed areas Data Review Labs Laboratory Tests 06/16/21 18:10: White Blood Count 10.3, Red Blood Count 4.78, Hemoglobin 14.4, Hematocrit 43, Mean Corpuscular Volume 91, Mean Corpuscular Hemoglobin 30, Mean Corpuscular Hemoglobin Concent 33, Red Cell Distribution Width 14.1, Platelet Count 349, Mean Platelet Volume 8.9L, Immature Granulocyte % (Auto) 1, Neutrophils (%) (Auto) 61, Lymphocytes (%) (Auto) 26, Monocytes (%) (Auto) 8, Eosinophils (%) (Auto) 3, Basophils (%) (Auto) 1, Neutrophils # (Auto) 6.3, Lymphocytes # (Auto) 2.7, Monocytes # (Auto) 0.8, Eosinophils # (Auto) 0.3, Basophils # (Auto) 0.1, Immature Granulocyte # (Auto) 0.1, Prothrombin Time 12.3, INR Comment 0.9, Activated Partial Thromboplast Time 31, D-Dimer < 0.27, Sodium Level 138, Potas sium Level 3.3L, Chloride Level 105, Carbon Dioxide Level 23, Anion Gap 10, Blood Urea Nitrogen 10, Creatinine 0.74, Estimat Glomerular Filtration Rate 99, BUN/Creatinine Ratio 14, Glucose Level 86, Calcium Level 9.4, Corrected Calcium 9.4, Magnesium Level 1.9, Total Bilirubin 0.3, Aspartate Amino Transf (AST/SGOT) 18, Alanine Aminotransferase (ALT/SGPT) 17, Alkaline Phosphatase 109, Troponin I < 0.028, Total Protein 7.4, Albumin 4.0, Serum Test, Qualitative NEGATIVE, Serum Alcohol < 10 06/16/21 18:11: Glucometer 87 06/16/21 19:56: Urine Color YELLOW, Urine Clarity CLEAR, Urine pH 5.5, Urine Specific [place] <=1.005, Urine Protein NEGATIVE, Urine Glucose (UA) NEGATIVE, Urine Ketones NEGATIVE, Urine Nitrite NEGATIVE, Urine Bilirubin NEGATIVE, Urine Urobilinogen 0.2, Urine Leukocyte Esterase NEGATIVE, Urine RBC (Auto) NEGATIVE, Urine RBC NONE, Urine WBC 2-5, Urine Squamous Epithelial Cells 0-2, Urine Renal Epithelial Cells NONE, Urine Crystals NONE, Urine Bacteria NEGATIVE, Urine Casts NONE, Urine Mucus NEGATIVE, Urine Culture Indicated NO, Urine Opiates Screen NEGATIVE, Urine Oxycodone Screen NEGATIVE, Urine Methadone Screen NEGATIVE, Urine Propoxyphene Screen NEGATIVE, Urine Barbiturates Screen NEGATIVE, Ur Tricyclic Antidepressants Screen NEGATIVE, Urine Phencyclidine Screen NEGATIVE, Urine Amphetamines Screen NEGATIVE, Urine Methamphetamines Screen NEGATIVE, Urine Benzodiazepines Screen NEGATIVE, Urine Cocaine Screen NEGATIVE, Urine Cannabinoids Screen NEGATIVE 06/17/21 04:21: White Blood Count 9.2, Red Blood Count 4.49, Hemoglobin 13.5, Hematocrit 41, Mean Corpuscular Volume 91, Mean Corpuscular Hemoglobin 30, Mean Corpuscular Hemoglobin Concent 33, Red Cell Distribution Width 14.5, Platelet Count 319, Mean Platelet Volume 9.2, Immature Granulocyte % (Auto) 1, Neutrophils (%) (Auto) 54, Lymphocytes (%) (Auto) 32, Monocytes (%) (Auto) 9, Eosinophils (%) (Auto) 3, Basophils (%) (Auto) 1, Neutrophils # (Auto) 5.0, Lymphocytes # (Auto) 2.9, Monocytes # (Auto) 0.9, Eosinophils # (Auto) 0.3, Basophils # (Auto) 0.1, Immature Granulocyte # (Auto) 0.1, Sodium Level 138, Potassium Level 4.2, Chloride Level 107, Carbon Dioxide Level 21, Anion Gap 10, Blood Urea Nitrogen 11, Creatinine 0.69, Estimat Glomerular Filtration Rate 106, BUN/Creatinine Ratio 16, Glucose Level 101, Calcium Level 8.9, Corrected Calcium 9.2, Magnesium Level 2.1, Total Bilirubin 0.4, Aspartate Amino Transf (AST/SGOT) 19, Alanine Aminotransferase (ALT/SGPT) 16, Alkaline Phosphatase 95, Total Protein 7.0, Albumin 3.6, Phosphorus Level 4.2, Triglycerides Level 156H, Cholesterol Level 214H, LDL Cholesterol Direct 168H, VLDL Cholesterol 31, HDL Cholesterol 40 A/P-Cardiology Assessment/Admission Diagnosis CVA vs TIA - management per Dr Hamilton HTN - has been non-compliant with medications - currently controlled - Echocardiogram of 06-17-21 showed LVEF 65-70%. PASP 35-40mmHg H/O Methamphetamine abuse - reports no usage in a year H/O ETOH abuse - reports no usage in a year Tobaccoism - reports quit 2 months ago H/O Hep A COPD Fibromyalgia DJD Reported h/o nephrolithiasis - started on Flomax per PCP Discussion and Recomendations CVA vs TIA is being managed by Dr Hamilton Continue regimen for hypertension Replace electrolytes Monitor lab Further recs will be based on her hospital course We would like to thank Dr. Hamilton for this consult Clinical Quality Measures Stroke: Symptoms onset unknown: Yes (WOKE UP AT 1600 WITH IT, WENT TO SLEEP AT 1330) CHANTELL MOYA MD FACP FAC CCDS Jun 17, 2021 12:29
--- NOTE | 2021-06-17 13:26 | Occ Therapy Progress Note ---
Therapy Progress Note OT orders received and chart was reviewed. Pt sitting EOB eating lunch at therapy arrival. She politely declines OT eval as she reports that after she eats she will be discharging home. Pt denies any concerns regarding self cares and reports that her aunt will be able to assist if needed. Pt continues to report blurriness in L eye as well as a headache. MRI reports no acute changes. Per chart, pt ambulated 300 feet independently with physical therapist. Jazzy Vanegas OT Jun 17, 2021 13:26
[2021-06-18] MEDS ORDERED: LEVOTHYROXINE 50 MCG (LEVOTHROID) TAB PO SCH (06:30)
[2021-06-18] MEDS ORDERED: NON-FORMULARY MEDICATION 1 EA EA (Cetirizine HCl 10 MG) PO SCH (09:00)
[2021-06-18] MEDS ORDERED: TAMSULOSIN 0.4 MG (FLOMAX) CAP PO SCH (09:00)
[2021-06-18] MEDS ORDERED: NON-FORMULARY MEDICATION 1 EA EA (Fluoxetine HCl 40 MG) PO SCH (09:00)
[2021-06-18] MEDS ORDERED: NON-FORMULARY MEDICATION 1 EA EA (Meloxicam 15 MG) PO SCH (09:00)
[2021-06-18] MEDS ORDERED: NON-FORMULARY MEDICATION 1 EA EA (Lisinopril/Hydrochlorothiazide (Lisinopril-Hctz 20-25 mg PO SCH (09:00)
[2021-06-18] MEDS ORDERED: MULTIVITAMIN PO SCH (09:00)
== END 2021-06-17 13:37 | disposition home or self-care (01) ==
LOC: EDUNIT# 18:02 → ER 18:04 → ICU 20:16 → INTOOBSV 20:16 → 4TH 06-17 11:00
PROVIDERS: ADMIT Internal Medicine; ATTEND Internal Medicine
DX: R29.810 Facial weakness (principal); G45.9 Transient cerebral ischemic attack, unspecified; I10 Essential (primary) hypertension; G43.909 Migraine, unspecified, not intractable, without status migrainosus; F17.210 Nicotine dependence, cigarettes, uncomplicated; Z87.820 Personal history of traumatic brain injury; Z91.14 Patient's other noncompliance with medication regimen
CPT/HCPCS: 70450; 70496; 70498; 70553; 71045; 80053 ×2; 80061; 80306; 81000; 82947; 83735 ×2; 84100; 84484; 84703; 85025 ×2; 85379; 85610; 85730; 93005; 93041; 93306; 93880; 97162; 99284; G0480; 36415; 80320; G0378